=== PATIENT | male | born 1955 | race Caucasian/White ===

== ENCOUNTER 2016-05-06 09:01 | Emergency (ER) | payer OTHER ==
[~2016-05-06] VITALS: Ht 177.8 cm; Wt 81.5 kg
[2016-05-06 09:19] VITALS: Ht 177.8 cm; Wt 81.5 kg
[2016-05-06] MEDS ORDERED: ONDANSETRON 4 MG INJ IV STA ×2 (10:07→12:58)
[2016-05-06] MEDS ORDERED: SOD CHLORIDE 0.9% 1,000 ML IV STA (10:07)
[2016-05-06] MEDS ORDERED: morphine 4 MG/ML VIAL IV STA (10:07)
[2016-05-06] MEDS ORDERED: ONDANSETRON 4 MG INJ ONE ×2 (10:23→12:56)
[2016-05-06] MEDS ORDERED: morphine 4 MG/ML VIAL ONE (10:24)
[2016-05-06 10:48] LABS: HEMATOCRIT 32.7 % (42.0-52.0); HEMOGLOBIN 10.9 g/dl (14.0-18.0); MEAN CORPUSCULAR HEMOGLOBIN 28.9 pg (29.0-33.0); MEAN CORPUSCULAR HGB CONC 33.4 g/dl (32.0-37.0); MEAN CORPUSCULAR VOLUME 86.5 fl (82.0-101.0); MEAN PLATELET VOLUME 8.2 fl (7.4-10.4); PLATELET COUNT 144 10^3/UL (140-440); RED BLOOD COUNT 3.78 10^6/ul (4.70-6.10); RED CELL DISTRIBUTION WIDTH 20.5 % (11.5-14.5); UNCORRECTED WBC 6.8 10^3/ul (4.8-10.8); WHITE BLOOD COUNT 6.8 10^3/ul (4.8-10.8)
[2016-05-06 10:50] LABS: CONDITION 1; LH ANALYZER COMMENTS 1
[2016-05-06] MEDS ORDERED: LENA2.5C PO (10:55)
[2016-05-06] MEDS ORDERED: FINA5TAB4 PO (10:55)
[2016-05-06] MEDS ORDERED: OXYC10TA63 PO (10:55)
[2016-05-06 11:06] LABS: ALBUMIN 3.1 g/dl (3.3-4.9)
[2016-05-06 11:07] LABS: POTASSIUM 5.7 mmol/L (3.5-5.1)
[2016-05-06 11:08] LABS: CREATININE 1.61 mg/dl (0.61-1.24)
[2016-05-06 11:09] LABS: ALBUMIN/GLOBULIN RATIO 0.79; BILIRUBIN,DIRECT 0.3 mg/dl (0.00-0.20); BILIRUBIN,INDIRECT 0.9 mg/dl (0-1.1); BILIRUBIN,TOTAL 1.2 mg/dl (0.2-1.3); CALCIUM 9.5 mg/dl (8.4-10.2)
[2016-05-06 11:21] LABS: EOSINOPHILS # 0.1 10^3/ul (0.0-0.5); LYMPHOCYTES # 2.3 10^3/ul (0.8-2.9); MONOCYTE # 1.1 10^3/ul (0.3-0.9); NEUTROPHIL # 3.2 10^3/ul (1.6-7.5)
[2016-05-06 13:36] LABS: ADD UMIC NO; URINE BILIRUBIN (Dip) NEGATIVE (NEGATIVE); URINE BLOOD (Dip) NEGATIVE (NEGATIVE); URINE COLOR YELLOW (YELLOW); URINE GLUCOSE (Dip) NEGATIVE (NEGATIVE); URINE KETONES (Dip) NEGATIVE (NEGATIVE); URINE LEUKOCYTE ESTERASE (Dip) NEGATIVE (NEGATIVE); URINE NITRITE (Dip) NEGATIVE (NEGATIVE); URINE TOTAL PROTEIN (Dip) NEGATIVE (NEGATIVE); URINE UROBILINOGEN (Dip) 1.0 E.U./dL (0.1-1.0)
--- NOTE | 2016-05-06 15:29 | ERD ---
ER Documentation Chief Complaint Date/Time DATE: 05/06/16 TIME: 15:24 Chief Complaint ABD PAIN W/ N/V & CONSTIPATION SINCE SATURDAY. PT RECIEVES CHEMOTHERAPY. HPI Patient presents with diffuse abdominal pain since Saturday. He has felt nauseated with vomiting. He states the pain moves all over his abdomen. He has been somewhat constipated although he did have a bowel movement yesterday that was normal. Denies any diarrhea, dysuria, hematuria, fever, back pain, flank pain, hematemesis, melena, hematochezia, abdominal trauma. States nothing makes the pain better, nothing makes the pain worse. His last chemo was on April 24. He has prostate cancer which is metastatic to the bones. He denies any chest pain, shortness of breath, hemoptysis, coughing, congestion , rhinorrhea, dyspnea, sore throat, otalgia. He does complain of some left lower extremity swelling. In the remainder of the systems are negative ROS All systems reviewed and are negative except as per history of present illness. Medications Home Meds Reported Medications Finasteride* (Finasteride*) 5 Mg Tablet, 5 MG PO DAILY, TAB 05/06/16 Lenalidomide (REVLIMID) 2.5 Mg Capsule, 5 MG PO DAILY, CAP 05/06/16 Oxycodone Hcl* (Oxycontin*) 10 Mg Tab.sr.12h, 10 MG PO EVERY 4-6 HOURS Y for PAIN, TAB 05/06/16 Allergies Allergies: Coded Allergies: No Known Allergy (Unverified , 05/06/16) PMhx/Soc Hx Miscellaneous Medical Probl: Yes (PROSTATE CA ) Hx Alcohol Use: Yes Hx Substance Use: No Hx Tobacco Use: No Smoking Status: Never smoker FmHx Family History: No coronary disease Physical Exam Vitals Vital Signs Date Time Temp Pulse Resp B/P Pulse Ox O2 Delivery O2 Flow Rate FiO2 05/06/16 09:19 98.9 105 22 120/57 99 Physical Exam Const: Well-developed well-nourished male sitting on the bed in no acute distress. Head: Atraumatic Eyes: Normal Conjunctiva ENT: Normal External Ears, Nose and Mouth. Neck: Full range of motion..~ No meningismus. Resp: Clear to auscultation bilaterally Cardio: Regular rate and rhythm, no murmurs Abd: Soft, mild tenderness to palpation diffusely, non distended. Normal bowel sounds Skin: No petechiae or rashes Back: No midline or flank tenderness Ext: No cyanosis, mild edema of the left lower extremity, negative Homans sign, no calf tenderness. Neur: Awake and alert Psych: Normal Mood and Affect Result Diagram: 05/06/16 1030 05/06/16 1030 Results 24 hrs Laboratory Tests Test 05/06/16 10:30 05/06/16 13:10 Alanine Aminotransferase (ALT/SGPT) 234IU/L Albumin 3.1g/dl Albumin/Globulin Ratio 0.79 Alkaline Phosphatase 358IU/L Anion Gap 29 Aspartate Amino Transf (AST/SGOT) 446IU/L Band Neutrophils % 2.0% Basophils # 10^3/ul Basophils % % Blood Morphology Comment Blood Urea Nitrogen 47mg/dl Calcium Level 9.5mg/dl Carbon Dioxide Level 18mmol/L Chloride Level 89mmol/L Creatinine 1.61mg/dl Differential Comment MANUAL DIFF Direct Bilirubin 0.30mg/dl Eosinophils # 0.110^3/ul Eosinophils % 1.0% Globulin 3.90g/dl Glucose Level 106mg/dl Hematocrit 32.7% Hemoglobin 10.9g/dl Indirect Bilirubin 0.9mg/dl Lipase 51U/L Lymphocytes # 2.310^3/ul Lymphocytes % 34.0% Mean Corpuscular Hemoglobin 28.9pg Mean Corpuscular Hemoglobin Concent 33.4g/dl Mean Corpuscular Volume 86.5fl Mean Platelet Volume 8.2fl Monocytes # 1.110^3/ul Monocytes % 16.0% Neutrophils # 3.210^3/ul Neutrophils % 47.0% Nucleated Red Blood Cells # 10^3/ul Nucleated Red Blood Cells % 6.0/100WBC Platelet Count 21457^3/UL Potassium Level 5.7mmol/L Red Blood Count 3.7810^6/ul Red Cell Distribution Width 20.5% Sodium Level 130mmol/L Total Bilirubin 1.2mg/dl Total Protein 7.0g/dl White Blood Count 6.810^3/ul Urine Bilirubin NEGATIVE Urine Clarity CLEAR Urine Color YELLOW Urine Glucose NEGATIVE% Urine Hemoglobin NEGATIVE Urine Ketones NEGATIVE Urine Leukocyte Esterase NEGATIVE Urine Nitrite NEGATIVE Urine Specific [place] 1.025 Urine Total Protein NEGATIVE Urine Urobilinogen 1.0 E.U./dL Urine pH 5.5 Current Medications Medications (Trade) Dose Ordered Sig/Tye Route PRN Reason Start Time Stop Time Status Last Admin Dose Admin Sodium Chloride (NS) 1,000 ml @ 1,000 mls/hr Q1H STAT IV 05/06/16 10:07 05/06/16 11:06 DC 05/06/16 10:31 Morphine Sulfate (morphine) 4 mg ONCE STAT IV 05/06/16 10:07 05/06/16 10:09 DC 05/06/16 10:29 Ondansetron HCl (Zofran Inj) 4 mg ONCE STAT IV 05/06/16 10:07 05/06/16 10:09 DC 05/06/16 10:31 Ondansetron HCl (Zofran Inj) 4 mg ONCE STAT IV 05/06/16 12:58 05/06/16 13:00 DC 05/06/16 13:08 Procedures/MDM CAT scan of the abdomen and pelvis shows prostatic cancer to be present, diffuse adenopathy throughout the abdomen, malignant ascites. Patient does not have any acute infectious process noted. He does not have a bowel obstruction. Ultrasound of the left lower extremity demonstrates no evidence of a DVT. Departure Diagnosis: Primary Impression: Abdominal pain Abdominal location: generalized Qualified Code: R10.84 - Generalized abdominal pain Additional Impressions: Cancer associated pain Pedal edema Condition: Fair Additional Instructions: Please call your oncologist and set up a follow-up appointment to discuss the CAT scan results and further treatment. Continue on your current medication regimen as previously prescribed. Return to the emergency department immediately for any new or worsening symptoms. MUNA HERNANDEZ May 06, 2016 15:29
[2016-05-06 15:45] VITALS: BP 125/79; PULSE 67; RESP 19; TEMP 98.6
--- NOTE | 2016-05-06 19:19 | RADRPT ---
PROCEDURE: US DVT. CLINICAL INDICATION: Swelling in the left leg TECHNIQUE: Multiple longitudinal and transverse images of the left lower extremity veins were obta ined with augustin scale and color Doppler imaging. 2D grayscale measurements with compression, color D oppler flow, and augmentation was performed. The calf veins were interrogated as well. COMPARISON: No prior studies are available for comparison. FINDINGS: The left common femoral, superficial femoral and popliteal veins are normally compressible throughou t. Color flow demonstrates normal filling of the vessel. Normal waveforms are visualized and there is normal response to augmentation. The calf veins are visualized and are within normal limits. RPTAT: EE IMPRESSION: 1. No evidence of a deep vein thrombosis involving the left lower extremity. 2. No abnormalities of the venous system of the left leg identified. .Jeanette Fernandes MD, Date Time Electronically viewed and signed by .Jeanette Fernandes MD, MD on 05/06/2016 15:06 .T/
--- NOTE | 2016-05-06 19:19 | RADRPT ---
PROCEDURE: CT Abdomen and Pelvis without contrast. CLINICAL INDICATION: Abdominal pelvic pain. Known history of prostate cancer. TECHNIQUE: CT scan of the abdomen and pelvis without contrast was performed on a multidetector hig h-resolution CT scanner. The patient was scanned without intravenous contrast. Coronal and sagittal reformatted images were obtained from the axial source images. Images were reviewed on a high-resol [employer] PACS workstation. The total exam CTDI equals 17.65 mGy and the total exam DLP equals 1079.98 m Gy-cm. One or more of the following dose reduction techniques were used: - Automated exposure control. - Adjustment of the mA and/or kV according to patient size. - Use of iterative reconstruction technique. COMPARISON: None. FINDINGS: CT abdomen: The lung bases are remarkable for patchy subsegmental atelectasis within the right middle lobe, left lingula, and lung bases bilaterally. Tiny sliver of fluid is seen layering within the right lung b ase. The heart size is normal, without pericardial thickening or effusion. Mild adenopathy in the right pericardiophrenic recess is present. The liver is normal in size and density without focal mass or intrahepatic biliary dilatation. The spleen is normal in size and homogeneous in density. The stomach is partially collapsed, but is otilia ssly unremarkable. The pancreas as visualized is normal. The gallbladder and biliary tree are unre markable and there is no evidence for biliary dilatation. The adrenal glands are symmetric and norm al. The kidneys are symmetrically unremarkable as well. No renal calculus or obstructive uropathy or mass lesion is seen. The aorta is of normal caliber. Aortic vascular calcifications are present. There is mild diffuse scattered retroperitoneal lymphadenopathy. Mild epigastric and natty hepatis lymphadenopathy is see n as well. The bowel loops scattered throughout the abdomen are unremarkable. Moderate diffuse sca ttered ascites is seen throughout the abdominal cavity. Mesenteric edema is seen as well, moderate in degree. CT pelvis: The small bowel loops situated within the pelvis are unremarkable. Moderate ascites is seen layering within the pelvis. The pelvic organs are remarkable for enlargement and heterogeneity of the prosta te gland. Significant nodularity adjacent to the prostate gland and adjacent to the rectum is seen. Significant perirectal and presacral adenopathy is identified. Severe nodularity and adenopathy w ithin the sigmoid mesentery is identified. Findings are consistent with neoplasm. Adenopathy along the left iliac janessa chain is present. The inguinal regions are clear. Mild stranding and edema in the presacral space is present. Atherosclerotic vascular calcifications are identified within the pelvis. No focal acute inflammatory process is present. The bladder is partially collapsed and decompressed but otherwise grossly unremarkable. The surrounding osseous structures are remarkable for severe and diffuse and extensive osteoscleroti c bony metastases throughout all of the visualized bony structures. IMPRESSION: 1. Severe, diffuse, extensive osteosclerotic metastases throughout all of the bony structures. Fin dings are related to prostate cancer metastases. 2. Enlargement and nodularity of the prostate gland extending to the left posterior pelvis, consist ent with known prostate cancer. 3. Significant nodularity and adenopathy around the [place]-prostatic and perirectal and presacral spa [place] as well as along the posterior pelvis, again consistent with extensive prostate cancer spread. 4. Extensive adenopathy within the retroperitoneum and epigastrium and natty hepatis region. Adeno aneduy is seen in the right pericardiophrenic recess and the left iliac chain as well. Findings are all consistent with diffuse lymphatic spread of neoplasm from prostate cancer. 5. Diffuse moderate ascites throughout the abdominal pelvic cavity with diffuse mesenteric edema. Malignant ascites is most likely, again likely due to the patient's prostate cancer. Call report was made and findings discussed with Dr. James in the ER at 3:05 p.m. on 05/06/2016. RPTAT: HMJB .Gerald Reyes MD, MD Date Time Electronically viewed and signed by .Gerald Reyes MD, MD on 05/06/2016 15:08 .B/
== END 2016-05-06 17:39 | disposition home or self-care (01) ==
LOC: E/R 09:01
DX: R10.84 Generalized abdominal pain (principal); G89.3 Neoplasm related pain (acute) (chronic); R60.0 Localized edema; R11.2 Nausea with vomiting, unspecified; Z85.46 Personal history of malignant neoplasm of prostate
CPT/HCPCS: 36415; 74176; 80053; 81003; 83690; 85025; 93971; 96374; 96375; 96376; J2270; J2405; J7030; Z7502

== ENCOUNTER 2016-05-09 12:39 | Inpatient (IN) | payer OTHER ==
[~2016-05-09] VITALS: Ht 165.1 cm; Wt 86.4 kg
[~2016-05-09 12:39] MED LIST: ETOMIDATE 20 MG INJ ONE; FINA5TAB4 PO; LENA2.5C PO; OXYC10TA63 PO
[2016-05-09] MEDS ORDERED: SOD CHLORIDE 0.9% 150 ML IV STA (13:36)
[2016-05-09] MEDS ORDERED: MEG40/1 PO (13:43)
[2016-05-09] MEDS ORDERED: OXYC30TA PO (13:43)
[2016-05-09] MEDS ORDERED: TAMS0.4C2 PO (13:43)
[2016-05-09] MEDS ORDERED: ENZA40CA PO (13:44)
[2016-05-09] MEDS ORDERED: CHOL100062 PO (13:45)
[2016-05-09] MEDS ORDERED: ONDA-43 PO (13:45)
[2016-05-09] MEDS ORDERED: OXYCODONE/ACETAMINOPHEN (10/325) TAB PO ONE (14:00)
--- NOTE | 2016-05-09 14:15 | ERA ---
ER Documentation Chief Complaint Date/Time DATE: 05/09/16 TIME: 1327 Chief Complaint Generalized weakness, fluid retentionin abdomen, low apettite, prostate CA. HPI 60-year-old male presents to the emergency department with his daughter for evaluation of generalized weakness. Patient is a long-standing history of diffuse metastatic advanced prostate cancer. Patient was seen and evaluated on 06 May with a known diagnosis of advanced metastatic cancer. Patient followed up with his oncologist today and was referred back to the emergency department. According to the daughter, patient had a generalized weakness over the last few days which is progressive. Patient has had no fevers or chills. Patient has had no shortness of breath. The daughter reports the patient having increasing abdominal distention. Patient reports requiring his ongoing pain medication, but with no new medications recently. ROS All systems reviewed and are negative except as per history of present illness. Medications Home Meds Reported Medications Ondansetron Hcl* (Zofran*) 4 Mg Tab, 4 MG PO Q6 Y for NAUSEA AND OR VOMITING, TAB 05/09/16 Cholecalciferol* (Vitamin D3*) 1,000 Unit Tablet, 1000 UNIT PO DAILY, TAB 05/09/16 Enzalutamide (XTANDI) 40 Mg Capsule, 160 MG PO DAILY, CAP 05/09/16 Megestrol Acetate* (Megestrol Acetate*) 400 Mg/10 Ml Susp, 200 MG PO BID, ML 05/09/16 Oxycodone Hcl* (IR) (Oxycodone Hcl*) 30 Mg Tablet, 30 MG PO Q4H WHILE AWAKE Y for PAIN, TAB 05/09/16 Tamsulosin Hcl* (Tamsulosin Hcl*) 0.4 Mg Cap.er.24h, 0.4 MG PO HS, CAP 05/09/16 Finasteride* (Finasteride*) 5 Mg Tablet, 5 MG PO DAILY, TAB 05/06/16 Lenalidomide (REVLIMID) 2.5 Mg Capsule, 5 MG PO DAILY, CAP 05/06/16 Discontinued Reported Medications Oxycodone Hcl* (Oxycontin*) 10 Mg Tab.sr.12h, 10 MG PO EVERY 4-6 HOURS Y for PAIN, TAB 05/06/16 Allergies Allergies: Coded Allergies: No Known Allergy (Unverified , 05/09/16) PMhx/Soc Hx Miscellaneous Medical Probl: Yes (PROSTATE CA ) Hx Alcohol Use: Yes Hx Substance Use: No Hx Tobacco Use: No FmHx Noncontributory for chief complaint with supportive daughter at the bedside. Physical Exam Vitals Vital Signs Date Time Temp Pulse Resp B/P Pulse Ox O2 Delivery O2 Flow Rate FiO2 05/09/16 13:00 97.5 116 22 96/57 98 Physical Exam GENERAL: Patient is a frail, elderly, pale appearing male. HEENT: Pupils equal, round, and reactive to light. EOMI. There is no scleral icterus. Pallor is noted NECK: C-spine is soft and supple, there is no meningismus. There is no cervical lymphadenopathy. LUNGS: Clear to auscultation bilaterally. There are no rales, wheezes or rhonchi. HEART: Regular rate and rhythm, no murmurs, clicks, rubs or gallops. ABDOMEN: Soft and distended with a fluid wave. No significant tenderness to palpation. No CVA tenderness EXTREMITIES: 1+ edema bilaterally with no cyanosis or clubbing NEURO: The patient moves all four extremities with 5/5 strength. Cranial nerves II - XII are intact. Normal gait. Alert and oriented SKIN: There is no apparent rash or petechiae. HEME/LYMPHATIC: There is no evidence of excessive bruising or lymphedema. PSYCHIATRIC: The patient does not appear anxious or depressed. Results 24 hrs Current Medications Medications (Trade) Dose Ordered Sig/Tye Route PRN Reason Start Time Stop Time Status Last Admin Dose Admin Sodium Chloride (NS) 150 ml @ 150 mls/hr Q1H STAT IV 05/09/16 13:36 05/09/16 14:35 DC 05/09/16 13:36 Oxycodone/ Acetaminophen (Endocet (10/ 325)) 1 tab ONCE ONCE PO 05/09/16 14:00 05/09/16 14:01 DC 05/09/16 14:35 Procedures/MDM Patient was taken to a room, seen and evaluated. Comfort measures were initiated. Diagnostic tests were ordered and reviewed. 3 LEAD RHYTHM STRIP: Sinus tachycardia EK lead EKG reviewed by myself: Sinus tachycardia Normal [place] and intervals No ST elevation, depression, or T wave inversion Impression: Sinus tachycardia without evidence of obvious acute ischemia RADIOLOGY: reviewed with the radiologist CONSULTATION: hospitalist was notified for admission. I spoke with the patient' s oncologist who referred me to Dr. Coronado, who I spoke with for admission. REEVALUATION: Patient remains hemodynamically stable MEDICAL DECISION MAKIN-year-old male presents to the emergency department with generalized weakness in the setting of a diffuse advanced prostate cancer. Patient is evidence of metastatic disease with metastatic ascites noted on CT scan from the other day. He is anemic but hemodynamically stable and not requiring emergent transfusion. Patient has no evidence of acute obvious infection initially. At this point, patient appears to be significantly weak and dehydrated. I have started fluids. Patient will require admission to the hospital for oncologic consultation, palliative management and further care. Departure Diagnosis: Primary Impression: Prostate cancer metastatic to bone Additional Impressions: Metastatic malignant neoplasm to prostate Malignant ascites Condition: Serious BERNI[place]ASS May 09, 2016 14:14
--- NOTE | 2016-05-09 14:18 | RADRPT ---
PROCEDURE: Chest x-ray CLINICAL INDICATION: Pain. TECHNIQUE: One-view frontal. COMPARISON: None available FINDINGS: The cardiac silhouette is normal. Port-A-Cath overlies the right chest. The catheter is near the cavoatrial junction. Bibasilar scarring versus atelectatic changes are noted. No pneumothorax is noted. No hilar abnormalities are identifiable. Extensive sclerotic bony metastatic disease is identified. This was noted on the patient's recent C T study of 05/06/2016. IMPRESSION: 1. Scarring versus atelectatic changes in the lower lung zones. 2. Extensive sclerotic bony metastatic disease. The patient has a history of prostatic carcinoma. RPTAT: HH .Pasquale Nevarez MD, MD Date Time Electronically viewed and signed by .Pasquale Nevarez MD, on 05/09/2016 14:18 .G/
[2016-05-09 14:51] LABS: HEMATOCRIT 37.8 % (42.0-52.0); HEMOGLOBIN 12.2 g/dl (14.0-18.0); MEAN CORPUSCULAR HEMOGLOBIN 28.9 pg (29.0-33.0); MEAN CORPUSCULAR HGB CONC 32.2 g/dl (32.0-37.0); MEAN CORPUSCULAR VOLUME 89.8 fl (82.0-101.0); MEAN PLATELET VOLUME 7.9 fl (7.4-10.4); PLATELET COUNT 130 10^3/UL (140-440); RED BLOOD COUNT 4.21 10^6/ul (4.70-6.10); RED CELL DISTRIBUTION WIDTH 22.6 % (11.5-14.5); UNCORRECTED WBC 20.6 10^3/ul (4.8-10.8)
[2016-05-09 14:53] LABS: CONDITION 1; SUSPECT 1
[2016-05-09 14:54] LABS: LH ANALYZER COMMENTS 1
[2016-05-09 15:01] LABS: ALBUMIN 3.1 g/dl (3.3-4.9)
[2016-05-09 15:02] LABS: POTASSIUM 5.8 mmol/L (3.5-5.1)
[2016-05-09] MEDS ORDERED: CEFTRIAXONE 1 GM/50 ML (PMX) 50 ML IVPB STA (15:03)
[2016-05-09 15:04] LABS: ALBUMIN/GLOBULIN RATIO 0.77; BILIRUBIN,DIRECT 1.8 mg/dl (0.00-0.20); BILIRUBIN,TOTAL 2.8 mg/dl (0.2-1.3); CREATININE 1.78 mg/dl (0.61-1.24); TOTAL PROTEIN 7.1 g/dl (6.1-8.1)
[2016-05-09 15:05] LABS: CALCIUM 10.4 mg/dl (8.4-10.2)
[2016-05-09 15:19] LABS: ANISOCYTOSIS 3+; HYPOCHROMASIA RARE; POLYCHROMASIA RARE
[2016-05-09 15:20] LABS: PLATELET ESTIMATE PLT APPEAR ADEQUATE
[2016-05-09] MEDS ORDERED: morphine 4 MG/ML VIAL IV STA (15:49)
[2016-05-09 16:00] LABS: WHITE BLOOD COUNT 20.6 10^3/ul (4.8-10.8)
[2016-05-09 16:23] LABS: LYMPHOCYTES # 5.2 10^3/ul (0.8-2.9); MONOCYTE # 2.5 10^3/ul (0.3-0.9); NEUTROPHIL # 9.3 10^3/ul (1.6-7.5)
[2016-05-09 16:24] LABS: BASOPHIL # 0.2 10^3/ul (0.0-0.1); EOSINOPHILS # 1.2 10^3/ul (0.0-0.5); MYELOCYTES # 0.4
[2016-05-09] MEDS ORDERED: MAGNESIUM HYDROXIDE 30ML CUP PO PRN (16:30)
[2016-05-09] MEDS ORDERED: morphine 2 MG INJ IV PRN (16:30)
[2016-05-09] MEDS ORDERED: ALBUTEROL/IPRATROPIUM (NEB) 3 ML AMP HHN PRN (16:30)
[2016-05-09] MEDS ORDERED: ONDANSETRON 4 MG INJ IV PRN (16:30)
[2016-05-09] MEDS: IMIPENEM-CILAST 500MG IV (PMX) 100 ML IVPB SCH (16:30)
[2016-05-09] MEDS ORDERED: NITROGLYCERIN (SL) 0.4 MG TAB SL PRN (16:30)
[2016-05-09] MEDS ORDERED: hydrALAzine 20 MG INJ IV PRN (16:30)
[2016-05-09] MEDS ORDERED: HYDROCODONE/APAP (5/325) TAB PO PRN (16:30)
[2016-05-09] MEDS ORDERED: NA PHOSPHATE/BIPHOS 133 ML ENEMA PR PRN (16:30)
[2016-05-09] MEDS ORDERED: NACL 0.9% 3 ML SYG IV SCH (16:30)
[2016-05-09] MEDS ORDERED: DOCUSATE SODIUM 100 MG CAP PO PRN (16:30)
[2016-05-09] MEDS ORDERED: HYDROmorphONE 1 MG/ML SYG IV PRN ×2 (16:30→22:30)
[2016-05-09] MEDS ORDERED: VANCOMYCIN IV PER PHARMACY XX SCH (16:30)
[2016-05-09] MEDS ORDERED: oxyCODONE 15 MG TAB PO PRN (16:30)
[2016-05-09] MEDS ORDERED: LORAZEPAM 2 MG INJ IV PRN (16:30)
[2016-05-09] MEDS ORDERED: ACETAMINOPHEN 325 MG TAB PO PRN (16:30)
[2016-05-09 17:19] LABS: INR 2.26; PROTIME 25.2 Sec (12.2-14.2)
[2016-05-09 17:20] LABS: PARTIAL THROMBOPLASTIN TIME 37.9 Sec (25.0-35.0)
--- NOTE | 2016-05-09 17:33 | EN ---
Date/Time of Note Date/Time of Note DATE: 05/09/16 TIME: 17:32 ER Progress Note This patient had an ultrasound paracentesis ordered. The concern was to rule out spontaneous pectoral peritonitis. The patient was started on Rocephin here in the emergency room. The patient's oncologist was at bedside and was requesting a MRI of the thoracic, cervical, lumbar spine to rule out metastases. This patient was an MRI and I was notified that our interventional radiologist could not perform the paracentesis. The paracentesis will be done tomorrow morning. MOMO CRAIG DO May 09, 2016 17:33
--- NOTE | 2016-05-09 17:49 | CONS ---
DATE OF ADMISSION: 05/09/2016 DATE OF CONSULTATION: ADDENDUM The patient also has a Port-A-Cath in place and, although it is not tender, it could also be the bisi rce of infection and therefore the vancomycin is certainly appropriate as well as the imipenem. Dictated By: LEV PECK MD, JD/GHASSAN Conf#: [id number] DID#: [id number]
--- NOTE | 2016-05-09 17:54 | CONS ---
DATE OF ADMISSION: 05/09/2016 DATE OF CONSULTATION: 05/09/2016 TYPE OF CONSULTATION: Infectious Disease. REASON FOR CONSULTATION: Antibiotic management. HISTORY OF PRESENT ILLNESS: Ovidio Gaona is a 60-year-old, unfortunate, male who comes in with generalized weakness, fluid retention, poor appetite and prostate CA. His problems include a l ongstanding history of diffuse metastatic advanced prostate CA. He was seen by an oncologist and wa s referred back to the emergency room. He had generalized weakness over the last few days, which is progressive. He has no fever or chills. He has no shortness of breath. Daughter reports that yasir koehler is having increasing abdominal distention and he requires ongoing pain medicines. PAST MEDICAL HISTORY: Operations, as outlined. FAMILY HISTORY: Noncontributory. SOCIAL HISTORY: He does not smoke. He drinks some alcohol. He does not abuse substances. ALLERGIES: NONE TO PENICILLIN, SULFA OR FOODS. MEDICATIONS: Per chart. REVIEW OF SYSTEMS: As per HPI. PHYSICAL EXAMINATION GENERAL: The patient is an elderly appearing, frail, pale male, alert, responsive, in no acute dist ress. VITAL SIGNS: Stable. He is afebrile. SKIN: Without generalized rash. HEENT: Within normal limits. NECK: Supple. LYMPHATIC: Lymph nodes, none palpable. CHEST: Decreased breath sounds at the bases. HEART: Without murmur or gallops. ABDOMEN: Soft, nontender, distended with a fluid wave, without organosplenomegaly or masses. He arndt s no CVA tenderness. EXTREMITIES: Without cyanosis, clubbing or edema. RECTAL: Deferred. GENITAL: Deferred. NEUROLOGIC: No focal neurological abnormalities. IMAGING: A chest x-ray shows scarring versus atelectatic changes in the lower lung zones, extensive sclerotic bony metastases, with a history of prostate CA. ANCILLARY LABORATORY DATA: His white count was 20.6; H and H of 12.2 and 37.8; platelet count of 13 0,000, with 45% polys, 6% bands. BUN and creatinine are 47 and 1.78. Bilirubin is 2.8, direct bili watkins is 1.8, AST is 516, ALT 247, alkaline phosphatase 382. Total protein 7.1, albumin is 3.1, shade bulin 4.0. IMPRESSION AND PLAN: The patient appears to have sepsis with significant leukocytosis. He has gene ralized weakness. He has had 2 blood cultures and a urine culture drawn. He is currently on vancom ycin and imipenem to cover all entities and I concur with that. I will await his cultures, urine an d blood. I will dictate my findings to the hospitalist. Dictated By: LEV PECK MD, JD/GHASSAN Conf#: [id number] DID#: [id number]
--- NOTE | 2016-05-09 18:13 | CONS ---
Date/Time of Note Date/Time of Note DATE: 05/09/16 TIME: 17:56 Assessment/Plan Assessment/Plan Chief Complaint/Hosp Course The patient is a 60 year old male treated by Dr. César Barnes with metastatic prostate cancer, GS 10, with diffuse osseous mets and diffuse LAD, diagnosed 2015 previously on hormonal therapy and taxotere/carboplatin/avastin then xtandi with progression, and now was planning on being switched to cabazitaxel due to progression of disease, but presents with lethargic, decreased PO intake , back and abdominal pain, weakness and increased abdominal distention for the past week. - Plan for STAT MRI C-T-L spine due to new incontinence, worsening weakness, and back pain to rule out cord compression in the setting of diffuse osseous mets from prostate cancer - Plan for paracentesis, rule out SBP, please send for cytology - Case discussed with his primary oncologist Dr. Barnes. Plan for supportive care, then plan to initiate cabazitaxel once discharged. Will continue to follow. Problems: Consultation Date/Type/Reason Admit Date/Time Date of Consultation: May 09, 2016 Type of Consultation: Hematology/Oncology Reason for Consultation Metastatic prostate cancer Hx of Present Illness The patient is a 60 year old male treated by Dr. César Barnes with metastatic prostate cancer, GS 10, with diffuse osseous mets and diffuse LAD, diagnosed 2015 previously on hormonal therapy and taxotere/carboplatin/avastin then xtandi with progression, and now was planning on being switched to cabazitaxel due to progression of disease, but presents with lethargic, decreased PO intake , back and abdominal pain, weakness and increased abdominal distention for the past week. His family also reports new incontinence and worsening weakness with difficulty walking from the bed to the restroom. 10 point review of systems neg except as noted above Past Medical History Diabetes Metastatic prostate cancer Family History Significant Family History: no pertinent family hx Social History Alcohol Use: none Smoking Status: Never smoker Exam/Review of Systems Vital Signs Vitals Vital Signs Date Time Temp Pulse Resp B/P Pulse Ox O2 Delivery O2 Flow Rate FiO2 05/09/16 13:00 97.5 116 22 96/57 98 Exam Constitutional: alert, distress, oriented Head: normocephalic Neck: supple Respiratory: clear to auscultation Cardiovascular: regular rate and rhythm Gastrointestinal: ascites, soft Musculoskeletal: nl extremities to inspection Neurological: other (5-/5 throughout, no saddle anesthesia, sensation intact to light touch) Results Result Diagram: 05/09/16 1428 05/09/16 1428 Results 24 hrs Laboratory Tests Test 05/09/16 14:15 05/09/16 14:28 05/09/16 16:45 Free Thyroxine 1.57 Alanine Aminotransferase (ALT/SGPT) 247 H Albumin 3.1 L Albumin/Globulin Ratio 0.77 Alkaline Phosphatase 382 H Anion Gap 41 H Anisocytosis 3+ Aspartate Amino Transf (AST/SGOT) 516 H Band Neutrophils % 6.0 H Basophils # 0.2 H Basophils % 1.0 Blood Morphology Comment Blood Urea Nitrogen 47 H Calcium Level 10.4 H Carbon Dioxide Level 7 *L Chloride Level 90 L Creatinine 1.78 H Direct Bilirubin 1.80 H Eosinophils # 1.2 H Eosinophils % 6.0 Globulin 4.00 H Glucose Level 126 Hematocrit 37.8 L Hemoglobin 12.2 L Hypochromasia RARE Indirect Bilirubin 1.0 Lipase 70 Lymphocytes # 5.2 H Lymphocytes % 25.0 Macrocytosis 1+ Mean Corpuscular Hemoglobin 28.9 L Mean Corpuscular Hemoglobin Concent 32.2 Mean Corpuscular Volume 89.8 Mean Platelet Volume 7.9 Metamyelocytes # 0.4 Metamyelocytes % 2.0 H Monocytes # 2.5 H Monocytes % 12.0 H Myelocytes # 0.4 Myelocytes % 2.0 H Neutrophils # 9.3 H Neutrophils % 45.0 Nucleated Red Blood Cells # Nucleated Red Blood Cells % 21.0 H Platelet Count 130 L Platelet Estimate PLT APPEAR ADEQUATE Polychromasia RARE Potassium Level 5.8 H Promyelocytes # 0.2 Promyelocytes % 1.0 H Reactive Lymphocytes % Red Blood Count 4.21 L Red Cell Distribution Width 22.6 H Sodium Level 132 L Total Bilirubin 2.8 H Total Protein 7.1 White Blood Count 20.6 #H Activated Partial Thromboplast Time 37.9 H INR International Normalized Ratio 2.26 Prothrombin Time 25.2 H Prothrombin Time Ratio 2.0 Medications Medications Current Medications Ondansetron HCl (Zofran Inj) 4 mg Q6H PRN IV NAUSEA AND/OR VOMITING; Start 05/09 at 16:30 Acetaminophen (Tylenol Tab) 650 mg Q6H PRN PO PAIN LEVEL 1-3 OR FEVER; Start at 16:30 Acetaminophen/ Hydrocodone Bitart ([place] (5/325)) 1 tab Q6H PRN PO MODERATE PAIN LEVEL 4-6; Start 05/09/16 at 16:30 Morphine Sulfate (morphine) 2 mg Q4H PRN IV SEVERE PAIN LEVEL 7-10; Start at 16:30 Hydromorphone HCl (Dilaudid) 0.5 mg Q4H PRN IV SEVERE PAIN LEVEL 7-10; Start at 16:30 Docusate Sodium (Colace) 100 mg Q12H PRN PO CONSTIPATION; Start 05/09/16 at 16: 30 Magnesium Hydroxide (Milk Of Mag) 30 ml DAILY PRN PO CONSTIPATION; Start at 16:30 Sodium Biphosphate/ Sodium Phosphate (Fleet Enema) 133 ml DAILY PRN VT CONSTIPATION; Start 05/09/16 at 16:30 Pantoprazole (Protonix Iv) 40 mg DAILY@06 IV ; Start 05/10/16 at 06:00 Heparin Sodium (Porcine) (Heparin (5000 Units/0.5 ml)) 5,000 unit Q12 SC ; Start 05/09/16 at 21:00 Lorazepam (Ativan) 0.5 mg Q6H PRN IV ANXIETY; Start 05/09/16 at 16:30 Vancomycin HCl (Vanco Iv Per Pharmacy) VANCOMYCIN PER PHARMACY NOTE XX ; Start 05/09/16 at 16:30; Status UNV Hydralazine HCl (Apresoline) 10 mg Q6H PRN IV ELEVATED BLOOD PRESSURE; Start at 16:30 Nitroglycerin (Nitroglycerin (Sl Tab) 0.4 Mg) 1 tab Q5M PRN SL ANGINA; Start at 16:30 Cholecalciferol (Vitamin D) 1,000 unit DAILY PO ; Start 05/10/16 at 09:00 Finasteride (Proscar) 5 mg DAILY PO ; Start 05/10/16 at 09:00 Megestrol Acetate (Megace Susp) 200 mg BID PO ; Start 05/09/16 at 21:00 Tamsulosin HCl (Flomax) 0.4 mg HS PO ; Start 05/09/16 at 21:00 Miscellaneous Information 160 mg DAILY PO ; Start 05/10/16 at 09:00; Status UNV Miscellaneous Information 5 mg 5 mg DAILY PO ; Start 05/10/16 at 09:00; Status UNV Imipenem/ Cilastatin Sodium (Primaxin 500 Mg/ 100 ml (Pmx)) 100 ml @ 100 mls/ hr Q8 IVPB ; Start 05/09/16 at 16:30 TOMARY KATE MD May 09, 2016 18:09
--- NOTE | 2016-05-09 18:19 | RADRPT ---
PROCEDURE: MR Cervical Spine. CLINICAL INDICATION: Metastatic disease. Prostate carcinoma. TECHNIQUE: An MRI of the cervical spine was performed on a GE short bore high-definition 1.5 bethany scanner utilizing the following sequences: Sagittal and axial T1 weighted, sagittal and axial T2 we ighted, sagittal T2 weighted with fat saturation, and axial GRE. COMPARISON: No prior studies are available for comparison. FINDINGS: Of the visualized intracranial contents and posterior fossa contents are unremarkable. The cervical spinal cord is normal in course and caliber. No focal intramedullary signal abnormality. There is a diffuse marrow signal loss throughout the entire visualized cervical upper thoracic spine compati ble with metastatic disease and marrow infiltration. Diffuse sclerosis is noted on CT involving all visualized vertebral bodies compatible with sclerotic metastasis. Marrow signal hyperintensity within C2, C4, C5, C6, T1, and T3. Which may represent a combination o f metastatic disease and degenerative marrow changes. Reversal of the normal cervical lordosis greatest at C5-C6. Occiput-C2: The anatomic relationships are normal without canal stenosis. C2-3: The intervertebral disc is normal without foraminal or canal narrowing. C3-4: The intervertebral disc is normal without foraminal or canal narrowing. Minimal anterolisthes is of C3-C4 of 1-2 mm. No disk protrusion. C4-5: Anterior endplate spurring. The intervertebral disc is normal without foraminal or canal narr owing. Mild circumferential disk bulging without disk protrusion. C5-6: Anterior endplate spurring. The intervertebral disc is normal without foraminal or canal narro wing. Minimal disk bulging and posterior spondylitic ridging. C6-7: Anterior endplate spurring. The intervertebral disc is normal without foraminal or canal narr owing. C7-T1: The intervertebral disc is normal without foraminal or canal narrowing. No paraspinal soft tissue mass. Image degradation secondary to patient motion. IMPRESSION: 1. Reversal of the normal cervical lordosis without focal disk protrusion or significant stenosis. 2. Normal-caliber cervical spinal cord without evidence of syringohydromyelia. 3. Extensive marrow replacement and metastatic disease most pronounced involving C2, C4, C5, C6 , T 1 and T3 vertebral bodies. RPTAT:AAJJ J Port, Physician Date Time Electronically viewed and signed by Bharathi Anguiano Physician on 05/09/2016 18:19 NICHOLE/
--- NOTE | 2016-05-09 18:32 | RADRPT ---
PROCEDURE: MRI Thoracic Spine without contrast. CLINICAL INDICATION: 60-year-old male with extensive metastatic prostate cancer and generalized we akness. Evaluate for cord compression. TECHNIQUE: An MRI of the thoracic spine was performed with multiple sequences in the sagittal and axial planes without contrast. Images reviewed on a high-resolution PACS system. COMPARISON: CT abdomen pelvis 05/06/2016 FINDINGS: There is diffuse, extensive heterogeneity of the marrow signal throughout the lumbar spine, with weston r complete replacement of the T5, T7, T8 and T9 vertebral bodies with tumor. There is suggestion of prominence of the left epidural space at T7, which may be related to epidural spread of tumor (axia l series image 25, sagittal series image 4).. There is also isointense signal in the epidural space at T9 (sagittal series image 9, axial image 34), which may represent epidural extension of tumor at this level. There is no significant narrowing of the thoracic thecal sac the alignment of the thor acic spine is within normal limits. There is minimal desiccation of the T5-6 and T6-7 intervertebra l discs with preserved heights. No significant discogenic endplate changes are seen. There is no d efinite evidence of pathologic fracture at this time. IMPRESSION: 1. Diffuse, extensive heterogeneity of the marrow signal throughout the thoracic spine consistent w ith extensive prostate cancer metastases. There is isointensity in the epidural space at T7 and T9, concerning for possible epidural extension of tumor. Post contrast MRI of the thoracic spine is re commended for further evaluation. 2. Mild degenerative disc disease in the mid thoracic spine. 3. The thoracic spinal cord is normal in signal and caliber. No definite compression of the thoraci c spinal cord is seen at this time. RPTAT: HGAS .Shawn Del Castillo MD, MD Date Time Electronically viewed and signed by .Shawn Del Castillo MD, on 05/09/2016 18:32 .S/
[2016-05-09 18:42] VITALS: TEMP 97.8
--- NOTE | 2016-05-09 18:48 | RADRPT ---
PROCEDURE: MRI Lumbar Spine without contrast. CLINICAL INDICATION: 60-year-old male with metastatic prostate cancer, weakness. TECHNIQUE: An MRI of the lumbar spine was performed with multiple sequences in the sagittal and ax ial planes without contrast. Images reviewed on a high-resolution PACS system. COMPARISON: None available at the time of dictation. FINDINGS: there is straightening of the lumbar spine without significant reversal of normal lumbar lordosis . No vertebral body subluxation is seen. There is desiccation of the intervertebral discs from L3-4 to L5-S1 with mild loss of disc-space height at these levels. The vertebral body heights are mainta ined. There is no definite evidence of acute compression fracture at this time. There is extensive heterogeneity throughout the lumbar spine vertebral bodies, consistent with patient history of meta static prostate cancer, with involvement of the spinous processes as well as the pedicles. The conu s medullaris is visible at the L1 level and appears grossly normal. The lumbar nerve roots are nor mal in appearance. The paraspinal soft tissues are unremarkable. No significant paraspinal soft tis bandar swelling. L1-L2: There is a 1 mm annular disc bulge. The thecal sac and lateral recesses are patent. The ne ural foramina are patent. L2-L3: There is a 2 mm annular disc bulge. The thecal sac and lateral recesses are patent. There is mild bilateral facet spondylosis. There is mild bilateral neural foraminal narrowing. L3-L4: There is a 4-5 mm posterior disc bulge, slightly asymmetric to the right. The thecal sac me asures 6.5 mm midline AP diameter. There is severe right and moderate left lateral recess narrowing . There is mild bilateral facet spondylosis. There is mild prominence of the dorsal epidural fat. There is moderate bilateral neural foraminal narrowing. L4-L5: There is a 2-3 mm annular disc bulge. The thecal sac is patent. There is mild narrowing of both lateral recesses. There is mild bilateral facet spondylosis. There is moderate bilateral jamal ral foraminal narrowing. L5-S1: There is a 2-3 mm annular disc bulge. The thecal sac is patent. There is mild narrowing of both lateral recesses. There is mild bilateral facet spondylosis. There is moderate bilateral jamal ral foraminal narrowing. IMPRESSION: 1. 4-5 mm posterior disc bulge at L3-4 with subsequent severe spinal stenosis, severe right and mod erate left lateral recess narrowing and moderate bilateral neural foraminal narrowing. 2. The remaining lumbar spine demonstrates moderate spondylosis without significant narrowing of th e lumbar thecal sac. There is mild narrowing of both lateral recesses at L4-5. 3. Extensive heterogeneity of the marrow signal consistent with given patient history of metastatic prostate cancer. No definite evidence of epidural spread of tumor is seen at this time. Post cont rast evaluation may be helpful for further evaluation. The above findings were discussed with Patient's physician Maryjane Carroll by telephone on 05/09/2016 6:45:35 PM. RPTAT: HGAS .Shawn Del Castillo MD, MD Date Time Electronically viewed and signed by .Shawn Del Castillo MD, MD on 05/09/2016 18:47 .S/
[2016-05-09] MEDS ORDERED: SODIUM BICARBONATE (IV ADD) 150 MEQ in DEXTROSE 5% 1,000 ML IV SCH (19:00)
--- NOTE | 2016-05-09 19:38 | HP ---
DATE OF ADMISSION: 05/09/2016 CHIEF COMPLAINT: Generalized weakness, low appetite, and fluid abdominal retention. HISTORY OF PRESENT ILLNESS: A 60-year-old male with past medical history of diffuse metastatic adva nced prostate cancer followed by Dr. Barnes, hematology/oncology doctor, as an outpatient who, per rachel rodriguez, has been having lethargy, some vomiting, symptoms of abdominal distention. The symptoms have been going on for about the last 1 or 1-1/2 weeks. He has also had decreased bowel movements and h e has been having nonbilious, nonbloody vomiting despite or p.o. intake. No upper or lower GI bleed ing, no headaches, chest pain, no loss consciousness, no fevers or chills. Family took him to the ematology/oncology doctor mentioned above and hematology/oncology doctor became concerned and instru cted the family to bring the patient to the ER, given the patient's symptoms. When he came in today , he was found with an elevated white blood cell count of 20,000, and also elevated lactic acid leve ls as well and elevated LFTs and was seen by infectious disease team and hematology/oncology team he re in the ER as well. PAST MEDICAL HISTORY: As stated above. ALLERGIES: NO KNOWN DRUG ALLERGIES. MEDICATIONS: 1. Xtandi 160 mg daily. 2. Revlimid 5 mg daily. 3. Megace 200 mg b.i.d. 4. Flomax 0.4 mg at bedtime. 5. OxyIR 30 mg p.o. q.4 p.r.n. 6. Zofran 4 mg p.o. q.6h. p.r.n. 7. Vitamin D3 at 1000 units daily. 8. Finasteride 5 mg daily. PAST SURGICAL HISTORY: As stated above. ALLERGIES: NO KNOWN DRUG ALLERGIES. SOCIAL HISTORY: Occasional alcohol use, but negative for smoking or IV drug abuse. FAMILY HISTORY: Noncontributory. PHYSICAL EXAMINATION: VITAL SIGNS: T-max 97.5, pulse 116, respirations 22, blood pressure 90/57, satting at 98% on room a ir. GENERAL: The patient is lying in bed in moderate distress, complaining of pain symptoms. HEENT: Pupils equal, round, react to light. Extraocular muscles intact. NECK: Supple. No thyromegaly. LUNGS: Clear to auscultation bilaterally. No wheezes. CARDIOVASCULAR: S1, S2 heard. No rubs or gallops. Slightly tachycardic heart rate. ABDOMEN: Soft, but distended with a positive fluid wave. No rebound or guarding. MUSCULOSKELETAL: 1+ pitting edema bilateral lower extremities to the mid calves. NEUROLOGIC: No focal deficits. LABORATORIES: Again, WBC 20.6, hemoglobin 12.2, hematocrit 37.8, platelets of 130. Sodium 130, pot assium 5.7, chloride 89, CO2 of 18, BUN 29, BUN 47, creatinine 1.61. AST is 446, ALT is 234, alkali ne phosphatase 358. Lipase is normal. Lactic acid is greater than 24. IMAGING: C spine CT scan: Normal caliber cervical spinal cord without evidence of syringohydromyel ia. There is metastatic disease in C2, C4, C5, C6, T1, T3 diffuse. For MRI T-spine: Signs of pros elizondo cancer metastasis in the thoracic spine, extensive. MRI L-spine shows again a 4 to 5 mm protru matthew disk bulge at L3-L4 with subsequent severe spinal stenosis, severe right and moderate left late ral recess narrowing, and moderate bilateral neural foraminal narrowing. Chest x-ray: Extensive sc lerotic bony metastatic disease noted. ASSESSMENT AND PLAN: A 60-year-old male coming in with leukocytosis and weakness and lethargy, decr eased p.o. intake, nausea, vomiting with signs of extensive ascites, possible SBP, and also now meta bolic lactic acidosis. 1. Abdominal distention and weakness. Again, I will admit him to intensive care unit. We will do broad-spectrum antibiotics, imipenem and vancomycin. Get an ID consult. Check a TSH, A1c, lipid pa althea. Tylenol p.r.n. pain and fevers as well. Follow up on all culture results. 2. Metabolic lactic acidosis. Again, probably all secondary to his metastatic prostate cancer. Pablo thomas, ICU admission, IV fluids with bicarbonate. Will give him bicarbonate bolus as well. Again mon itor lactic acid every 6 hours as well. Check final culture results as well. Again, hematology/onc ology consult as well. 3. History of prostate cancer metastasis. Again, get hematology/oncology consult. Follow up their recommendations as well. Continue current medications as well. 4. Gastrointestinal prophylaxis. He is going to be on a PPI. 5. Deep vein thrombosis prophylaxis. Heparin subcutaneously. Overall poor prognosis. Dictated By: MURRAY MARK Conf#: [id number] DID#: [id number]
[2016-05-09] MEDS ORDERED: SOD CHLORIDE 0.9% 1,000 ML IV STA ×3 (19:40→22:48)
[2016-05-09] MEDS ORDERED: HYDROmorphONE 1 MG/ML SYG IV STA (19:40)
[2016-05-09] MEDS ORDERED: CALCIUM GLUCONATE 10% 1 GM in SOD CHLORIDE 0.9% 100 ML IVPB ONE (20:00)
[2016-05-09 20:20] LABS: ADD UMIC YES; URINE BILIRUBIN (Dip) 1+ (NEGATIVE); URINE BLOOD (Dip) 1+ (NEGATIVE); URINE COLOR DK. YELLOW (YELLOW); URINE GLUCOSE (Dip) NEGATIVE (NEGATIVE); URINE KETONES (Dip) NEGATIVE (NEGATIVE); URINE LEUKOCYTE ESTERASE (Dip) NEGATIVE (NEGATIVE); URINE NITRITE (Dip) NEGATIVE (NEGATIVE); URINE TOTAL PROTEIN (Dip) NEGATIVE (NEGATIVE); URINE UROBILINOGEN (Dip) 2.0 E.U./dL (0.1-1.0)
[2016-05-09 20:21] LABS: Allen Test ACCEPTAB; Arterial Base Excess -24.7 mmol/L (-3.0-3); Arterial COHb 0.3 % (0.0-3.0); Arterial Fraction of Oxyhgb 95.5 % (93.0-99.0); Arterial HCO3 4.2 mmol/L (22.0-26.0); Arterial MetHb 0.4 % (0.0-1.5); Arterial Total Hemglobin 10.9 g/dl (12.0-18.0); MODE ROOM AIR
[2016-05-09] MEDS ORDERED: PROPOFOL 100 ML IV STA (20:26)
[2016-05-09] MEDS ORDERED: ROCURONIUM 50 MG INJ IV STA (20:26)
[2016-05-09] MEDS ORDERED: PROPOFOL 100 ML ONE (20:26)
[2016-05-09] MEDS ORDERED: ETOMIDATE 20 MG INJ IV STA (20:26)
[2016-05-09 20:30] LABS: ICTOTEST NEGATIVE (NEGATIVE)
[2016-05-09 20:31] LABS: BACTERIA,URINE FEW; SQUAMOUS EPITHELIAL CELL,UR RARE
[2016-05-09] MEDS: SODIUM BICARBONATE (IV ADD) 150 MEQ in SOD CHLORIDE 0.9% 1,000 ML IV SCH (20:36)
[2016-05-09] MEDS ORDERED: TAMSULOSIN (SR) 0.4 MG CAP PO SCH (21:00)
--- NOTE | 2016-05-09 21:16 | RADRPT ---
PROCEDURE: XR Chest. CLINICAL INDICATION: Endotracheal intubation. New right central venous jugular line. TECHNIQUE: Single frontal view of the chest was obtained COMPARISON: Plain film chest dated today, about 6-1/2 hours ago. FINDINGS: Endotracheal intubation seen with tip about 1 cm above the mj. Right central venous port again seen with tip in superior vena cava. New right central venous jugular line in place with tip in the right atrium and recommend withdrawing same about 10 cm and re-imaging to demonstrate tip position within the superior vena cava. Cardiomegaly and atherosclerotic calcifications in the thoracic aorta. Mild bibasilar atelectasis, l eft much greater than right. There is no pleural effusion or pneumothorax. Sclerotic changes in bilateral humeral heads and possible ribs and the bilateral clavicles, suggesti ng osseous metastatic deposit, otherwise nonspecific. IMPRESSION: 1. New endotracheal intubation is seen, with tip about 1 cm above the mj. 2. New right central venous jugular line in place, with the tip in the right atrium, and recommend withdrawing same about 10 cm and re-imaging to demonstrate tip position within the superior vena cav a. 3. Right central venous port again seen, with tip in the superior vena cava. 4. Cardiomegaly and atherosclerotic calcifications in the thoracic aorta. 5. Mild bibasilar atelectasis, left much greater than right. 6. Sclerotic changes in bilateral humeral heads and possible ribs and the bilateral clavicles, sugg esting osseous metastatic deposit, otherwise nonspecific. RPTAT: [facility] Physician Audra Date Time Electronically viewed and signed by Physician Audra on 05/09/2016 21:16 RS/
[2016-05-09] MEDS ORDERED: NA BICARBONATE 8.4% 50 ML SYG IV ONE (21:30)
[2016-05-09 21:46] LABS: AADO2 Arterial 82.6 mmHg (7.0-24.0); Allen Test ACCEPTAB; Arterial COHb 0.3 % (0.0-3.0); Arterial Fraction of Oxyhgb 97.1 % (93.0-99.0); Arterial MetHb 0.5 % (0.0-1.5); Arterial Total Hemglobin 10.1 g/dl (12.0-18.0); Blood Gas Low PEEP Setting 0 cmH2O; MODE VENT - AC
[2016-05-09] MEDS: HEPARIN 5,000 UNIT/0.5 ML SYG SC SCH (21:46)
[2016-05-09] MEDS ORDERED: VANCOMYCIN 1.5 GM in SOD CHLORIDE 0.9% 250 ML IVPB ONE (22:00)
[2016-05-09] MEDS ORDERED: LACTULOSE 30ML CUP NGT ONE (22:00)
[2016-05-09 22:09] LABS: CREATININE 2.2 mg/dl (0.61-1.24)
[2016-05-09 22:10] LABS: CALCIUM 9.3 mg/dl (8.4-10.2)
[2016-05-09 22:19] LABS: POTASSIUM 6.4 mmol/L (3.5-5.1)
--- NOTE | 2016-05-09 22:27 | EN ---
Date/Time of Note Date/Time of Note DATE: 05/09/16 TIME: 22:24 ER Progress Note I was informed by this patient's nurse at the patient had an elevated lactic acid greater than 24. I went in and reevaluated this patient. This patient did appear to be confused, he was arousable. I reviewed this patient's medical records and it appears he is admitted for metastatic prostatic cancer with ascites and leukocytosis. This patient had blood cultures drawn, no urinalysis at this time. The patient did receive broad-spectrum IV antibiotics prior to my evaluation. When I evaluated this patient, he was mildly tachycardic and tachypneic. He did appear to be in moderate respiratory distress. I spoke to the patient's family and the decision was made to intubate this patient for impending respiratory failure, and decreased metabolic demand. This patient did have an ABG drawn as well which showed a severe metabolic acidosis, And a CO2 level of 4. I did start this patient on a bicarb drip. And I spoke to the family and I did place a central line for easier IV access, and fluid administration. After this patient was placed on a bicarb drip I did order repeat basic metabolic panel which showed an elevated potassium of 6.4. The patient was given calcium gluconate prior to me ordering the BMP due to the fact that he had a slightly elevated potassium level prior to the second BMP being ordered. I also ordered an ammonia level which came back elevated at 145. This patient was given lactulose in the emergency room as well. I ordered a CT of the head to rule out any intracranial bleed or stroke. CT is pending at this time. I was notified by the radiologist that the patient did have suspicious finding in the thoracic spine and he requested a MRI of the thoracic spine with contrast. That has been ordered and we are awaiting this patient to be transported to MRI. I have upgraded this patient to the intensive care unit. He is on a propofol drip for sedation, and at this time there is no need for IV vasopressors as he is maintaining a mean arterial pressure greater than 65. The patient's family is aware of his critical condition at this time. I have updated this patient's admitting physician, Dr. bush and he is aware of this patient's critical condition. I did state that this patient could benefit from dialysis as the patient does have severe acidosis, and hyperkalemia. He agrees and states he will talk to nephrology, and this patient will be evaluated by nephrology when they are in the intensive care unit. Endotracheal Intubation by me: Pre assessment performed. See preceding note for details. Pre-oxygenation performed with 100% oxygen RSI: Performed w/o complication or hypoxic events. Medications as ordered. Blade: [Mac 4] ET Tube: 7.5] cm Depth: 23] cm at the lip Intubation confirmed by colorimetric CO2, equal breath sounds, quiet over the stomach. Chest X-ray 1V Interpreted by me: 2 cm above the mj ET tube. Normal soft tissue, No pneumothorax. Central Line Placement by me: Patient consented, sterilely draped, full prep, gown, glove, mask, time out performed. Anesthesia: 1% lidocaine locally Location: Right internal jugular vein Device: Multiple lumen Technique: Seldinger technique. Secured with suture. Results: Venous return from all ports with easy saline flush. No complications. Guide wire retrieved and disposed of. [ED Ultrasound: Central line placed by me using concurrent ultrasound guidance. Real time image archived in the medical record confirms vascular anatomy. [Chest X-ray 1V Interpreted by me: Central line in SVC, Normal soft tissue, No evidence of pneumothorax.] Critical Care: Excluding all billable procedures Time: 62 minutes Treatments/Evaluations: Close monitoring and treatment of unstable vital signs, cardiorespiratory, and neurologic status, while maintaining tight balance of fluid, respiratory, and cardiac interventions. Additional diagnoses: Severe metabolic acidosis Hepatic encephalopathy Hyperkalemia Severe sepsis Severe sepsis Patient's infectious symptoms have not stabilized and the patient is at risk of rapid decompensation. The patient will be admitted for careful hydration, antibiotic therapy, and infectious source control. Severe Sepsis Assessment: Infectious Source: Bacterial peritonitis End organ damage indicated by: [Lactate > 2.0 mmol/L Hypotension( SBP < 90 or >40 mmHG drop or MAP < 65) Acute Resp Failure (sat < 92% w/o oxygen) Stand Up Forklift Operator > 2.0 INR > 1.5 Plt < 100 Bili > 2] Severe Sepsis Managment: Blood Cultures X 2 before broad spectrum antibiotics initiated within 3 hours of recognition. 30 ml/kg NS bolus Completed Initial Lactate: Greater than 24 Repeat Lactate >24 Septic Shock Assessment (1 hour post 30 ml/kg fluid bolus): Hypotension (SBP < 90 or 40 mmHg drop, MAP < 65): [No] Lactic acid > 4.0 yes Perfusion Reassessment for Septic Shock: Temp 97.8F], Pulse 106], RR [24], BP 109/64 Heart Exam: [Tachycardic] Lung Exam: [No Crackles] Capillary Refill: [Delayed] Peripheral Pulses: [Radially present] Skin: [Mottled, pale] Hypotensive Treatment (not required for isolated lactic acid elevation): Comfort Care: No Central LIne: Right internal jugular vein Vasopressor started: Not necessary at this time I considered further perfusion assessment with CVP measurement, SCVO2, bedside ultrasound volume assessment, passive leg raise, trial of further fluid bolus. And preceded with further fluid bolus Accepting Care Team: Current data and ongoing care discussed. Time: Time of admission Primary Provider: Casper Outstanding Data: none MOMO CRAIG DO May 09, 2016 22:27
[2016-05-09] MEDS ORDERED: INSULIN REGULAR, HUMAN 100 UNIT/1 ML 3ML VIAL IV ONE (22:30)
[2016-05-09] MEDS ORDERED: NA POLYST SULFON 15 GM/60 ML BTL PO ONE (22:30)
[2016-05-09] MEDS ORDERED: DEXTROSE 50% 50 ML SYRINGE IV ONE (22:30)
--- NOTE | 2016-05-09 23:03 | RADRPT ---
PROCEDURE: CT Brain without contrast. CLINICAL INDICATION: AMS. The patient has history of prostate carcinoma. TECHNIQUE: A CT of the brain was performed on a multidetector CT scanner utilizing axial sections from the skull base through the vertex without contrast. Images were reviewed on a high-resolution [employer] workstation. Exam CTDI = 44.84 mGy and the DLP = 720.23 mGy-cm. COMPARISON: None available FINDINGS: Mild to moderate diffuse cerebral and cerebellar atrophy is present. There is proportionate dilatat ion of the ventricular system and sulci in a symmetric fashion. There is prominence of the extraaxia l spaces secondary to atrophy. There is no evidence of intracranial mass effect or midline shift. Th ere is the appearance of approximate 3 mm thick subacute right frontal and temporal subdural hematom a. There is also appearance of approximate 2 mm thick upper left frontal acute subdural hematoma. T here is also appearance of approximate 2 mm thick upper left parietal acute extra-axial likely subdu ral hematoma. The augustin/white matter differentiation is preserved. Mild patchy diffuse deep white ma tter microangiopathic ischemic change is seen. There is appearance of diffuse mixed density predomi nately osteoblastic metastatic disease. Vascular calcifications are identified. Endotracheal tube a nd nasogastric tube on the roller repairer topogram. IMPRESSION: Approximate 3 mm thick subacute right frontal and temporal subdural hematoma. There is also appeara nce of approximate 2 mm thick upper left frontal acute subdural hematoma. There is also appearance o f approximate 2 mm thick upper left parietal acute extra-axial likely subdural hematoma. 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 Cri tical result discussed with Dr. Chandler at 11:02 p.m. on 05/09/2016. RPTAT: HJES .Abraham Iniguez MD, MD Date Time Electronically viewed and signed by .Abraham Iniguez MD, MD on 05/09/2016 23:02 .S/
--- NOTE | 2016-05-09 23:30 | EN ---
Date/Time of Note Date/Time of Note DATE: 05/09/16 TIME: 23:26 ER Progress Note The patient was seen earlier by Dr. Kellogg and Dr. Craig and admitted to Dr. Cervantes. I received a phone call from the radiologist Dr. Iniguez regarding about the CT of the brain at 11:05 PM [place] [id number] Radiology Main Line: [phone] DIAGNOSTIC IMAGING REPORT Patient: SETH MORAN : 1955 Age: 60 Sex: M MR #: [id number] DOS: 05/09/16 2207 Ordering MD: MOMO CRAIG DO Location: E/R Room/Bed: PROCEDURE: CT Brain without contrast. CLINICAL INDICATION: AMS. The patient has history of prostate carcinoma. TECHNIQUE: A CT of the brain was performed on a multidetector CT scanner utilizing axial sections from the skull base through the vertex without contrast. Images were reviewed on a high-resolution PACS workstation. Exam CTDI = 44.84 mGy and the DLP = 720.23 mGy-cm. COMPARISON: None available FINDINGS: Mild to moderate diffuse cerebral and cerebellar atrophy is present. There is proportionate dilatation of the ventricular system and sulci in a symmetric fashion. There is prominence of the extraaxial spaces secondary to atrophy. There is no evidence of intracranial mass effect or midline shift. There is the appearance of approximate 3 mm thick subacute right frontal and temporal subdural hematoma. There is also appearance of approximate 2 mm thick upper left frontal acute subdural hematoma. There is also appearance of approximate 2 mm thick upper left parietal acute extra-axial likely subdural hematoma. The augustin/white matter differentiation is preserved. Mild patchy diffuse deep white matter microangiopathic ischemic change is seen. There is appearance of diffuse mixed density predominately osteoblastic metastatic disease. Vascular calcifications are identified. Endotracheal tube and nasogastric tube on the shotgun shell assembly machine operator topogram. IMPRESSION: Approximate 3 mm thick subacute right frontal and temporal subdural hematoma. There is also appearance of approximate 2 mm thick upper left frontal acute subdural hematoma. There is also appearance of approximate 2 mm thick upper left parietal acute extra-axial likely subdural hematoma. 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 Critical result discussed with Dr. Chandler at 11:02 p.m. on 05/09/2016. RPTAT: HJES .Abraham Iniguez MD, MD Date Time Electronically viewed and signed by .Abraham Iniguez MD, on 05/09/2016 23:02 .S/ CC: MOMO CRAIG DO Consultation: I discussed the patient with the on-call neurosurgeon Dr. Ogden at 11:20 PM, who was made aware of the patient condition, the CT scan finding. Disposition: I informed Dr. Shirley at 11:25 PM who was on-call for Dr. Cervantes regarding the CT scan of the brain finding and my discussion with PHYLLIS Beyer MD May 09, 2016 23:30
--- NOTE | 2016-05-09 23:51 | EN ---
Date/Time of Note Date/Time of Note DATE: 05/09/16 TIME: 23:50 ER Progress Note I discussed the patient with Dr. Shirley at 11:50 PM and recommended to him that the patient should not receive heparin and INR of 2.26 needs to be reversed per neurosurgeon Dr. Ogden's request PHYLLIS MARINELLI MD May 09, 2016 23:51
[2016-05-10] VITALS (48 sets, daily range): BP systolic 80–115; BP diastolic 45–77; PULSE 75–123; RESP 21–38; Ht 165.1 cm; Wt 86.4 kg
[2016-05-10] MEDS: MEGESTROL (40 MG/ML) 10ML CUP PO SCH ×2 (00:48→09:27)
--- NOTE | 2016-05-10 04:43 | RADRPT ---
PROCEDURE: XR Chest. CLINICAL INDICATION: central line TECHNIQUE: Single frontal chest x-ray. COMPARISON: 05/09/2016 at 08:43 p.m. FINDINGS: Right central venous catheter tip has been pulled back with its tip near the atriocaval junction ove rlying the tip of the right Port-A-Cath which appears to be in the upper right atrium. Endotracheal tube is approximately 1.5 cm above the mj. Nasogastric tube is in the stomach. There is hypoi nflation of the lungs and bibasilar atelectasis. The heart does not appear to be enlarged. Degener ative changes in thoracic spine and shoulders. There is appearance of diffuse osteoblastic metastat ic disease seen. ECG leads projected over the chest. IMPRESSION: Right central venous catheter tip has been pulled back with its tip near the atriocaval junction ove rlying the tip of the right Port-A-Cath which appears to be in the upper right atrium. Endotracheal tube tip approximate 1.5 cm above the mj. Hypoinflation lungs and bibasilar atelectasis. Diffus e osteoblastic metastatic disease. Please see above. RPTAT: HJES .Abraham Iniguez MD, Date Time Electronically viewed and signed by .Abraham Iniguez MD, on 05/10/2016 04:42 .S/
[2016-05-10] MEDS: SODIUM BICARBONATE (IV ADD) 150 MEQ in SOD CHLORIDE 0.9% 1,000 ML IV SCH (05:12)
[2016-05-10] MEDS: IMIPENEM-CILAST 500MG IV (PMX) 100 ML IVPB SCH ×4 (05:39→22:27)
[2016-05-10 06:17] LABS: HEMATOCRIT 30.9 % (42.0-52.0); HEMOGLOBIN 10.1 g/dl (14.0-18.0); MEAN CORPUSCULAR HEMOGLOBIN 29.5 pg (29.0-33.0); MEAN CORPUSCULAR HGB CONC 32.8 g/dl (32.0-37.0); MEAN PLATELET VOLUME 7.7 fl (7.4-10.4); RED BLOOD COUNT 3.44 10^6/ul (4.70-6.10); RED CELL DISTRIBUTION WIDTH 22.8 % (11.5-14.5); UNCORRECTED WBC 12.5 10^3/ul (4.8-10.8); WHITE BLOOD COUNT 12.5 10^3/ul (4.8-10.8)
[2016-05-10 06:27] LABS: ALBUMIN 2.3 g/dl (3.3-4.9)
[2016-05-10 06:30] LABS: BILIRUBIN,DIRECT 2.1 mg/dl (0.00-0.20); BILIRUBIN,INDIRECT 0.7 mg/dl (0-1.1); BILIRUBIN,TOTAL 2.8 mg/dl (0.2-1.3); TOTAL PROTEIN 5.5 g/dl (6.1-8.1)
[2016-05-10 06:31] LABS: CREATININE 1.91 mg/dl (0.61-1.24)
[2016-05-10 06:32] LABS: CALCIUM 9.1 mg/dl (8.4-10.2); PHOSPHORUS 7.8 mg/dl (2.5-4.9)
[2016-05-10 06:33] LABS: MAGNESIUM 2.5 mg/dl (1.7-2.5)
[2016-05-10 06:42] LABS: CONDITION 1; SUSPECT 1
[2016-05-10 06:46] LABS: POTASSIUM 6.1 mmol/L (3.5-5.1)
--- NOTE | 2016-05-10 07:01 | RADRPT ---
PROCEDURE: MR thoracic spine with and without contrast. CLINICAL INDICATION: Back pain. TECHNIQUE: The study was performed utilizing a Signa HDxt 3 Danni magnet. The following pulse seq uences were obtained: Coronal T2 and axial T1-weighted images. After the administration of 5 cc Ma gnevist intravenous contrast, sagittal and axial T1-weighted images were obtained. Images were revi ewed on a PACS workstation. COMPARISON: Noncontrast MR done 05/09/2016. FINDINGS: Again demonstrated is diffuse, heterogeneous decreased marrow signal throughout the bony s keleton consistent with metastatic disease. Thoracic vertebral body heights and alignment are within normal limits. There is no acute fracture or subluxation. The disk height and signals are within normal limits. There is no disk protrusion or extrusion. There is no central canal or neural nena inal stenosis. The thoracic spinal cord is of normal caliber and signal with no abnormal enhancemen t. There is no paraspinal mass or collection. Postcontrast images demonstrate no abnormal epidural enhancement to suggest extraosseous tumor extension. IMPRESSION: Diffuse, heterogeneous decreased marrow signal consistent with extensive prostate cancer metastases. No abnormal epidural enhancement to suggest extraosseous tumor extension. .Evelio Calderon MD, MD Date Time Electronically viewed and signed by .Evelio Calderon MD, MD on 05/10/2016 07:01 .T/
[2016-05-10 07:14] LABS: ANISOCYTOSIS 2+; EOSINOPHILS # 0.3 10^3/ul (0.0-0.5); LYMPHOCYTES # 2.6 10^3/ul (0.8-2.9); MONOCYTE # 1.1 10^3/ul (0.3-0.9); MYELOCYTES # 0.3; NEUTROPHIL # 5.8 10^3/ul (1.6-7.5)
[2016-05-10 07:15] LABS: PLATELET ESTIMATE PLT APPEAR DECREASED; POLYCHROMASIA RARE
[2016-05-10 07:16] LABS: PLATELET COUNT 75 10^3/UL (140-440)
[2016-05-10] MEDS: PANTOPRAZOLE 40 MG INJ IV SCH (08:24)
[2016-05-10] MEDS ORDERED: LENALIDOMIDE XX SCH (08:30)
[2016-05-10] MEDS ORDERED: ENZALUTAMIDE 160 MG PO SCH (09:00)
[2016-05-10] MEDS ORDERED: LENALIDOMIDE 5 MG PO SCH (09:00)
[2016-05-10] MEDS: HEPARIN 5,000 UNIT/0.5 ML SYG SC SCH (09:00)
[2016-05-10 09:26] LABS: CHOL/HDL RATIO 9.4 RATIO
[2016-05-10] MEDS: CHOLECALCIFEROL 1,000 UNIT TAB PO SCH (09:27)
[2016-05-10] MEDS: FINASTERIDE 5 MG TAB PO SCH (09:27)
[2016-05-10] MEDS ORDERED: NA BICARBONATE 8.4% 50 ML SYG IV STA ×2 (09:42→15:55)
[2016-05-10 10:13] LABS: THYROID STIMULATING HORMONE 0.177 MIU/L (0.465-4.680)
[2016-05-10] MEDS ORDERED: NA BICARBONATE 8.4% 50 ML SYG IV SCH (10:30)
[2016-05-10 11:24] LABS: AADO2 Arterial 142.1 mmHg (7.0-24.0); Allen Test ACCEPTAB; Arterial Base Excess -9.4 mmol/L (-3.0-3); Arterial COHb 0.3 % (0.0-3.0); Arterial HCO3 14.3 mmol/L (22.0-26.0); Arterial MetHb 0.2 % (0.0-1.5); Arterial Total Hemglobin 10.6 g/dl (12.0-18.0); Blood Gas Low PEEP Setting 0 cmH2O; MODE VENT - AC
[2016-05-10] MEDS: SODIUM BICARBONATE (IV ADD) 150 MEQ in DEXTROSE 5% 1,000 ML IV SCH (11:26)
[2016-05-10] MEDS ORDERED: NA POLYST SULFON 15 GM/60 ML BTL PO ONE (11:30)
[2016-05-10] MEDS: LACTULOSE 30ML CUP NGT SCH ×2 (11:32→17:30)
--- NOTE | 2016-05-10 11:42 | PN ---
Date/Time of Note Date/Time of Note DATE: 05/10/16 TIME: 11:30 Assessment/Plan VTE Prophylaxis VTE Prophylaxis Intervention: SCD's Lines/Catheters IV Catheter Type (from Nrs): Central Line Central line still needed: Yes Urinary Cath still in place: Yes Reason Cath still needed: urinary retention Assessment/Plan Chief Complaint/Hosp Course ASSESSMENT AND PLAN: 60-year-old male coming in with leukocytosis and weakness and lethargy, decreased p.o. intake, nausea, vomiting with signs of extensive ascites, possible SBP, severe metabolic lactic acidosis/sepsis, ARF. 1. 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 Res failure as well now. Ammonia elevated = 145. Also with elevated LFT's /liver failure - continue intensive care unit, broad-spectrum antibiotics, imipenem and vancomycin. - IVF's with bicarb, trend lactic acid. f/u pulm, and ID rec's - f/u TSH, A1c, lipid panel. Tylenol p.r.n. pain and fevers as well. - Follow up on all culture results. - mech vent per pulm rec's - lactulose Q6 hrs, monitor LFT's, NH3 levels 2. ARF - Again, probably all secondary to his metastatic prostate cancer - UO is minimal, on aggressive IVF's - renal consult, madelin, - IVF's w/ bicarbonate, monitor UO 3. History of prostate cancer metastasis. Again, get hematology/oncology consult. Follow up their recommendations as well. Continue current medications as well. 4. subdural hematoma - seen on Head CT. - holding anticoagulants - monitor 5. Gastrointestinal prophylaxis - PPI. 6. Deep vein thrombosis prophylaxis - SCD's Overall poor prognosis - will also get palliative care consult - consider changing code status as well if family agrees. Critical care time spent with pt care today = 45 min. Problems: Subjective 24 Hr Interval Summary Free Text/Dictation pt now intubated, in ICU, minimal to no UO. on IVF's w/ bicarb. Head CT shows subdural hematomas, heparin held. Awaiting renal consult now. Exam/Review of Systems Vital Signs Vitals Vital Signs Date Time Temp Pulse Resp B/P Pulse Ox O2 Delivery O2 Flow Rate FiO2 05/10/16 10:00 76 24 95/54 99 Mechanical Ventilator 05/10/16 09:00 95.5 05/10/16 08:50 40 Exam GENERAL: The patient is lying in bed , intubated HEENT: Pupils equal, round, react to light. Extraocular muscles intact. NECK: Supple. No thyromegaly. LUNGS: Clear to auscultation bilaterally. No wheezes. CARDIOVASCULAR: S1, S2 heard. No rubs or gallops. Slightly tachycardic heart rate. ABDOMEN: Soft, but distended with a positive fluid wave. No rebound or guarding. MUSCULOSKELETAL: 1+ pitting edema bilateral lower extremities to the mid calves. NEUROLOGIC: No focal deficits. Results Result Diagram: 05/10/16 0528 05/10/16 0955 Results 24 hrs Laboratory Tests Test 05/09/16 14:15 05/09/16 14:28 05/09/16 16:45 05/09/16 17:40 Free Thyroxine 1.57 Alanine Aminotransferase (ALT/SGPT) 247 H Albumin 3.1 L Albumin/Globulin Ratio 0.77 Alkaline Phosphatase 382 H Anion Gap 41 H Anisocytosis 3+ Aspartate Amino Transf (AST/SGOT) 516 H Band Neutrophils % 6.0 H Basophils # 0.2 H Basophils % 1.0 Blood Morphology Comment Blood Urea Nitrogen 47 H Calcium Level 10.4 H Carbon Dioxide Level 7 *L Chloride Level 90 L Creatinine 1.78 H Direct Bilirubin 1.80 H Eosinophils # 1.2 H Eosinophils % 6.0 Globulin 4.00 H Glucose Level 126 Hematocrit 37.8 L Hemoglobin 12.2 L Hypochromasia RARE Indirect Bilirubin 1.0 Lipase 70 Lymphocytes # 5.2 H Lymphocytes % 25.0 Macrocytosis 1+ Mean Corpuscular Hemoglobin 28.9 L Mean Corpuscular Hemoglobin Concent 32.2 Mean Corpuscular Volume 89.8 Mean Platelet Volume 7.9 Metamyelocytes # 0.4 Metamyelocytes % 2.0 H Monocytes # 2.5 H Monocytes % 12.0 H Myelocytes # 0.4 Myelocytes % 2.0 H Neutrophils # 9.3 H Neutrophils % 45.0 Nucleated Red Blood Cells # Nucleated Red Blood Cells % 21.0 H Platelet Count 130 L Platelet Estimate PLT APPEAR ADEQUATE Polychromasia RARE Potassium Level 5.8 H Promyelocytes # 0.2 Promyelocytes % 1.0 H Reactive Lymphocytes % Red Blood Count 4.21 L Red Cell Distribution Width 22.6 H Sodium Level 132 L Total Bilirubin 2.8 H Total Protein 7.1 White Blood Count 20.6 #H Activated Partial Thromboplast Time 37.9 H INR International Normalized Ratio 2.26 Prothrombin Time 25.2 H Prothrombin Time Ratio 2.0 Lactic Acid Level > 24.0 *H Test 05/09/16 19:05 05/09/16 19:57 05/09/16 19:58 05/09/16 20:05 Lactic Acid Level > 24.0 *H Urine Amorphous Urates MODERATE Urine Bacteria FEW Urine Bilirubin 1+ H Urine Clarity SL HAZY Urine Color DK. YELLOW Urine Glucose NEGATIVE Urine Hemoglobin 1+ H Urine Ictotest NEGATIVE Urine Ketones NEGATIVE Urine Leukocyte Esterase NEGATIVE Urine Microscopic RBC 2-5 Urine Microscopic WBC NONE SEEN Urine Nitrite NEGATIVE Urine Specific [place] >=1.030 H Urine Squamous Epithelial Cells RARE Urine Total Protein NEGATIVE Urine Urobilinogen 2.0 E.U./dL H Urine pH 5.0 Arterial Blood HCO3 4.2 *L Arterial Blood Base Excess -24.7 L Arterial Blood Oxygen Saturation 96.2 Bhupendra Test ACCEPTAB Arterial Blood Gas Puncture Site Right Radial Arterial Blood Carboxyhemoglobin 0.3 Arterial Blood Date Drawn 05/09/2016 8:08:22 PM Arterial Blood Methemoglobin 0.4 Arterial Blood pCO2 (Temp correct) 15.9 L Arterial Blood pH (Temp corrected) 7.036 *L Arterial Blood pO2 (Temp corrected) 116.7 H Blood Gas A-a O2 Differential 14.0 Blood Gas Critical Value Read Back Chucky CRAIG MD Blood Gas Modality ROOM AIR Blood Gas Notified Time 05/09/2016 8:21:20 PM Blood Gas Notified Whom AA Blood Gas Specimen Source Blood arterial Blood Gas Temperature 37.0 FiO2 21.0 Oxyhemoglobin Percent 95.5 Total Hemoglobin 10.9 L Ammonia 145 H Test 05/09/16 20:26 05/09/16 21:49 05/09/16 22:59 05/10/16 00:19 Arterial Blood HCO3 8.0 *L Arterial Blood Base Excess -21.0 L Arterial Blood Oxygen Saturation 97.9 Bhupendra Test ACCEPTAB Arterial Blood Gas Puncture Site Left Radial Arterial Blood Carboxyhemoglobin 0.3 Arterial Blood Date Drawn 05/09/2016 9:35:05 PM Arterial Blood Methemoglobin 0.5 Arterial Blood pCO2 (Temp correct) 29.3 L Arterial Blood pH (Temp corrected) 7.054 *L Arterial Blood pO2 (Temp corrected) 168.9 H Blood Gas A-a O2 Differential 82.6 H Blood Gas Actual Respiration Rate 22 Blood Gas Critical Value Read Back Chucky CRAIG MD Blood Gas Inspiratory Pressure 15.0 Blood Gas Low PEEP Setting 0 Blood Gas Modality VENT - AC Blood Gas Notified Time 05/09/2016 9:46:16 PM Blood Gas Notified Whom AA Blood Gas Respiration Rate 22.0 Blood Gas Specimen Source Blood arterial Blood Gas Temperature 37.0 Blood Gas Tidal Volume 500.0 FiO2 40.0 Oxyhemoglobin Percent 97.1 Total Hemoglobin 10.1 L Anion Gap 38 H Blood Urea Nitrogen 50 H Calcium Level 9.3 Carbon Dioxide Level 9 *L Chloride Level 96 L Creatinine 2.20 H Glucose Level 105 Lactic Acid Level > 24.0 *H 23.1 *H Potassium Level 6.4 *H Sodium Level 137 Bedside Glucose 126 Test 05/10/16 05:20 05/10/16 05:28 05/10/16 09:55 05/10/16 11:00 Lactic Acid Level 20.9 *H Alanine Aminotransferase (ALT/SGPT) 505 H Albumin 2.3 L Alkaline Phosphatase 329 H Anion Gap 35 H Anisocytosis 2+ Aspartate Amino Transf (AST/SGOT) 2563 H Band Neutrophils % 15.0 H Basophils # Basophils % Blood Morphology Comment Blood Urea Nitrogen 52 H Calcium Level 9.1 Carbon Dioxide Level 10 L Chloride Level 99 Cholesterol Level 85 L Cholesterol/HDL Ratio 9.4 Creatinine 1.91 H Differential Comment MANUAL DIFF Direct Bilirubin 2.10 H Eosinophils # 0.3 Eosinophils % 2.0 Giant Platelets RARE Glucose Level 149 # HDL Cholesterol 9 L Hematocrit 30.9 L Hemoglobin 10.1 L Hemoglobin A1c 5.5 Indirect Bilirubin 0.7 LDL Cholesterol, Calculated 31 Large Platelets OCCASIONAL Lymphocytes # 2.6 Lymphocytes % 21.0 Magnesium Level 2.5 Mean Corpuscular Hemoglobin 29.5 Mean Corpuscular Hemoglobin Concent 32.8 Mean Corpuscular Volume 90.0 Mean Platelet Volume 7.7 Metamyelocytes # 0.4 Metamyelocytes % 3.0 H Monocytes # 1.1 H Monocytes % 9.0 Myelocytes # 0.3 Myelocytes % 2.0 H Neutrophils # 5.8 Neutrophils % 46.0 Nucleated Red Blood Cells # Nucleated Red Blood Cells % 11.0 H Phosphorus Level 7.8 H Platelet Count 75 #L Platelet Estimate PLT APPEAR DECREASED Polychromasia RARE Potassium Level 6.1 *H 5.8 H Promyelocytes # 0.3 Promyelocytes % 2.0 H Red Blood Count 3.44 L Red Cell Distribution Width 22.8 H Sodium Level 138 Thyroid Stimulating Hormone (TSH) 0.177 L Total Bilirubin 2.8 H Total Protein 5.5 #L Triglycerides Level 226 H White Blood Count 12.5 #H Arterial Blood HCO3 14.3 L Arterial Blood Base Excess -9.4 L Arterial Blood Oxygen Saturation 97.5 Bhupendra Test ACCEPTAB Arterial Blood Gas Puncture Site Right Radial Arterial Blood Carboxyhemoglobin 0.3 Arterial Blood Date Drawn 05/10/2016 11:02:19 AM Arterial Blood Methemoglobin 0.2 Arterial Blood pCO2 (Temp correct) 25.1 L Arterial Blood pH (Temp corrected) 7.375 Arterial Blood pO2 (Temp corrected) 114.2 H Blood Gas A-a O2 Differential 142.1 H Blood Gas Actual Respiration Rate 24 Blood Gas Low PEEP Setting 0 Blood Gas Modality VENT - AC Blood Gas Notified Time 05/10/2016 11:24:16 AM Blood Gas Notified Whom JLD Blood Gas Respiration Rate 24.0 Blood Gas Specimen Source Blood arterial Blood Gas Temperature 37.0 Blood Gas Tidal Volume 500.0 FiO2 40.0 Oxyhemoglobin Percent 97.0 Total Hemoglobin 10.6 L Medications Medications Current Medications Ondansetron HCl (Zofran Inj) 4 mg Q6H PRN IV NAUSEA AND/OR VOMITING; Start 05/09 at 16:30 Acetaminophen (Tylenol Tab) 650 mg Q6H PRN PO PAIN LEVEL 1-3 OR FEVER; Start at 16:30 Acetaminophen/ Hydrocodone Bitart (Jackson (5/325)) 1 tab Q6H PRN PO MODERATE PAIN LEVEL 4-6; Start 05/09/16 at 16:30 Morphine Sulfate (morphine) 2 mg Q4H PRN IV SEVERE PAIN LEVEL 7-10; Start at 16:30 Docusate Sodium (Colace) 100 mg Q12H PRN PO CONSTIPATION; Start 05/09/16 at 16: 30 Magnesium Hydroxide (Milk Of Mag) 30 ml DAILY PRN PO CONSTIPATION; Start at 16:30 Sodium Biphosphate/ Sodium Phosphate (Fleet Enema) 133 ml DAILY PRN [place] CONSTIPATION; Start 05/09/16 at 16:30 Pantoprazole (Protonix Iv) 40 mg DAILY@06 IV Last administered on 05/10/16 08: 24; Admin Dose 40 MG; Start 05/10/16 at 06:00 Lorazepam (Ativan) 0.5 mg Q6H PRN IV ANXIETY; Start 05/09/16 at 16:30 Vancomycin HCl (Vanco Iv Per Pharmacy) VANCOMYCIN PER PHARMACY NOTE XX ; Start 05/09/16 at 16:30 Hydralazine HCl (Apresoline) 10 mg Q6H PRN IV ELEVATED BLOOD PRESSURE; Start at 16:30 Nitroglycerin (Nitroglycerin (Sl Tab) 0.4 Mg) 1 tab Q5M PRN SL ANGINA; Start at 16:30 Cholecalciferol (Vitamin D) 1,000 unit DAILY PO Last administered on 05/10/16 09:27; Admin Dose 1,000 UNIT; Start 05/10/16 at 09:00 Finasteride (Proscar) 5 mg DAILY PO Last administered on 05/10/16 09:27; Admin Dose 5 MG; Start 05/10/16 at 09:00 Megestrol Acetate (Megace Susp) 200 mg BID PO Last administered on 05/10/16 09: 27; Admin Dose 200 MG; Start 05/09/16 at 21:00 Tamsulosin HCl (Flomax) 0.4 mg HS PO ; Start 05/09/16 at 21:00 Miscellaneous Information 160 mg DAILY PO ; Start 05/10/16 at 09:00; Status UNV Miscellaneous Information 5 mg 5 mg DAILY PO ; Start 05/10/16 at 09:00; Status UNV Imipenem/ Cilastatin Sodium (Primaxin 500 Mg/ 100 ml (Pmx)) 100 ml @ 100 mls/ hr Q8 IVPB Last administered on 05/10/16 05:39; Admin Dose 100 MLS/HR; Start at 16:30 Hydromorphone HCl (Dilaudid) 2 mg Q3H PRN IV SEVERE PAIN LEVEL 7-10; Start 05/09 at 22:30 Miscellaneous Information (*Order Clarification Bulletin) ENZALUTAMIDE (XTANDI) : CAN FAMILY BR... Q8H XX ; Start 05/10/16 at 08:30 Miscellaneous Information (*Order Clarification Bulletin) LENALIDOMIDE (REVLIMID ) CAN FAMILY BR... Q8H XX ; Start 05/10/16 at 08:30 Lactulose 15 gm 15 gm Q6 NGT ; Start 05/10/16 at 12:00 Sodium Bicarbonate 150 meq/Dextrose 1,150 ml @ 100 mls/hr [id number] IV ; Start at 10:00 Vancomycin HCl/ Sodium Chloride (Vancocin/NS) 150 ml @ 75 mls/hr Q24H IVPB ; Start 05/10/16 at 20:00 Sodium Polystyrene Sulfonate (Kayexalate) 30 gm ONCE ONCE PO ; Start 05/10/16 at 11:30; Stop 05/10/16 at 11:31 MURRAY HOLLINGSWORTH May 10, 2016 11:41
--- NOTE | 2016-05-10 11:53 | CONS ---
DATE OF ADMISSION: 05/09/2016 DATE OF CONSULTATION: 05/10/2016 TYPE OF CONSULTATION: Pulmonary REASON FOR CONSULTATION: Ventilator management. Thank you, Dr. Cervantes, for this consultation. HISTORY OF PRESENT ILLNESS: This is a 60-year-old gentleman with history of advanced metastatic can cer treated by Dr. Waller who came in with increasing abdominal distention, lethargy, shortness of b reath, orthopnea, PND nonbilious vomiting and subsequently had respiratory distress requiring emerge nt intubation with elevated lactic acid and evidence of metabolic acidosis with acute renal failure. Few further details are available. PAST MEDICAL HISTORY: As above. MEDICATIONS: Per chart. ALLERGIES: NONE. SOCIAL HISTORY: Nonsmoker, no alcohol, no history of drug use. FAMILY HISTORY: Noncontributory. SYSTEMS REVIEW: A 12-point review of systems unable to perform. PHYSICAL EXAMINATION: GENERAL: Chronically ill appearing gentleman, sedated on mechanical ventilation, appears comfortabl e at rest. VITAL SIGNS: Temperature 98, pulse is 76, blood pressure 95/54, O2 saturation 96% on FIO2 of 40%. NECK: Supple. No JVD or lymphadenopathy. CARDIAC: S1, S2, no added sounds or murmurs. CHEST: Diminished air entry both lung bases. ABDOMEN: Distended but nontender. No guarding or rebound. Diminished bowel sounds. EXTREMITIES: No cyanosis, clubbing, 2+ edema. NEUROLOGIC: Generalized weakness. LABORATORY DATA: White count initially 20.6, now 12.5, hemoglobin 10.1, platelets of 75. Potassium 6.1, now 5.8, BUN 51, creatinine 1.91. Lactic acid was 20.9. AST 2563, ALT 505, alkaline phosphat ase 329. Arterial blood gas pH 7.05, pCO2 of 29, pO2 168, bicarbonate was 8. DIAGNOSTIC DATA: Chest x-ray shows low lung volumes. 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 IMPRESSION AND PLAN: 1. Severe sepsis. 2. Possible abdominal source with bacterial peritonitis. 3. Acute renal failure. 4. Severe metabolic acidosis. 5. Respiratory failure. 6. Advanced metastatic prostate cancer. 7. Questionable subdural hematoma. The patient will require: 1. Emergent correction of metabolic acidosis. 2. Aggressive volume resuscitation. 3. Ultrasound of abdomen to exclude hydronephrosis. 4. Renal consult. 5. DVT and GI prophylaxis. Overall prognosis is guarded. Consider palliative care consult. Dictated By: JOSE WILLINGHAM/GHASSAN Conf#: [id number] DID#: [id number]
--- NOTE | 2016-05-10 12:37 | PN ---
DATE: 05/10/2016 INFECTIOUS DISEASE PROGRESS NOTE SUBJECTIVE: The patient remains intubated, sedated, looks comfortable. He is afebrile. Temperatur e is 97.8, pulse 76, respirations 24, blood pressure 95/54, saturations 99 on the vent. WBC 12.5, H and H 10.1 and 30.9, platelets 75. Neutrophils 46, bands 15, lymphs 21, BUN 52, creatinine 1.91. MICROBIOLOGY: The urine culture preliminary is negative. DIAGNOSTICS: Chest x-ray this morning revealed hyperinflation. Lungs with bibasilar atelectasis wi th diffuse osteoblastic metastatic disease. INDWELLINGS: Right chest Port-A-Cath and right IJ triple lumen catheter placed on this admission. Also endotracheal tube, NG tube and Rodríguez. DIAGNOSTICS: MRI of thoracic spine revealed extensive prostate cancer metastasis, with a questionab le T7-9 extension of tumor. No definite compression. MRI of the lumber spine revealed a bulging di sk at L3-4, with severe spinal stenosis and also metastatic prostate cancer. Cervical spine MRI abhijeet wed extensive marrow replacement and metastatic disease, most pronounced involving C2, 4, 5, 6, T1 a nd T3 vertebral bodies. CT of the brain revealed 3-mm subacute right frontal and temporal subdural hematoma, suggestive of d iffuse mixed density predominantly osteoblastic metastatic disease from prostate carcinoma. ANTIMICROBIALS: The patient is on IV vancomycin and imipenem. PHYSICAL EXAMINATION: GENERAL: This is a well-developed, elderly man, who is lying comfortably in bed. The patient is se dated. HEENT: Head atraumatic, normocephalic. Sclerae anicteric. Buccal mucosa dry. NECK: Supple, trachea midline. CHEST: Chest rise is symmetrical. Breath sounds diminished to the bases. HEART: S1, S2. ABDOMEN: Distended, soft. Bowel tones hypoactive. EXTREMITIES: Without cyanosis. ASSESSMENT: 1. Sepsis, with acute respiratory failure, hypothermia and leukocytosis with bandemia on admission. 2. Distended abdomen. Rule out SBP, rule out obstruction versus others. 3. Metastatic prostate CA, with metastases to brain and spine. 4. Acute renal failure. 5. Subdural hematoma. 6. Anemia. PLAN: The patient is covered with broad-spectrum antibiotics, pending final cultures. He is being seen by multiple consultants. We are going to order an abdominal ultrasound to evaluate for ascites and for possible paracentesis if advisable. Continue the present care. Follow recommendations of consultants. Overall prognosis is guarded. Dictated By: TRAY BLANCO FRONT DESK COORDINATOR for LEV العراقي/GHASSAN Conf#: [id number] DID#: [id number]
--- NOTE | 2016-05-10 13:16 | CONS ---
DATE OF ADMISSION: 05/09/2016 DATE OF CONSULTATION: TYPE OF CONSULTATION: Pulmonary. Thank you very much for allowing me to evaluate this 60-year-old male admitted through the ER with w eakness, acute renal insufficiency, metabolic acidosis and known prostate cancer. HISTORICAL EVENTS: As you well know, this patient has well advanced metastatic prostate cancer and was initially evaluated at [facility] ER on 05/06/2016 with a chief complaint of weakness. At that time, he did have a CAT scan of the abdomen that revealed a significant retroperitoneal pietro nopathy, an irregular enlarged prostate and ascites. Renal function was abnormal with a creatinine of 1.61, BUN 47, sodium 130, potassium 5.7, chloride 8 9, CO2 18, hematocrit 32.7, white count 6800, platelet count 144,000. Urinalysis was normal. He was sent home, saw his oncologist and was again told to again return to the emergency room and it was noted at that time that he had a severe metabolic acidosis, hyperkalemia and worsening renal fu nction. Because of the latter, he was ultimately admitted to the hospital. He is presently intubat ed and cannot provide me with any additional historical events. PAST MEDICAL HISTORY: Discussion with the patient's daughter reveals no history of liver disease, e xcessive alcohol intake, hypertension, stroke or coronary disease. PHYSICAL EXAMINATION: VITAL SIGNS: BP 95/54, respirations 24, pulse 76. He was intubated. NECK: Revealed no JVD. LUNGS: Reduced breath sounds. HEART: Rhythm regular. ABDOMEN: Distended, dullness involving both flanks. Liver and spleen were not enlarged. EXTREMITIES: Flanks revealed 1+ edema, pretibial area revealed 1+ edema. LABORATORY AND DIAGNOSTIC STUDIES: Hematocrit was 37.8 on 05/09/2016, this morning 30.9. White cou nt 20,600 on the 4th, 12,000 on the 5th. Platelet count 75,000. There were significant bands, 15% noted today, 6% noted on the 4th. Chemistries: Sodium 132, K 5.8, chloride 90, CO2 7, BUN 47, creatinine 1.78. Lactic acid was marke dly elevated. Albumin 3.1. Liver tests were abnormal with creatinine increasing to 2.2 and present ly 1.91. IMPRESSION: 1. Acute renal failure secondary to likely sepsis and prerenal component related to third spacing, secondary to metastatic intra-abdominal metastases. 2. Hyperkalemia secondary to lactic acidosis being aggressively treated. 3. Lactic acidosis either related to sepsis or overwhelming metastatic cancer. PLAN: At this point, will be following his potassium with you. He is receiving high rate sodium bi carbonate solution. Urinary chems will be obtained to sort out whether there is a significant prere nal component at this point. Consider a hematology evaluation for possible DIC given prolonged prot lindsey, PTT and reduction of platelet count. Dictated By: JOEY CANTOR MD MR/NTS Conf#: [id number] DID#: [id number] CC: MURRAY HOLLINGSWORTH;*EndCC*
[2016-05-10 15:12] LABS: AADO2 Arterial 122.9 mmHg (7.0-24.0); Allen Test ACCEPTAB; Arterial Base Excess -11.7 mmol/L (-3.0-3); Arterial COHb 0.3 % (0.0-3.0); Arterial Fraction of Oxyhgb 97.2 % (93.0-99.0); Arterial HCO3 12.9 mmol/L (22.0-26.0); Arterial MetHb 0.3 % (0.0-1.5); Arterial Total Hemglobin 11.6 g/dl (12.0-18.0); Blood Gas Low PEEP Setting 0 cmH2O; MODE VENT - AC
--- NOTE | 2016-05-10 15:13 | CONS ---
Date/Time of Note Date/Time of Note DATE: 05/10/16 TIME: 14:49 Assessment/Plan Assessment/Plan Chief Complaint/Hosp Course The patient is a 60 year old male treated by Dr. César Barnes with metastatic prostate cancer, GS 10, with diffuse osseous mets and diffuse LAD, diagnosed 2015 previously on hormonal therapy and taxotere/carboplatin/avastin then xtandi with progression, and now was planning on being switched to cabazitaxel due to progression of disease, but presents with lethargy, decreased PO intake, back and abdominal pain, weakness and increased abdominal distention for the past week. The patient was found to be septic with acute respiratory failure, hypothermia, with leukocytosis and bandemia and lactic acidosis, metabolic acidosis with respiratory compensation, acute renal failure, hyperkalemia, acute/subacute subdural hematomas, elevated liver enzymes with elevated ammonia level (query shock liver, CT scan from 05/06/16 shows no liver mets), and thrombocytopenia. Patient is intubated and sedated, without pressors, on broad spectrum antibiotics. - MRI spine 05/09/16 showed diffuse, heterogeneous decreased marrow signal consistent with extensive prostate cancer metastases but no abnormal epidural enhancement to suggest extraosseous tumor extension. - CT head 05/09/16 Approximate 3 mm thick subacute right frontal and temporal subdural hematoma. There is also appearance of approximate 2 mm thick upper left frontal acute subdural hematoma. There is also appearance of approximate 2 mm thick upper left parietal acute extra-axial likely subdural hematoma. 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 Appreciate neurosurgery recs. - Plan for paracentesis, rule out SBP, please send for cytology - Case discussed with his primary oncologist Dr. Barnes. Plan for supportive care, then plan to initiate cabazitaxel if patient recovers. Prognosis guarded. - Palliative care team on board. Plan for family meeting tomorrow afternoon. Case discussed with Dr. Barnes. - Thrombocytopenia likely due to sepsis and/or DIC, possible contribution from vancomycin, also likely bone marrow involvement from malignancy with myelocytes and metamyelocytes on smear and evidence of bone marrow replacement on MRI. I have ordered a DIC panel and smear review by pathology. - Coagulopathy may be related to DIC vs. liver failure - Please give cryo if fibrinogen < 150, would also recommend platelet transfusion if platelet < 100 at the discretion of neurosurgery given SDH Will continue to follow. Problems: Consultation Date/Type/Reason Admit Date/Time May 09, 2016 at 14:52 Initial Consult Date 05/09/16 Type of Consultation: Hematology/Oncology 24 HR Interval Summary Free Text/Dictation Patient intubated and sedated. Exam/Review of Systems Vital Signs Vitals Vital Signs Date Time Temp Pulse Resp B/P Pulse Ox O2 Delivery O2 Flow Rate FiO2 05/10/16 12:30 79 24 97/54 99 05/10/16 12:00 95.5 Mechanical Ventilator 05/10/16 11:40 40 Exam Constitutional: other (intubated, sedated) Head: normocephalic Eyes: nl conjunctiva Neck: non-tender, supple Respiratory: clear to auscultation Cardiovascular: regular rate and rhythm Gastrointestinal: ascites, non-tender, soft Musculoskeletal: nl extremities to inspection Results Result Diagram: 05/10/16 0528 05/10/16 0955 Results 24 hrs Laboratory Tests Test 05/09/16 16:45 05/09/16 17:40 05/09/16 19:05 05/09/16 19:57 Activated Partial Thromboplast Time 37.9 H INR International Normalized Ratio 2.26 Prothrombin Time 25.2 H Prothrombin Time Ratio 2.0 Lactic Acid Level > 24.0 *H > 24.0 *H Urine Amorphous Urates MODERATE Urine Bacteria FEW Urine Bilirubin 1+ H Urine Clarity SL HAZY Urine Color DK. YELLOW Urine Glucose NEGATIVE Urine Hemoglobin 1+ H Urine Ictotest NEGATIVE Urine Ketones NEGATIVE Urine Leukocyte Esterase NEGATIVE Urine Microscopic RBC 2-5 Urine Microscopic WBC NONE SEEN Urine Nitrite NEGATIVE Urine Specific [place] >=1.030 H Urine Squamous Epithelial Cells RARE Urine Total Protein NEGATIVE Urine Urobilinogen 2.0 E.U./dL H Urine pH 5.0 Test 05/09/16 19:58 05/09/16 20:05 05/09/16 20:26 05/09/16 21:49 Arterial Blood HCO3 4.2 *L 8.0 *L Arterial Blood Base Excess -24.7 L -21.0 L Arterial Blood Oxygen Saturation 96.2 97.9 Bhupendra Test ACCEPTAB ACCEPTAB Arterial Blood Gas Puncture Site Right Radial Left Radial Arterial Blood Carboxyhemoglobin 0.3 0.3 Arterial Blood Date Drawn 05/09/2016 8:08:22 PM 05/09/2016 9:35:05 PM Arterial Blood Methemoglobin 0.4 0.5 Arterial Blood pCO2 (Temp correct) 15.9 L 29.3 L Arterial Blood pH (Temp corrected) 7.036 *L 7.054 *L Arterial Blood pO2 (Temp corrected) 116.7 H 168.9 H Blood Gas A-a O2 Differential 14.0 82.6 H Blood Gas Critical Value Read Back Chucky CRAIG MD, K MD Blood Gas Modality ROOM AIR VENT - AC Blood Gas Notified Time 05/09/2016 8:21:20 PM 05/09/2016 9:46:16 PM Blood Gas Notified Whom AA AA Blood Gas Specimen Source Blood arterial Blood arterial Blood Gas Temperature 37.0 37.0 FiO2 21.0 40.0 Oxyhemoglobin Percent 95.5 97.1 Total Hemoglobin 10.9 L 10.1 L Ammonia 145 H Blood Gas Actual Respiration Rate 22 Blood Gas Inspiratory Pressure 15.0 Blood Gas Low PEEP Setting 0 Blood Gas Respiration Rate 22.0 Blood Gas Tidal Volume 500.0 Anion Gap 38 H Blood Urea Nitrogen 50 H Calcium Level 9.3 Carbon Dioxide Level 9 *L Chloride Level 96 L Creatinine 2.20 H Glucose Level 105 Lactic Acid Level > 24.0 *H Potassium Level 6.4 *H Sodium Level 137 Test 05/09/16 22:59 05/10/16 00:19 05/10/16 05:20 05/10/16 05:28 Bedside Glucose 126 Lactic Acid Level 23.1 *H 20.9 *H Alanine Aminotransferase (ALT/SGPT) 505 H Albumin 2.3 L Alkaline Phosphatase 329 H Anion Gap 35 H Anisocytosis 2+ Aspartate Amino Transf (AST/SGOT) 2563 H Band Neutrophils % 15.0 H Basophils # Basophils % Blood Morphology Comment Blood Urea Nitrogen 52 H Calcium Level 9.1 Carbon Dioxide Level 10 L Chloride Level 99 Cholesterol Level 85 L Cholesterol/HDL Ratio 9.4 Creatinine 1.91 H Differential Comment MANUAL DIFF Direct Bilirubin 2.10 H Eosinophils # 0.3 Eosinophils % 2.0 Giant Platelets RARE Glucose Level 149 # HDL Cholesterol 9 L Hematocrit 30.9 L Hemoglobin 10.1 L Hemoglobin A1c 5.5 Indirect Bilirubin 0.7 LDL Cholesterol, Calculated 31 Large Platelets OCCASIONAL Lymphocytes # 2.6 Lymphocytes % 21.0 Magnesium Level 2.5 Mean Corpuscular Hemoglobin 29.5 Mean Corpuscular Hemoglobin Concent 32.8 Mean Corpuscular Volume 90.0 Mean Platelet Volume 7.7 Metamyelocytes # 0.4 Metamyelocytes % 3.0 H Monocytes # 1.1 H Monocytes % 9.0 Myelocytes # 0.3 Myelocytes % 2.0 H Neutrophils # 5.8 Neutrophils % 46.0 Nucleated Red Blood Cells # Nucleated Red Blood Cells % 11.0 H Phosphorus Level 7.8 H Platelet Count 75 #L Platelet Estimate PLT APPEAR DECREASED Polychromasia RARE Potassium Level 6.1 *H Promyelocytes # 0.3 Promyelocytes % 2.0 H Red Blood Count 3.44 L Red Cell Distribution Width 22.8 H Sodium Level 138 Thyroid Stimulating Hormone (TSH) 0.177 L Total Bilirubin 2.8 H Total Protein 5.5 #L Triglycerides Level 226 H White Blood Count 12.5 #H Test 05/10/16 09:55 05/10/16 11:00 05/10/16 11:58 Potassium Level 5.8 H Arterial Blood HCO3 14.3 L Arterial Blood Base Excess -9.4 L Arterial Blood Oxygen Saturation 97.5 Bhupendra Test ACCEPTAB Arterial Blood Gas Puncture Site Right Radial Arterial Blood Carboxyhemoglobin 0.3 Arterial Blood Date Drawn 05/10/2016 11:02:19 AM Arterial Blood Methemoglobin 0.2 Arterial Blood pCO2 (Temp correct) 25.1 L Arterial Blood pH (Temp corrected) 7.375 Arterial Blood pO2 (Temp corrected) 114.2 H Blood Gas A-a O2 Differential 142.1 H Blood Gas Actual Respiration Rate 24 Blood Gas Low PEEP Setting 0 Blood Gas Modality VENT - AC Blood Gas Notified Time 05/10/2016 11:24:16 AM Blood Gas Notified Whom JLD Blood Gas Respiration Rate 24.0 Blood Gas Specimen Source Blood arterial Blood Gas Temperature 37.0 Blood Gas Tidal Volume 500.0 FiO2 40.0 Oxyhemoglobin Percent 97.0 Total Hemoglobin 10.6 L Lactic Acid Level 17.9 *H Medications Medications Current Medications Ondansetron HCl (Zofran Inj) 4 mg Q6H PRN IV NAUSEA AND/OR VOMITING; Start 05/09 at 16:30 Acetaminophen (Tylenol Tab) 650 mg Q6H PRN PO PAIN LEVEL 1-3 OR FEVER; Start at 16:30 Acetaminophen/ Hydrocodone Bitart ([place] (5/325)) 1 tab Q6H PRN PO MODERATE PAIN LEVEL 4-6; Start 05/09/16 at 16:30 Morphine Sulfate (morphine) 2 mg Q4H PRN IV SEVERE PAIN LEVEL 7-10; Start at 16:30 Docusate Sodium (Colace) 100 mg Q12H PRN PO CONSTIPATION; Start 05/09/16 at 16: 30 Magnesium Hydroxide (Milk Of Mag) 30 ml DAILY PRN PO CONSTIPATION; Start at 16:30 Sodium Biphosphate/ Sodium Phosphate (Fleet Enema) 133 ml DAILY PRN [place] CONSTIPATION; Start 05/09/16 at 16:30 Pantoprazole (Protonix Iv) 40 mg DAILY@06 IV Last administered on 05/10/16 08: 24; Admin Dose 40 MG; Start 05/10/16 at 06:00 Lorazepam (Ativan) 0.5 mg Q6H PRN IV ANXIETY; Start 05/09/16 at 16:30 Vancomycin HCl (Vanco Iv Per Pharmacy) VANCOMYCIN PER PHARMACY NOTE XX ; Start 05/09/16 at 16:30 Hydralazine HCl (Apresoline) 10 mg Q6H PRN IV ELEVATED BLOOD PRESSURE; Start at 16:30 Nitroglycerin (Nitroglycerin (Sl Tab) 0.4 Mg) 1 tab Q5M PRN SL ANGINA; Start at 16:30 Cholecalciferol (Vitamin D) 1,000 unit DAILY PO Last administered on 05/10/16 09:27; Admin Dose 1,000 UNIT; Start 05/10/16 at 09:00 Finasteride 5 mg 5 mg DAILY PO Last administered on 05/10/16 09:27; Admin Dose 5 MG; Start 05/10/16 at 09:00 Imipenem/ Cilastatin Sodium (Primaxin 500 Mg/ 100 ml (Pmx)) 100 ml @ 100 mls/ hr Q8 IVPB Last administered on 05/10/16 13:47; Admin Dose 100 MLS/HR; Start at 16:30 Hydromorphone HCl (Dilaudid) 2 mg Q3H PRN IV SEVERE PAIN LEVEL 7-10; Start 05/09 at 22:30 Lactulose 15 gm 15 gm Q6 NGT Last administered on 05/10/16 11:32; Admin Dose 15 GM; Start 05/10/16 at 12:00 Sodium Bicarbonate 150 meq/Dextrose 1,150 ml @ 100 mls/hr [id number] IV Last administered on 05/10/16t 11:26; Admin Dose 100 MLS/HR; Start 05/10/16 at 10:00 Vancomycin HCl/ Sodium Chloride (Vancocin/NS) 150 ml @ 75 mls/hr Q24H IVPB ; Start 05/10/16 at 20:00 MARY KATE PAGAN MD May 10, 2016 15:03
[2016-05-10 15:14] LABS: PLATELET COUNT 59 10^3/UL (140-440)
[2016-05-10 15:27] LABS: POTASSIUM 5.1 mmol/L (3.5-5.1)
[2016-05-10 15:31] LABS: CALCIUM 8.9 mg/dl (8.4-10.2)
[2016-05-10 15:51] LABS: LH ANALYZER COMMENTS 1
[2016-05-10 15:51] LABS: INR 2.81; PT RATIO 2.3
[2016-05-10 15:52] LABS: PARTIAL THROMBOPLASTIN TIME 41.8 Sec (25.0-35.0); THROMBIN TIME 23.3 SEC (13.8-19.1)
--- NOTE | 2016-05-10 16:36 | RADRPT ---
PROCEDURE: US Abdomen and Retroperitoneum. CLINICAL INDICATION: Elevated liver function tests. Renal dysfunction. TECHNIQUE: Multiple real-time longitudinal and transverse images were acquired of the patient's ab domen and retroperitoneum utilizing a curved array transducer. COMPARISON: No prior studies are available for comparison. FINDINGS: The liver is enlarged and diffusely heterogeneous. The liver has a mildly nodular surface. There is no focal hepatic lesion. Color Doppler and pulsed Doppler sonography demonstrate no definite flow i n the portal vein. The gallbladder is contracted with thickening of the wall measuring 6.7 mm. There are no gallstones in the gallbladder. The bile ducts are normal with the common bile duct measuring 5.3 mm in diameter. The spleen is borderline enlarged. There is no focal splenic lesion. The pancreas is partially seen and is unremarkable. There is moderate ascites. The right kidney measures 10.3 cm and the left kidney measures 11.2 cm. There is no renal mass. There is no hydronephrosis or calculus. The abdominal aorta is not dilated. The inferior vena cava is unremarkable. IMPRESSION: 1. Mild hepatomegaly. Diffusely heterogeneous liver and mildly nodular surface of liver which may indicate an infiltrative process or cirrhosis. 2. Contracted gallbladder with thickening of the wall. No gallstones or evidence of cholecystitis. 3. Borderline splenomegaly. 4. Moderate ascites. 5. Possible portal vein thrombosis. 6. Otherwise unremarkable study. RPTAT: QQ .Terrell aL MD, Date Time Electronically viewed and signed by .Terrell La MD, MD on 05/10/2016 16:36 .R/
[2016-05-10] MEDS ORDERED: NA BICARBONATE 8.4% 50 ML SYG IV ONE (17:00)
[2016-05-10 17:10] LABS: D-DIMER > 10000.00 ng/ml (<460)
[2016-05-10] MEDS ORDERED: SOD CHLORIDE 0.9% 250 ML IV* ONE (17:16)
[2016-05-10 17:50] LABS: FIBRIN SPLIT PRODUCT >80 and <160 ug/ml (<10)
[2016-05-10] MEDS: PHYTONADIONE 5 MG TAB NGT SCH (18:21)
[2016-05-10 18:25] LABS: INR 3.02; PARTIAL THROMBOPLASTIN TIME 40.7 Sec (25.0-35.0); PROTIME 31.7 Sec (12.2-14.2); PT RATIO 2.5; THROMBIN TIME 23.8 SEC (13.8-19.1)
[2016-05-10] MEDS: PROPOFOL 100 ML IV SCH (18:58)
[2016-05-10] MEDS: DOPamine-D5W 1.6 MG/ML 250 ML IV SCH (19:06)
[2016-05-10] MEDS ORDERED: VANCOMYCIN 750 MG in SOD CHLORIDE 0.9% 150 ML IVPB SCH (20:00)
--- NOTE | 2016-05-10 20:25 | CONS ---
DATE OF ADMISSION: 05/09/2016 DATE OF CONSULTATION: 05/10/2016 INDICATION FOR CONSULTATION: Subdural hematoma. HISTORY OF PRESENT ILLNESS: The patient is a 60-year-old male with a history of prostate cancer diagnosed in September 2004, currently taking oral chemotherapy. The patient was brought to the hospital by his daughters after reportedly complaining of nausea, abdominal distention and pain. The family states these symptoms have been going on for the past week, but this became significantly worse and painful yesterday. The patient was brought to the ER and there the patient reportedly became less responsive and was ultimately intubated. A CT scan of the head was performed, which was interpreted to show subdural hematomas. These were reported 2 to 3 mm bilaterally, on the right greater than left, but there was no mass effect, shift, intraventricular bleed, edema or other evidence of bleeding in the brain. The patient was noted to have platelets of 130, but abnormal coagulation panel with an INR of 2.26 and aPTT of 27.9. The patient is in the ICU, intubated, sedated and unable to give further history. History was obtained from the patient's daughters. Prior to this, the patient did not report any fevers or chills, but had been in some chronic pain. In addition, the patient had a CT scan of the cervical, thoracic and lumbar spine, apparently with the presumption that patient may have metastatic disease. This was proven to be the case with extensive diffuse marrow signal consistent with extensive prostate metastasis throughout T5, T7, T8 and T9, as well as some possible epidural extension at T7 and T9, though there is no significant mass effect or shift. The lumbar spine did show some stenosis from a disk bulge at L3-L4, causing relatively significant central canal, as well as severe right and moderate left lateral recess stenosis. There is no evidence of spondylolysis or spondylolisthesis. There is normal lordosis. There is also heterogeneous vertebral bodies consistent with diffuse metastatic prostate cancer, involving both the spinous process and the pedicles. Lastly, the patient had a CT of the cervical spine, which again, showed diffuse metastatic disease, but no significant canal stenosis. PAST MEDICAL HISTORY: Significant for prostate cancer. The patient is currently on chemotherapy. MEDICATIONS Include: 1. Zofran. 2. Calciferol. 3. Xtandi. 4. Megestrol. 5. Oxycodone. 6. Finasteride. 7. Tamsulosin. 8. Finasteride. 9. Revlimid. ALLERGIES: NO KNOWN DRUG ALLERGIES. SOCIAL HISTORY: History of alcohol usage, but nonsmoker. FAMILY HISTORY: No reported history of bleeding disorders or issues. PHYSICAL EXAMINATION VITAL SIGNS: Temperature 96.3, pulse 98, respirations 26, blood pressure 85/55 , saturating 98%. GENERAL: Patient is an elderly man, intubated, thin, lying in a hospital bed. HEENT: Normocephalic, atraumatic. CARDIAC: Regular rate and rhythm. LUNGS: Clear to auscultation. ABDOMEN: Nontender, nondistended, soft. EXTREMITIES: No clubbing, cyanosis, or edema. MUSCULOSKELETAL: No obvious deformities. NEUROLOGIC EXAMINATION: CONSTITUTIONAL: Intubated. He is sedated, but even off sedation, the patient will only open his eyes to noxious stimuli and move his upper extremities semipurposefully, as well slightly move his lower extremities. SENSATION: Unable to assess for sensation. REFLEXES: Hyporeflexic reflexes diffusely and no clonus, Babinski, Barreto sign or asterixis. CRANIAL NERVES: Pupils equal, round, reactive and conjugate. His face is symmetrical. He is breathing above the ventilator. LABORATORIES: Patient's most current, PT was 37.7 with an INR of 3 and an aPTT of 40.7, which has worsened The patient's white count has gone from 20,000 to 12.5. His platelet count also dropped from 132, currently 57,000. Patient's sodium 143. Initially, had a potassium of 6.5, currently, 5.1. BUN and creatinine were 59 and 2.0, with glucose of 106. REVIEW OF RADIOGRAPHIC REPORTS: I reviewed the radiograph reports, as indicated above. ASSESSMENT AND PLAN 1. A 60-year-old male with diffuse metastatic prostate cancer, with likely multisystem organ failure and tiny subdural hematomas. I discussed patient's clinical signs, symptoms, physical exam with the patient's family. Regarding the reason for the consultation, namely, the subdural hematomas, these are tiny subdural hematomas, if they are actually present. On the right side, there appears to be some extraaxial space which may or may not actually be a subdural hematoma. As well, on the left side, it may be that there is visualization of the sagittal sinus, but overall, I do not see a significant large compressive lesion or mass. With the presumption that these findings are subdural hematomas , I would simply recommend correction of the patient's coagulopathy to prevent potential progression of these subdurals. This would include platelet correction and correction of coagulopathy as best possible. It is unclear if these would progress, but in a coagulopathic state, this increases the likelihood that these subdurals, if present, could get bigger. 2. The patient also has a stenosis, fairly severe, at L3-L4, but this appears to be from a disk herniation, and the patient did not report any focal deficits prior to entering the hospital. The patient did have some urinary retention, which apparently, is a chronic issue from his benign prostatic hypertrophy and prostate cancer. I discussed with the patient's family that obvious the patient is currently in, appears to be, multisystem organ failure with decreased renal function, decreased liver function with consequent coagulopathy. The patient may also be sepsis given his initial white count. Overall, there is no indication for neurosurgical intervention for this patient , and his prognosis appears fairly poor. The subdural hematomas seen are nonoperative should generally dissipate with time, if the coagulopathy is corrected. Normalization of the coagulation status should be attempted as best possible to prevent future progression of these findings, but currently I do not believe the patient is symptomatic from these findings. Regarding the patient's metastatic disease, there is no evidence of fracture or significant canal stenosis, and if this does progressive, palliative radiation may be the best course of action, but I would not recommend any type of neurosurgical decompression or stabilization, given the diffuse nature and poor prognosis. Thank you for allowing me to participate in the care of this patient. Dictated By: MARINA HUIZAR MD, LG/GHASSAN Conf#: [id number] DID#: [id number] MIKAELA
[2016-05-10] MEDS: NORepinephrine 8MG/250 ML (PMX 250 ML IV SCH (21:30)
--- NOTE | 2016-05-10 23:50 | RADRPT ---
PROCEDURE: CT brain without contrast. CLINICAL INDICATION: Intracranial hemorrhage, follow-up. TECHNIQUE: CT of the brain was performed using a 3Touchpeed 64-slice VCT scann er. Contiguous axial images using 5-mm slice thickness were obtained from the skull base to the alejandro [place] without contrast. Coronal and sagittal reformatted images were also obtained. Images were review ed on a PACS workstation. Exam CTD/vol = 45.01 mGy. Total exam DLP = 720.23 mGy-cm. COMPARISON: 05/09/2016. FINDINGS: There is dural thickening versus tiny subdural hemorrhages along the right frontotemporal and left f rontoparietal lobes measuring up to 2 mm in thickness. The ventricles and cortical sulci are promin ent consistent with mild age related volume loss. There are patchy areas of low attenuation within the periventricular and subcortical white matter consistent with mild chronic ischemic changes secon avis to small vessel disease. There is no mass effect or midline shift. There is no intracranial h emorrhage or abnormal extra-axial collection. There are atherosclerotic calcifications within bilate ral distal internal carotid arteries. There is diffuse heterogeneous increase sclerosis of the calvarium. There is no evidence of fractur e. Visualized paranasal sinuses are clear. There are scattered opacified mastoid air cells bilater ally. IMPRESSION: Dural thickening versus tiny subdural hemorrhages along the right frontotemporal and left frontopari etal lobes, unchanged. There is no significant mass effect or midline shift. Mild age related volume loss and chronic ischemic white matter disease. Cerebral atherosclerosis. Diffuse, heterogeneous increase sclerosis of the calvarium suggestive of metastatic disease. Bilateral mastoid disease. .Evelio Calderon MD, MD Date Time Electronically viewed and signed by .Evelio Calderon MD, MD on 05/10/2016 23:50 .T/
[2016-05-11] VITALS (98 sets, daily range): BP systolic 43–178; BP diastolic 25–121; PULSE 0–129; RESP 23–37
[2016-05-11] MEDS ORDERED: PHENYLephrine 20MG IN 250 ML 250 ML IV SCH (00:09)
[2016-05-11] MEDS: LACTULOSE 30ML CUP NGT SCH ×4 (01:02→18:29)
[2016-05-11 01:24] LABS: PARTIAL THROMBOPLASTIN TIME 41.5 Sec (25.0-35.0); THROMBIN TIME 26.3 SEC (13.8-19.1)
[2016-05-11] MEDS: PHENYLephrine 40 MG in DEXTROSE 5% 496 ML IV SCH ×4 (02:02→14:43)
[2016-05-11 02:06] LABS: INR 2.6; PROTIME 28.2 Sec (12.2-14.2); PT RATIO 2.2
[2016-05-11] MEDS: SODIUM BICARBONATE (IV ADD) 150 MEQ in DEXTROSE 5% 1,000 ML IV SCH ×3 (03:27→21:31)
[2016-05-11 05:04] LABS: INR 3.02; PROTIME 31.7 Sec (12.2-14.2); PT RATIO 2.5
[2016-05-11 05:05] LABS: PARTIAL THROMBOPLASTIN TIME 43.9 Sec (25.0-35.0); THROMBIN TIME 32.3 SEC (13.8-19.1)
[2016-05-11 05:11] LABS: POTASSIUM 5.6 mmol/L (3.5-5.1)
[2016-05-11 05:14] LABS: CALCIUM 8.3 mg/dl (8.4-10.2)
[2016-05-11 05:32] LABS: CREATININE 3.04 mg/dl (0.61-1.24)
[2016-05-11] MEDS: PANTOPRAZOLE 40 MG INJ IV SCH (05:41)
[2016-05-11] MEDS: IMIPENEM-CILAST 500MG IV (PMX) 100 ML IVPB SCH (05:41)
[2016-05-11] MEDS ORDERED: DEXTROSE 50% 50 ML SYRINGE ONE (05:42)
[2016-05-11 05:50] LABS: ALBUMIN 2.4 g/dl (3.3-4.9)
[2016-05-11 05:53] LABS: ALKALINE PHOSPHATASE 670 IU/L (42-121); BILIRUBIN,INDIRECT 0.9 mg/dl (0-1.1); BILIRUBIN,TOTAL 4.6 mg/dl (0.2-1.3); TOTAL PROTEIN 5.5 g/dl (6.1-8.1)
[2016-05-11 05:59] LABS: HEMATOCRIT 30.1 % (42.0-52.0); HEMOGLOBIN 10.1 g/dl (14.0-18.0); MEAN CORPUSCULAR HEMOGLOBIN 30.6 pg (29.0-33.0); MEAN CORPUSCULAR HGB CONC 33.6 g/dl (32.0-37.0); MEAN PLATELET VOLUME 7.8 fl (7.4-10.4); PLATELET COUNT 97 10^3/UL (140-440); RED BLOOD COUNT 3.31 10^6/ul (4.70-6.10); RED CELL DISTRIBUTION WIDTH 23.5 % (11.5-14.5)
[2016-05-11] MEDS ORDERED: DEXTROSE 50% 50 ML SYRINGE IV ONE (06:00)
[2016-05-11] MEDS: DEXTROSE 10% 1,000 ML IV SCH ×2 (06:01→07:53)
[2016-05-11] MEDS: NORepinephrine 8MG/250 ML (PMX 250 ML IV SCH (06:01)
[2016-05-11 06:22] LABS: ALANINE AMINOTRANSFERASE 1581 IU/L (13-69)
[2016-05-11 06:53] LABS: CONDITION 1; LH ANALYZER COMMENTS 1; SUSPECT 1; UNCORRECTED WBC 19.2 10^3/ul (4.8-10.8); WHITE BLOOD COUNT 12.6 10^3/ul (4.8-10.8)
[2016-05-11] MEDS: PROPOFOL 100 ML IV SCH ×2 (07:00→17:20)
[2016-05-11 07:08] LABS: ASPARTATE AMINO TRANSFERASE > 7500 IU/L (15-46)
[2016-05-11] MEDS: VASOPRESSIN 60 UNIT in DEXTROSE 5% 57 ML IV SCH ×2 (07:52→17:17)
--- NOTE | 2016-05-11 07:55 | CONS ---
Date/Time of Note Date/Time of Note DATE: 05/11/16 TIME: 07:50 Assessment/Plan Assessment/Plan Additional Assessment/Plan 1. Acute renal failure sec to sepsis, 3rd spacing (low urine sodium) and now hypotension.He is not a dialysis candidate and favor early comfort care. 2. Persistent acidosis prob secondary to advanced metastatic cancer 3. Hyperkalemia sec to acidosis and oliguric renal failure, Kayexelate given and repeat K ordered. 4. Hypoglycemia noted, D10 ordered 5. Mild hypernatremia sec to bicarb given yesterday, will repeat labs later today. 6. Hematology and NS note rev Consultation Date/Type/Reason Admit Date/Time May 09, 2016 at 14:52 Initial Consult Date 05/09/16 Type of Consultation: Hematology/Oncology 24 HR Interval Summary Subjective hx not possible: other (Intubated, sedated and hypotensive) Exam/Review of Systems Vital Signs Vitals Vital Signs Date Time Temp Pulse Resp B/P Pulse Ox O2 Delivery O2 Flow Rate FiO2 05/11/16 05:18 105 26 97 50 05/11/16 04:30 83/44 Mechanical Ventilator 05/11/16 04:00 100.5 Intake and Output 05/10/16 05/10/16 05/11/16 15:00 23:00 07:00 Intake Total 747.68 ml 983.11 ml 1091.5 ml Output Total 190 ml 70 ml Balance 557.68 ml 913.11 ml 1091.5 ml Exam Neck: No jvd Respiratory: clear to auscultation, diminished breath sounds Cardiovascular: regular rate and rhythm Gastrointestinal: distended Extremities: edema (1+ pedal and sacral) Results Result Diagram: 05/11/16 0445 05/11/16 0445 Results 24 hrs Laboratory Tests Test 05/10/16 09:55 05/10/16 11:00 05/10/16 11:58 05/10/16 15:00 Potassium Level 5.8 H 5.1 Arterial Blood HCO3 14.3 L 12.9 L Arterial Blood Base Excess -9.4 L -11.7 L Arterial Blood Oxygen Saturation 97.5 97.8 Bhupendra Test ACCEPTAB ACCEPTAB Arterial Blood Gas Puncture Site Right Radial Left Radial Arterial Blood Carboxyhemoglobin 0.3 0.3 Arterial Blood Date Drawn 05/10/2016 11:02:19 AM 05/10/2016 3:02:32 PM Arterial Blood Methemoglobin 0.2 0.3 Arterial Blood pCO2 (Temp correct) 25.1 L 25.7 L Arterial Blood pH (Temp corrected) 7.375 7.317 L Arterial Blood pO2 (Temp corrected) 114.2 H 132.7 H Blood Gas A-a O2 Differential 142.1 H 122.9 H Blood Gas Actual Respiration Rate 24 27 Blood Gas Low PEEP Setting 0 0 Blood Gas Modality VENT - AC VENT - AC Blood Gas Notified Time 05/10/2016 11:24:16 AM 05/10/2016 3:12:15 PM Blood Gas Notified Whom JLD JLD Blood Gas Respiration Rate 24.0 24.0 Blood Gas Specimen Source Blood arterial Blood arterial Blood Gas Temperature 37.0 37.0 Blood Gas Tidal Volume 500.0 500.0 FiO2 40.0 40.0 Oxyhemoglobin Percent 97.0 97.2 Total Hemoglobin 10.6 L 11.6 L Lactic Acid Level 17.9 *H Activated Partial Thromboplast Time 41.8 H Anion Gap 31 H Blood Urea Nitrogen 59 H Calcium Level 8.9 Carbon Dioxide Level 17 L Chloride Level 100 Creatinine 2.00 H D-Dimer > 05131.00 H Fibrinogen 238.0 Glucose Level 106 # INR International Normalized Ratio 2.81 Plasma Fibrin Degradation Products >80 and <160 H Platelet Count 59 L Prothrombin Time 30.0 H Prothrombin Time Ratio 2.3 Sodium Level 143 Thrombin Time 23.3 H Test 05/10/16 17:55 05/10/16 18:00 05/10/16 20:07 05/11/16 00:55 Activated Partial Thromboplast Time 40.7 H 41.5 H INR International Normalized Ratio 3.02 2.60 Lactic Acid Level 20.9 *H > 24.0 *H Platelet Count 57 L 126 #L Prothrombin Time 31.7 H 28.2 H Prothrombin Time Ratio 2.5 2.2 Thrombin Time 23.8 H 26.3 H Urine Protein/Creatinine Ratio Urine Random Creatinine 107.40 Urine Random Sodium < 13 L Urine Total Protein Potassium Level 5.3 H Test 05/11/16 04:45 05/11/16 06:07 05/11/16 06:38 Activated Partial Thromboplast Time 43.9 H Alanine Aminotransferase (ALT/SGPT) 1581 H Albumin 2.4 L Alkaline Phosphatase 670 #H Ammonia 54 #H Anion Gap 41 #H Aspartate Amino Transf (AST/SGOT) > 7500 H Basophils # Blood Morphology Comment Blood Urea Nitrogen 67 H Calcium Level 8.3 L Carbon Dioxide Level 13 L Chloride Level 98 Creatinine 3.04 #H Direct Bilirubin 3.70 #H Eosinophils # Glucose Level 28 #*L Hematocrit 30.1 L Hemoglobin 10.1 L INR International Normalized Ratio 3.02 Indirect Bilirubin 0.9 Lactic Acid Level > 24.0 *H Lymphocytes # Mean Corpuscular Hemoglobin 30.6 Mean Corpuscular Hemoglobin Concent 33.6 Mean Corpuscular Volume 91.0 Mean Platelet Volume 7.8 Monocytes # Neutrophils # Platelet Count 97 #L Potassium Level 5.6 H Prothrombin Time 31.7 H Prothrombin Time Ratio 2.5 Red Blood Count 3.31 L Red Cell Distribution Width 23.5 H Sodium Level 146 H Thrombin Time 32.3 H Total Bilirubin 4.6 H Total Protein 5.5 L White Blood Count 12.6 H Bedside Glucose 106 99 Medications Medications Current Medications Ondansetron HCl (Zofran Inj) 4 mg Q6H PRN IV NAUSEA AND/OR VOMITING; Start 05/09 at 16:30 Acetaminophen (Tylenol Tab) 650 mg Q6H PRN PO PAIN LEVEL 1-3 OR FEVER; Start at 16:30 Acetaminophen/ Hydrocodone Bitart ([place] (5/325)) 1 tab Q6H PRN PO MODERATE PAIN LEVEL 4-6; Start 05/09/16 at 16:30 Morphine Sulfate (morphine) 2 mg Q4H PRN IV SEVERE PAIN LEVEL 7-10 Last administered on 05/10/16 22:34; Admin Dose 2 MG; Start 05/09/16 at 16:30 Docusate Sodium (Colace) 100 mg Q12H PRN PO CONSTIPATION; Start 05/09/16 at 16: 30 Magnesium Hydroxide (Milk Of Mag) 30 ml DAILY PRN PO CONSTIPATION; Start at 16:30 Sodium Biphosphate/ Sodium Phosphate (Fleet Enema) 133 ml DAILY PRN [place] CONSTIPATION; Start 05/09/16 at 16:30 Pantoprazole (Protonix Iv) 40 mg DAILY@06 IV Last administered on 05/11/16 05: 41; Admin Dose 40 MG; Start 05/10/16 at 06:00 Lorazepam (Ativan) 0.5 mg Q6H PRN IV ANXIETY; Start 05/09/16 at 16:30 Vancomycin HCl (Vanco Iv Per Pharmacy) VANCOMYCIN PER PHARMACY NOTE XX ; Start 05/09/16 at 16:30 Hydralazine HCl (Apresoline) 10 mg Q6H PRN IV ELEVATED BLOOD PRESSURE; Start at 16:30 Nitroglycerin (Nitroglycerin (Sl Tab) 0.4 Mg) 1 tab Q5M PRN SL ANGINA; Start at 16:30 Cholecalciferol (Vitamin D) 1,000 unit DAILY PO Last administered on 05/10/16 09:27; Admin Dose 1,000 UNIT; Start 05/10/16 at 09:00 Finasteride 5 mg 5 mg DAILY PO Last administered on 05/10/16 09:27; Admin Dose 5 MG; Start 05/10/16 at 09:00 Imipenem/ Cilastatin Sodium (Primaxin 500 Mg/ 100 ml (Pmx)) 100 ml @ 100 mls/ hr Q8 IVPB Last administered on 05/11/16 05:41; Admin Dose 100 MLS/HR; Start at 16:30 Hydromorphone HCl (Dilaudid) 2 mg Q3H PRN IV SEVERE PAIN LEVEL 7-10; Start 05/09 at 22:30 Lactulose 15 gm 15 gm Q6 NGT Last administered on 05/11/16 05:41; Admin Dose 15 GM; Start 05/10/16 at 12:00 Vancomycin HCl/ Sodium Chloride (Vancocin/NS) 150 ml @ 75 mls/hr Q24H IVPB Last administered on 05/10/16 20:55; Admin Dose 75 MLS/HR; Start 05/10/16 at 20: 00 Phytonadione 5 mg 5 mg DAILY NGT Last administered on 05/10/16 18:21; Admin Dose 5 MG; Start 05/10/16 at 17:30; Stop 05/15/16 at 08:59 Dopamine HCl/ Dextrose 250 ml @ 6.48 mls/hr TITRATE IV Last administered on 19:06; Admin Dose 6.48 MLS/HR; Start 05/10/16 at 19:00 Propofol 100 ml @ 2.592 mls/ hr Q12H IV Last administered on 05/10/16 18:58; Admin Dose 7.776 MLS/HR; Start 05/10/16 at 19:00 Norepinephrine 16 mg/Dextrose 500 ml @ 0 mls/hr TITRATE IV ; Start 05/11/16 at 07 :00 Phenylephrine HCl 40 mg/Dextrose 500 ml @ 75 mls/hr TITRATE IV Last administered on 05/11/16 06:59; Admin Dose 225 MLS/HR; Start 05/11/16 at 03:00 Dextrose 1,000 ml @ 50 mls/hr Q20H IV Last administered on 05/11/16 06:01; Admin Dose 50 MLS/HR; Start 05/11/16 at 06:00 Vasopressin 60 unit/Dextrose 60 ml @ 1.2 mls/hr Q12H IV ; Start 05/11/16 at 07: 00 Sodium Bicarbonate/ Dextrose (Na Bicarb/D5W) 1,100 ml @ 125 mls/hr Q8H48M IV ; Start 05/11/16 at 07:44; Status UNV Sodium Polystyrene Sulfonate (Kayexalate) 30 gm ONCE ONCE NGT ; Start 05/11/16 at 08:00; Stop 05/11/16 at 08:01; Status UNV JOEY CANTOR MD May 11, 2016 07:54
[2016-05-11] MEDS ORDERED: NA POLYST SULFON 15 GM/60 ML BTL NGT ONE (08:00)
[2016-05-11 08:06] LABS: AADO2 Arterial 254.4 mmHg (7.0-24.0); Arterial HCO3 8.3 mmol/L (22.0-26.0); Blood Gas Low PEEP Setting 0 cmH2O; MODE VENT - AC
--- NOTE | 2016-05-11 08:16 | RADRPT ---
PROCEDURE: XR Chest. CLINICAL INDICATION: Pneumonia. CHF. TECHNIQUE: Single portable view of the chest was obtained COMPARISON: Chest 05/10/2016 FINDINGS: The previous chest 05/10/2016 again noted is an endotracheal tube, nasogastric tube, right central venous catheter and right infusion port catheter unchanged in position. The patient has a poor ins piration. The heart is borderline enlarged. There is increased density at both lung bases more so t he left base which may all be due to atelectasis no aspiration or pneumonia particularly at the left base should be considered. The pulmonary vessels do not appear congested but they are poorly demon strated. The upper lungs are clear. No gross pleural effusions or pneumothorax. IMPRESSION: 1.. Previous chest 05/10/2016 there is increased density at both lung bases more so the left base w hich may all be due to atelectasis no aspiration or pneumonia particularly at the left base should b e considered. 2. No evidence congestive heart failure. RPTAT:AAJJ Physician Dixie Date Time Electronically viewed and signed by Physician Dixie on 05/11/2016 08:16 BM/
[2016-05-11] MEDS ORDERED: SODIUM BICARBONATE (IV ADD) 100 MEQ in DEXTROSE 5% 1,000 ML IV SCH (09:00)
[2016-05-11] MEDS: PHYTONADIONE 5 MG TAB NGT SCH (09:26)
[2016-05-11] MEDS: FINASTERIDE 5 MG TAB PO SCH (09:26)
[2016-05-11] MEDS ORDERED: PHENYLephrine 20MG IN 250 ML 250 ML ONE ×2 (09:28→13:13)
[2016-05-11 09:34] LABS: EOSINOPHILS # 0.6 10^3/ul (0.0-0.5); LYMPHOCYTES # 2.6 10^3/ul (0.8-2.9); MYELOCYTES # 0.3; POLYCHROMASIA 1+
[2016-05-11] MEDS: CHOLECALCIFEROL 1,000 UNIT TAB PO SCH (09:41)
--- NOTE | 2016-05-11 10:00 | CONS ---
Date/Time of Note Date/Time of Note DATE: 05/11/16 TIME: 09:54 Assessment/Plan Assessment/Plan Chief Complaint/Hosp Course Diffuse metastatic prostate CA with MSOF. Prognosis poor. CT interpretation by second radiologist of repeat CT more consistent with my observation- not clearly SDH, may be dural thickening or sinus. Has thrombocytopenia and coagulopathy from organ failure, correct as reasonable possible but patient's condition is probably terminal at this point and palliative care probably best option. No neurosurgical intervention indicated for this or potential spinal issues at this point. Will sign off, please reconsult if remarkable improvement occurs. Thank you for allowing me to participate in the care of this patient. Problems: Consultation Date/Type/Reason Admit Date/Time May 11, 2016 at 09:30 Initial Consult Date 05/09/16 Type of Consultation: Neurosurgery 24 HR Interval Summary Free Text/Dictation Patient sedated, unresponsive. Subjective hx not possible: pt non-verbal, pt critical status Exam/Review of Systems Vital Signs Vitals Vital Signs Date Time Temp Pulse Resp B/P Pulse Ox O2 Delivery O2 Flow Rate FiO2 05/11/16 08:00 112 26 75/44 95 05/11/16 07:30 Mechanical Ventilator 05/11/16 05:18 50 05/11/16 04:00 100.5 Intake and Output 05/10/16 05/10/16 05/11/16 15:00 23:00 07:00 Intake Total 747.68 ml 983.11 ml 1091.5 ml Output Total 190 ml 70 ml 0 ml Balance 557.68 ml 913.11 ml 1091.5 ml Exam Neurological: other, unresponsive (sedated, unresponsive.) Results CT head repeat: IMPRESSION: Dural thickening versus tiny subdural hemorrhages along the right frontotemporal and left frontoparietal lobes, unchanged. There is no significant mass effect or midline shift. Mild age related volume loss and chronic ischemic white matter disease. Cerebral atherosclerosis. Diffuse, heterogeneous increase sclerosis of the calvarium suggestive of metastatic disease. Bilateral mastoid disease. Result Diagram: 05/11/16 0445 05/11/16 0445 Results 24 hrs Laboratory Tests Test 05/10/16 09:55 05/10/16 11:00 05/10/16 11:58 05/10/16 15:00 Potassium Level 5.8 H 5.1 Arterial Blood HCO3 14.3 L 12.9 L Arterial Blood Base Excess -9.4 L -11.7 L Arterial Blood Oxygen Saturation 97.5 97.8 Bhupendra Test ACCEPTAB ACCEPTAB Arterial Blood Gas Puncture Site Right Radial Left Radial Arterial Blood Carboxyhemoglobin 0.3 0.3 Arterial Blood Date Drawn 05/10/2016 11:02:19 AM 05/10/2016 3:02:32 PM Arterial Blood Methemoglobin 0.2 0.3 Arterial Blood pCO2 (Temp correct) 25.1 L 25.7 L Arterial Blood pH (Temp corrected) 7.375 7.317 L Arterial Blood pO2 (Temp corrected) 114.2 H 132.7 H Blood Gas A-a O2 Differential 142.1 H 122.9 H Blood Gas Actual Respiration Rate 24 27 Blood Gas Low PEEP Setting 0 0 Blood Gas Modality VENT - AC VENT - AC Blood Gas Notified Time 05/10/2016 11:24:16 AM 05/10/2016 3:12:15 PM Blood Gas Notified Whom JLD JLD Blood Gas Respiration Rate 24.0 24.0 Blood Gas Specimen Source Blood arterial Blood arterial Blood Gas Temperature 37.0 37.0 Blood Gas Tidal Volume 500.0 500.0 FiO2 40.0 40.0 Oxyhemoglobin Percent 97.0 97.2 Total Hemoglobin 10.6 L 11.6 L Lactic Acid Level 17.9 *H Activated Partial Thromboplast Time 41.8 H Anion Gap 31 H Blood Urea Nitrogen 59 H Calcium Level 8.9 Carbon Dioxide Level 17 L Chloride Level 100 Creatinine 2.00 H D-Dimer > 30520.00 H Fibrinogen 238.0 Glucose Level 106 # INR International Normalized Ratio 2.81 Plasma Fibrin Degradation Products >80 and <160 H Platelet Count 59 L Prothrombin Time 30.0 H Prothrombin Time Ratio 2.3 Sodium Level 143 Thrombin Time 23.3 H Test 05/10/16 17:55 05/10/16 18:00 05/10/16 20:07 05/11/16 00:55 Activated Partial Thromboplast Time 40.7 H 41.5 H INR International Normalized Ratio 3.02 2.60 Lactic Acid Level 20.9 *H > 24.0 *H Platelet Count 57 L 126 #L Prothrombin Time 31.7 H 28.2 H Prothrombin Time Ratio 2.5 2.2 Thrombin Time 23.8 H 26.3 H Urine Protein/Creatinine Ratio Urine Random Creatinine 107.40 Urine Random Sodium < 13 L Urine Total Protein Potassium Level 5.3 H Test 05/11/16 04:45 05/11/16 06:07 05/11/16 06:38 05/11/16 07:00 Activated Partial Thromboplast Time 43.9 H Alanine Aminotransferase (ALT/SGPT) 1581 H Albumin 2.4 L Alkaline Phosphatase 670 #H Ammonia 54 #H Anion Gap 41 #H Aspartate Amino Transf (AST/SGOT) > 7500 H Band Neutrophils % 21.0 H Basophils # Blood Morphology Comment Blood Urea Nitrogen 67 H Calcium Level 8.3 L Carbon Dioxide Level 13 L Chloride Level 98 Creatinine 3.04 #H Differential Comment MANUAL DIFF Direct Bilirubin 3.70 #H Eosinophils # 0.6 H Eosinophils % 5.0 Glucose Level 28 #*L Hematocrit 30.1 L Hemoglobin 10.1 L INR International Normalized Ratio 3.02 Indirect Bilirubin 0.9 Lactic Acid Level > 24.0 *H Lymphocytes # 2.6 Lymphocytes % 21.0 Mean Corpuscular Hemoglobin 30.6 Mean Corpuscular Hemoglobin Concent 33.6 Mean Corpuscular Volume 91.0 Mean Platelet Volume 7.8 Metamyelocytes # 0.3 Metamyelocytes % 2.0 H Monocytes # 1.0 H Monocytes % 8.0 Myelocytes # 0.3 Myelocytes % 2.0 H Neutrophils # 5.0 Neutrophils % 40.0 Platelet Count 97 #L Polychromasia 1+ Potassium Level 5.6 H Promyelocytes # 0.1 Promyelocytes % 1.0 H Prothrombin Time 31.7 H Prothrombin Time Ratio 2.5 Red Blood Count 3.31 L Red Cell Distribution Width 23.5 H Sodium Level 146 H Thrombin Time 32.3 H Total Bilirubin 4.6 H Total Protein 5.5 L White Blood Count 12.6 H Bedside Glucose 106 99 Arterial Blood HCO3 8.3 *L Arterial Blood Base Excess -20.0 L Bhupendra Test N/A Arterial Blood Gas Puncture Site LB Arterial Blood Date Drawn 05/11/2016 7:20:00 AM Arterial Blood pCO2 (Temp correct) 27.6 L Arterial Blood pH (Temp corrected) 7.098 *L Arterial Blood pO2 (Temp corrected) 71.1 L Blood Gas A-a O2 Differential 254.4 H Blood Gas Actual Respiration Rate 27 Blood Gas Critical Value Read Back Y ALISON RN Blood Gas Low PEEP Setting 0 Blood Gas Modality VENT - AC Blood Gas Notified Time 05/11/2016 8:06:25 AM Blood Gas Notified Whom JLD Blood Gas Respiration Rate 24.0 Blood Gas Specimen Source Blood arterial Blood Gas Temperature 37.0 Blood Gas Tidal Volume 500.0 FiO2 50.0 Medications Medications Current Medications Ondansetron HCl (Zofran Inj) 4 mg Q6H PRN IV NAUSEA AND/OR VOMITING; Start 05/09 at 16:30 Acetaminophen (Tylenol Tab) 650 mg Q6H PRN PO PAIN LEVEL 1-3 OR FEVER; Start at 16:30 Acetaminophen/ Hydrocodone Bitart ([place] (5/325)) 1 tab Q6H PRN PO MODERATE PAIN LEVEL 4-6; Start 05/09/16 at 16:30 Morphine Sulfate (morphine) 2 mg Q4H PRN IV SEVERE PAIN LEVEL 7-10 Last administered on 05/10/16 22:34; Admin Dose 2 MG; Start 05/09/16 at 16:30 Docusate Sodium (Colace) 100 mg Q12H PRN PO CONSTIPATION; Start 05/09/16 at 16: 30 Magnesium Hydroxide (Milk Of Mag) 30 ml DAILY PRN PO CONSTIPATION; Start at 16:30 Sodium Biphosphate/ Sodium Phosphate (Fleet Enema) 133 ml DAILY PRN [place] CONSTIPATION; Start 05/09/16 at 16:30 Pantoprazole (Protonix Iv) 40 mg DAILY@06 IV Last administered on 05/11/16 05: 41; Admin Dose 40 MG; Start 05/10/16 at 06:00 Lorazepam (Ativan) 0.5 mg Q6H PRN IV ANXIETY; Start 05/09/16 at 16:30 Vancomycin HCl (Vanco Iv Per Pharmacy) VANCOMYCIN PER PHARMACY NOTE XX ; Start 05/09/16 at 16:30 Hydralazine HCl (Apresoline) 10 mg Q6H PRN IV ELEVATED BLOOD PRESSURE; Start at 16:30 Nitroglycerin (Nitroglycerin (Sl Tab) 0.4 Mg) 1 tab Q5M PRN SL ANGINA; Start at 16:30 Cholecalciferol (Vitamin D) 1,000 unit DAILY PO Last administered on 05/11/16 09:41; Admin Dose 1,000 UNIT; Start 05/10/16 at 09:00 Finasteride 5 mg 5 mg DAILY PO Last administered on 05/11/16 09:26; Admin Dose 5 MG; Start 05/10/16 at 09:00 Imipenem/ Cilastatin Sodium (Primaxin 500 Mg/ 100 ml (Pmx)) 100 ml @ 100 mls/ hr Q8 IVPB Last administered on 05/11/16 05:41; Admin Dose 100 MLS/HR; Start at 16:30 Hydromorphone HCl (Dilaudid) 2 mg Q3H PRN IV SEVERE PAIN LEVEL 7-10; Start 05/09 at 22:30 Lactulose 15 gm 15 gm Q6 NGT Last administered on 05/11/16 05:41; Admin Dose 15 GM; Start 05/10/16 at 12:00 Vancomycin HCl/ Sodium Chloride (Vancocin/NS) 150 ml @ 75 mls/hr Q24H IVPB Last administered on 05/10/16 20:55; Admin Dose 75 MLS/HR; Start 05/10/16 at 20: 00 Phytonadione 5 mg 5 mg DAILY NGT Last administered on 05/11/16 09:26; Admin Dose 5 MG; Start 05/10/16 at 17:30; Stop 05/15/16 at 08:59 Dopamine HCl/ Dextrose 250 ml @ 6.48 mls/hr TITRATE IV Last administered on 19:06; Admin Dose 6.48 MLS/HR; Start 05/10/16 at 19:00 Propofol 100 ml @ 2.592 mls/ hr Q12H IV Last administered on 05/10/16 18:58; Admin Dose 7.776 MLS/HR; Start 05/10/16 at 19:00 Norepinephrine 16 mg/Dextrose 500 ml @ 0 mls/hr TITRATE IV ; Start 05/11/16 at 07 :00 Phenylephrine HCl 40 mg/Dextrose 500 ml @ 75 mls/hr TITRATE IV Last administered on 05/11/16 06:59; Admin Dose 225 MLS/HR; Start 05/11/16 at 03:00 Dextrose 1,000 ml @ 50 mls/hr Q20H IV Last administered on 05/11/16 07:53; Admin Dose 50 MLS/HR; Start 05/11/16 at 06:00 Vasopressin 60 unit/Dextrose 60 ml @ 1.2 mls/hr Q12H IV Last administered on t 07:52; Admin Dose 1.2 MLS/HR; Start 05/11/16 at 07:00 Sodium Bicarbonate/ Dextrose (Na Bicarb/D5W) 1,100 ml @ 125 mls/hr Q8H48M IV ; Start 05/11/16 at 09:00 MARINA HUIZAR MD May 11, 2016 10:00
--- NOTE | 2016-05-11 10:41 | CONS ---
Date/Time of Note Date/Time of Note DATE: 05/11/16 TIME: 10:39 Consult Date/Type/Reason Admit Date/Time May 11, 2016 at 09:30 Initial Consult Date 05/09/16 Type of Consultation: pulmonary Subjective Patient remains intubated sedated on mechanical ventilation with multiple vasopressors Objective Vital Signs Date Time Temp Pulse Resp B/P Pulse Ox O2 Delivery O2 Flow Rate FiO2 05/11/16 08:00 112 26 75/44 95 05/11/16 07:30 Mechanical Ventilator 05/11/16 05:18 50 05/11/16 04:00 100.5 Intake and Output 05/10/16 05/10/16 05/11/16 15:00 23:00 07:00 Intake Total 747.68 ml 983.11 ml 1940.5 ml Output Total 190 ml 70 ml 5 ml Balance 557.68 ml 913.11 ml 1935.5 ml PHYSICAL EXAMINATION: GENERAL: Chronically ill appearing gentleman, sedated on mechanical ventilation , appears comfortable at rest. VITAL SIGNS: As above NECK: Supple. No JVD or lymphadenopathy. CARDIAC: S1, S2, no added sounds or murmurs. CHEST: Diminished air entry both lung bases. ABDOMEN: Distended but nontender. No guarding or rebound. Diminished bowel sounds. EXTREMITIES: No cyanosis, clubbing, 2+ edema. NEUROLOGIC: Generalized weakness. Results/Medications Result Diagram: 05/11/16 0445 05/11/16 0445 Results 24 hrs Laboratory Tests Test 05/10/16 11:00 05/10/16 11:58 05/10/16 15:00 05/10/16 17:55 Arterial Blood HCO3 14.3 L 12.9 L Arterial Blood Base Excess -9.4 L -11.7 L Arterial Blood Oxygen Saturation 97.5 97.8 Bhupendra Test ACCEPTAB ACCEPTAB Arterial Blood Gas Puncture Site Right Radial Left Radial Arterial Blood Carboxyhemoglobin 0.3 0.3 Arterial Blood Date Drawn 05/10/2016 11:02:19 AM 05/10/2016 3:02:32 PM Arterial Blood Methemoglobin 0.2 0.3 Arterial Blood pCO2 (Temp correct) 25.1 L 25.7 L Arterial Blood pH (Temp corrected) 7.375 7.317 L Arterial Blood pO2 (Temp corrected) 114.2 H 132.7 H Blood Gas A-a O2 Differential 142.1 H 122.9 H Blood Gas Actual Respiration Rate 24 27 Blood Gas Low PEEP Setting 0 0 Blood Gas Modality VENT - AC VENT - AC Blood Gas Notified Time 05/10/2016 11:24:16 AM 05/10/2016 3:12:15 PM Blood Gas Notified Whom JLD JLD Blood Gas Respiration Rate 24.0 24.0 Blood Gas Specimen Source Blood arterial Blood arterial Blood Gas Temperature 37.0 37.0 Blood Gas Tidal Volume 500.0 500.0 FiO2 40.0 40.0 Oxyhemoglobin Percent 97.0 97.2 Total Hemoglobin 10.6 L 11.6 L Lactic Acid Level 17.9 *H 20.9 *H Activated Partial Thromboplast Time 41.8 H 40.7 H Anion Gap 31 H Blood Urea Nitrogen 59 H Calcium Level 8.9 Carbon Dioxide Level 17 L Chloride Level 100 Creatinine 2.00 H D-Dimer > 32948.00 H Fibrinogen 238.0 Glucose Level 106 # INR International Normalized Ratio 2.81 3.02 Plasma Fibrin Degradation Products >80 and <160 H Platelet Count 59 L 57 L Potassium Level 5.1 Prothrombin Time 30.0 H 31.7 H Prothrombin Time Ratio 2.3 2.5 Sodium Level 143 Thrombin Time 23.3 H 23.8 H Test 05/10/16 18:00 05/10/16 20:07 05/11/16 00:55 05/11/16 04:45 Urine Protein/Creatinine Ratio Urine Random Creatinine 107.40 Urine Random Sodium < 13 L Urine Total Protein Potassium Level 5.3 H 5.6 H Activated Partial Thromboplast Time 41.5 H 43.9 H INR International Normalized Ratio 2.60 3.02 Lactic Acid Level > 24.0 *H > 24.0 *H Platelet Count 126 #L 97 #L Prothrombin Time 28.2 H 31.7 H Prothrombin Time Ratio 2.2 2.5 Thrombin Time 26.3 H 32.3 H Alanine Aminotransferase (ALT/SGPT) 1581 H Albumin 2.4 L Alkaline Phosphatase 670 #H Ammonia 54 #H Anion Gap 41 #H Aspartate Amino Transf (AST/SGOT) > 7500 H Band Neutrophils % 21.0 H Basophils # Blood Morphology Comment Blood Urea Nitrogen 67 H Calcium Level 8.3 L Carbon Dioxide Level 13 L Chloride Level 98 Creatinine 3.04 #H Differential Comment MANUAL DIFF Direct Bilirubin 3.70 #H Eosinophils # 0.6 H Eosinophils % 5.0 Glucose Level 28 #*L Hematocrit 30.1 L Hemoglobin 10.1 L Indirect Bilirubin 0.9 Lymphocytes # 2.6 Lymphocytes % 21.0 Mean Corpuscular Hemoglobin 30.6 Mean Corpuscular Hemoglobin Concent 33.6 Mean Corpuscular Volume 91.0 Mean Platelet Volume 7.8 Metamyelocytes # 0.3 Metamyelocytes % 2.0 H Monocytes # 1.0 H Monocytes % 8.0 Myelocytes # 0.3 Myelocytes % 2.0 H Neutrophils # 5.0 Neutrophils % 40.0 Polychromasia 1+ Promyelocytes # 0.1 Promyelocytes % 1.0 H Red Blood Count 3.31 L Red Cell Distribution Width 23.5 H Sodium Level 146 H Total Bilirubin 4.6 H Total Protein 5.5 L White Blood Count 12.6 H Test 05/11/16 06:07 05/11/16 06:38 05/11/16 07:00 Bedside Glucose 106 99 Arterial Blood HCO3 8.3 *L Arterial Blood Base Excess -20.0 L Bhupendra Test N/A Arterial Blood Gas Puncture Site LB Arterial Blood Date Drawn 05/11/2016 7:20:00 AM Arterial Blood pCO2 (Temp correct) 27.6 L Arterial Blood pH (Temp corrected) 7.098 *L Arterial Blood pO2 (Temp corrected) 71.1 L Blood Gas A-a O2 Differential 254.4 H Blood Gas Actual Respiration Rate 27 Blood Gas Critical Value Read Back Y ALISON RN Blood Gas Low PEEP Setting 0 Blood Gas Modality VENT - AC Blood Gas Notified Time 05/11/2016 8:06:25 AM Blood Gas Notified Whom JLD Blood Gas Respiration Rate 24.0 Blood Gas Specimen Source Blood arterial Blood Gas Temperature 37.0 Blood Gas Tidal Volume 500.0 FiO2 50.0 Medications Current Medications Ondansetron HCl (Zofran Inj) 4 mg Q6H PRN IV NAUSEA AND/OR VOMITING; Start 05/09 at 16:30 Acetaminophen (Tylenol Tab) 650 mg Q6H PRN PO PAIN LEVEL 1-3 OR FEVER; Start at 16:30 Acetaminophen/ Hydrocodone Bitart ([place] (5/325)) 1 tab Q6H PRN PO MODERATE PAIN LEVEL 4-6; Start 05/09/16 at 16:30 Morphine Sulfate (morphine) 2 mg Q4H PRN IV SEVERE PAIN LEVEL 7-10 Last administered on 05/10/16 22:34; Admin Dose 2 MG; Start 05/09/16 at 16:30 Docusate Sodium (Colace) 100 mg Q12H PRN PO CONSTIPATION; Start 05/09/16 at 16: 30 Magnesium Hydroxide (Milk Of Mag) 30 ml DAILY PRN PO CONSTIPATION; Start at 16:30 Sodium Biphosphate/ Sodium Phosphate (Fleet Enema) 133 ml DAILY PRN [place] CONSTIPATION; Start 05/09/16 at 16:30 Pantoprazole (Protonix Iv) 40 mg DAILY@06 IV Last administered on 05/11/16 05: 41; Admin Dose 40 MG; Start 05/10/16 at 06:00 Lorazepam (Ativan) 0.5 mg Q6H PRN IV ANXIETY; Start 05/09/16 at 16:30 Vancomycin HCl (Vanco Iv Per Pharmacy) VANCOMYCIN PER PHARMACY NOTE XX ; Start 05/09/16 at 16:30 Hydralazine HCl (Apresoline) 10 mg Q6H PRN IV ELEVATED BLOOD PRESSURE; Start at 16:30 Nitroglycerin (Nitroglycerin (Sl Tab) 0.4 Mg) 1 tab Q5M PRN SL ANGINA; Start at 16:30 Cholecalciferol (Vitamin D) 1,000 unit DAILY PO Last administered on 05/11/16 09:41; Admin Dose 1,000 UNIT; Start 05/10/16 at 09:00 Finasteride (Proscar) 5 mg DAILY PO Last administered on 05/11/16 09:26; Admin Dose 5 MG; Start 05/10/16 at 09:00 Hydromorphone HCl (Dilaudid) 2 mg Q3H PRN IV SEVERE PAIN LEVEL 7-10; Start 05/09 at 22:30 Lactulose 15 gm 15 gm Q6 NGT Last administered on 05/11/16 05:41; Admin Dose 15 GM; Start 05/10/16 at 12:00 Vancomycin HCl/ Sodium Chloride (Vancocin/NS) 150 ml @ 75 mls/hr Q24H IVPB Last administered on 05/10/16 20:55; Admin Dose 75 MLS/HR; Start 05/10/16 at 20: 00; Status Future Hold Phytonadione 5 mg 5 mg DAILY NGT Last administered on 05/11/16 09:26; Admin Dose 5 MG; Start 05/10/16 at 17:30; Stop 05/15/16 at 08:59 Dopamine HCl/ Dextrose 250 ml @ 6.48 mls/hr TITRATE IV Last administered on 19:06; Admin Dose 6.48 MLS/HR; Start 05/10/16 at 19:00 Propofol 100 ml @ 2.592 mls/ hr Q12H IV Last administered on 05/10/16 18:58; Admin Dose 7.776 MLS/HR; Start 05/10/16 at 19:00 Norepinephrine 16 mg/Dextrose 500 ml @ 0 mls/hr TITRATE IV ; Start 05/11/16 at 07 :00 Phenylephrine HCl 40 mg/Dextrose 500 ml @ 75 mls/hr TITRATE IV Last administered on 05/11/16 06:59; Admin Dose 225 MLS/HR; Start 05/11/16 at 03:00 Dextrose 1,000 ml @ 50 mls/hr Q20H IV Last administered on 05/11/16 07:53; Admin Dose 50 MLS/HR; Start 05/11/16 at 06:00 Vasopressin 60 unit/Dextrose 60 ml @ 1.2 mls/hr Q12H IV Last administered on 07:52; Admin Dose 1.2 MLS/HR; Start 05/11/16 at 07:00 Sodium Bicarbonate/ Dextrose (Na Bicarb/D5W) 1,100 ml @ 125 mls/hr Q8H48M IV ; Start 05/11/16 at 09:00 Miscellaneous Information RANDOM VANCO LEVEL... ONCE ONCE XX ; Start 05/12/16 at 05:00; Stop 05/12/16 at 05:01 Imipenem/ Cilastatin Sodium (Primaxin 250 Mg/ 100 ml (Pmx)) 100 ml @ 100 mls/ hr Q8 IVPB ; Start 05/11/16 at 14:00 Assessment/Plan Chief Complaint/Hosp Course IMPRESSION AND PLAN: 1. Severe septic shock. 2. Possible abdominal source with bacterial peritonitis. 3. Acute renal failure. 4. Severe metabolic acidosis. 5. Respiratory failure secondary to above 6. Advanced metastatic prostate cancer. 7. Evidence of subdural hematoma on CT brain The patient will require: 1. Continue bicarbonate correction of metabolic acidosis 2. Continue volume resuscitation 3. Renal recommendations 4. Neurosurgical recommendations: Clearly not nonsurgical candidate 5. Continue vasopressors 6. Empiric stress dose steroids Overall prognosis is very poor I had a discussion with the patient's daughters at bedside explained his current condition and very poor prognosis Family wished to continue all aggressive measures including CPR if needed Problems: JOSE BOONE MD, [facility] May 11, 2016 10:41
[2016-05-11] MEDS ORDERED: NA BICARBONATE 8.4% 50 ML SYG ONE (10:45)
[2016-05-11] MEDS ORDERED: NA BICARBONATE 8.4% 50 ML SYG IV STA ×2 (10:59→21:03)
[2016-05-11] MEDS: DOPamine-D5W 1.6 MG/ML 250 ML IV SCH (11:13)
[2016-05-11] MEDS ORDERED: SODIUM BICARBONATE (IV ADD) 150 MEQ in DEXTROSE 5% 1,000 ML IV SCH (11:30)
--- NOTE | 2016-05-11 11:32 | CONS ---
Date/Time of Note Date/Time of Note DATE: 05/11/16 TIME: 11:26 Consult Date/Type/Reason Admit Date/Time May 11, 2016 at 09:30 Initial Consult Date 05/09/16 Type of Consultation: ID Subjective intubated, intubated, on multiple pressors, nad, family at bedside Objective Vital Signs Date Time Temp Pulse Resp B/P Pulse Ox O2 Delivery O2 Flow Rate FiO2 05/11/16 08:00 112 26 75/44 95 05/11/16 07:30 Mechanical Ventilator 05/11/16 05:18 50 05/11/16 04:00 100.5 Intake and Output 05/10/16 05/10/16 05/11/16 15:00 23:00 07:00 Intake Total 747.68 ml 983.11 ml 1940.5 ml Output Total 190 ml 70 ml 5 ml Balance 557.68 ml 913.11 ml 1935.5 ml Results/Medications Result Diagram: 05/11/16 0445 05/11/16 0445 Results 24 hrs Laboratory Tests Test 05/10/16 11:58 05/10/16 15:00 05/10/16 17:55 05/10/16 18:00 Lactic Acid Level 17.9 *H 20.9 *H Activated Partial Thromboplast Time 41.8 H 40.7 H Arterial Blood HCO3 12.9 L Arterial Blood Base Excess -11.7 L Arterial Blood Oxygen Saturation 97.8 Bhupendra Test ACCEPTAB Arterial Blood Gas Puncture Site Left Radial Anion Gap 31 H Arterial Blood Carboxyhemoglobin 0.3 Arterial Blood Date Drawn 05/10/2016 3:02:32 PM Arterial Blood Methemoglobin 0.3 Arterial Blood pCO2 (Temp correct) 25.7 L Arterial Blood pH (Temp corrected) 7.317 L Arterial Blood pO2 (Temp corrected) 132.7 H Blood Gas A-a O2 Differential 122.9 H Blood Gas Actual Respiration Rate 27 Blood Gas Low PEEP Setting 0 Blood Gas Modality VENT - AC Blood Gas Notified Time 05/10/2016 3:12:15 PM Blood Gas Notified Whom JLD Blood Gas Respiration Rate 24.0 Blood Gas Specimen Source Blood arterial Blood Gas Temperature 37.0 Blood Gas Tidal Volume 500.0 Blood Urea Nitrogen 59 H Calcium Level 8.9 Carbon Dioxide Level 17 L Chloride Level 100 Creatinine 2.00 H D-Dimer > 50735.00 H FiO2 40.0 Fibrinogen 238.0 Glucose Level 106 # INR International Normalized Ratio 2.81 3.02 Oxyhemoglobin Percent 97.2 Plasma Fibrin Degradation Products >80 and <160 H Platelet Count 59 L 57 L Potassium Level 5.1 Prothrombin Time 30.0 H 31.7 H Prothrombin Time Ratio 2.3 2.5 Sodium Level 143 Thrombin Time 23.3 H 23.8 H Total Hemoglobin 11.6 L Urine Protein/Creatinine Ratio Urine Random Creatinine 107.40 Urine Random Sodium < 13 L Urine Total Protein Test 05/10/16 20:07 05/11/16 00:55 05/11/16 04:45 05/11/16 06:07 Potassium Level 5.3 H 5.6 H Activated Partial Thromboplast Time 41.5 H 43.9 H INR International Normalized Ratio 2.60 3.02 Lactic Acid Level > 24.0 *H > 24.0 *H Platelet Count 126 #L 97 #L Prothrombin Time 28.2 H 31.7 H Prothrombin Time Ratio 2.2 2.5 Thrombin Time 26.3 H 32.3 H Alanine Aminotransferase (ALT/SGPT) 1581 H Albumin 2.4 L Alkaline Phosphatase 670 #H Ammonia 54 #H Anion Gap 41 #H Aspartate Amino Transf (AST/SGOT) > 7500 H Band Neutrophils % 21.0 H Basophils # Blood Morphology Comment Blood Urea Nitrogen 67 H Calcium Level 8.3 L Carbon Dioxide Level 13 L Chloride Level 98 Creatinine 3.04 #H Differential Comment MANUAL DIFF Direct Bilirubin 3.70 #H Eosinophils # 0.6 H Eosinophils % 5.0 Glucose Level 28 #*L Hematocrit 30.1 L Hemoglobin 10.1 L Indirect Bilirubin 0.9 Lymphocytes # 2.6 Lymphocytes % 21.0 Mean Corpuscular Hemoglobin 30.6 Mean Corpuscular Hemoglobin Concent 33.6 Mean Corpuscular Volume 91.0 Mean Platelet Volume 7.8 Metamyelocytes # 0.3 Metamyelocytes % 2.0 H Monocytes # 1.0 H Monocytes % 8.0 Myelocytes # 0.3 Myelocytes % 2.0 H Neutrophils # 5.0 Neutrophils % 40.0 Polychromasia 1+ Promyelocytes # 0.1 Promyelocytes % 1.0 H Red Blood Count 3.31 L Red Cell Distribution Width 23.5 H Sodium Level 146 H Total Bilirubin 4.6 H Total Protein 5.5 L White Blood Count 12.6 H Bedside Glucose 106 Test 05/11/16 06:38 05/11/16 07:00 05/11/16 11:18 Bedside Glucose 99 86 Arterial Blood HCO3 8.3 *L Arterial Blood Base Excess -20.0 L Bhupendra Test N/A Arterial Blood Gas Puncture Site LB Arterial Blood Date Drawn 05/11/2016 7:20:00 AM Arterial Blood pCO2 (Temp correct) 27.6 L Arterial Blood pH (Temp corrected) 7.098 *L Arterial Blood pO2 (Temp corrected) 71.1 L Blood Gas A-a O2 Differential 254.4 H Blood Gas Actual Respiration Rate 27 Blood Gas Critical Value Read Back Y ALISON RN Blood Gas Low PEEP Setting 0 Blood Gas Modality VENT - AC Blood Gas Notified Time 05/11/2016 8:06:25 AM Blood Gas Notified Whom JLD Blood Gas Respiration Rate 24.0 Blood Gas Specimen Source Blood arterial Blood Gas Temperature 37.0 Blood Gas Tidal Volume 500.0 FiO2 50.0 Medications Current Medications Ondansetron HCl (Zofran Inj) 4 mg Q6H PRN IV NAUSEA AND/OR VOMITING; Start 05/09 at 16:30 Acetaminophen (Tylenol Tab) 650 mg Q6H PRN PO PAIN LEVEL 1-3 OR FEVER; Start at 16:30 Acetaminophen/ Hydrocodone Bitart ([place] (5/325)) 1 tab Q6H PRN PO MODERATE PAIN LEVEL 4-6; Start 05/09/16 at 16:30 Morphine Sulfate (morphine) 2 mg Q4H PRN IV SEVERE PAIN LEVEL 7-10 Last administered on 05/10/16 22:34; Admin Dose 2 MG; Start 05/09/16 at 16:30 Docusate Sodium (Colace) 100 mg Q12H PRN PO CONSTIPATION; Start 05/09/16 at 16: 30 Magnesium Hydroxide (Milk Of Mag) 30 ml DAILY PRN PO CONSTIPATION; Start at 16:30 Sodium Biphosphate/ Sodium Phosphate (Fleet Enema) 133 ml DAILY PRN [place] CONSTIPATION; Start 05/09/16 at 16:30 Pantoprazole (Protonix Iv) 40 mg DAILY@06 IV Last administered on 05/11/16 05: 41; Admin Dose 40 MG; Start 05/10/16 at 06:00 Lorazepam (Ativan) 0.5 mg Q6H PRN IV ANXIETY; Start 05/09/16 at 16:30 Vancomycin HCl (Vanco Iv Per Pharmacy) VANCOMYCIN PER PHARMACY NOTE XX ; Start 05/09/16 at 16:30 Hydralazine HCl (Apresoline) 10 mg Q6H PRN IV ELEVATED BLOOD PRESSURE; Start at 16:30 Nitroglycerin (Nitroglycerin (Sl Tab) 0.4 Mg) 1 tab Q5M PRN SL ANGINA; Start at 16:30 Cholecalciferol (Vitamin D) 1,000 unit DAILY PO Last administered on 05/11/16 09:41; Admin Dose 1,000 UNIT; Start 05/10/16 at 09:00 Finasteride (Proscar) 5 mg DAILY PO Last administered on 05/11/16 09:26; Admin Dose 5 MG; Start 05/10/16 at 09:00 Hydromorphone HCl (Dilaudid) 2 mg Q3H PRN IV SEVERE PAIN LEVEL 7-10; Start 05/09 at 22:30 Lactulose 15 gm 15 gm Q6 NGT Last administered on 05/11/16 05:41; Admin Dose 15 GM; Start 05/10/16 at 12:00 Vancomycin HCl/ Sodium Chloride (Vancocin/NS) 150 ml @ 75 mls/hr Q24H IVPB Last administered on 05/10/16 20:55; Admin Dose 75 MLS/HR; Start 05/10/16 at 20: 00; Status Future Hold Phytonadione 5 mg 5 mg DAILY NGT Last administered on 05/11/16 09:26; Admin Dose 5 MG; Start 05/10/16 at 17:30; Stop 05/15/16 at 08:59 Dopamine HCl/ Dextrose 250 ml @ 6.48 mls/hr TITRATE IV Last administered on 11:13; Admin Dose 6.48 MLS/HR; Start 05/10/16 at 19:00 Propofol 100 ml @ 2.592 mls/ hr Q12H IV Last administered on 05/10/16 18:58; Admin Dose 7.776 MLS/HR; Start 05/10/16 at 19:00 Norepinephrine 16 mg/Dextrose 500 ml @ 0 mls/hr TITRATE IV Last administered on 05/11/16 07:00; Admin Dose 3.75 MLS/HR; Start 05/11/16 at 07:00 Phenylephrine HCl 40 mg/Dextrose 500 ml @ 75 mls/hr TITRATE IV Last administered on 05/11/16 08:00; Admin Dose 225 MLS/HR; Start 05/11/16 at 03:00 Dextrose 1,000 ml @ 50 mls/hr Q20H IV Last administered on 05/11/16 07:53; Admin Dose 50 MLS/HR; Start 05/11/16 at 06:00 Vasopressin/ Dextrose (Vasostrict/D5W) 60 ml @ 1.2 mls/hr Q12H IV Last administered on 05/11/16 07:52; Admin Dose 1.2 MLS/HR; Start 05/11/16 at 07:00 Miscellaneous Information RANDOM VANCO LEVEL... ONCE ONCE XX ; Start 05/12/16 at 05:00; Stop 05/12/16 at 05:01 Imipenem/ Cilastatin Sodium (Primaxin 250 Mg/ 100 ml (Pmx)) 100 ml @ 100 mls/ hr Q8 IVPB ; Start 05/11/16 at 14:00 Hydrocortisone 100 mg 100 mg Q8 IV ; Start 05/11/16 at 14:00 Sodium Bicarbonate/ Dextrose (Na Bicarb/D5W) 1,150 ml @ 125 mls/hr Q9H12M IV ; Start 05/11/16 at 11:30 Assessment/Plan Chief Complaint/Hosp Course MICROBIOLOGY: Blood and urine culture preliminary negative. INDWELLINGS: Right chest Port-A-Cath and right IJ triple lumen catheter placed on this admission, endotracheal tube, NG tube and Rodríguez. DIAGNOSTICS: MRI of thoracic spine revealed extensive prostate cancer metastasis, with a questionable T7-9 extension of tumor. No definite compression. MRI of the lumber spine revealed a bulging disk at L3-4, with severe spinal stenosis and also metastatic prostate cancer. Cervical spine MRI showed extensive marrow replacement and metastatic disease, most pronounced involving C2, 4, 5, 6, T1 and T3 vertebral bodies. CT of the brain revealed 3-mm subacute right frontal and temporal subdural hematoma, suggestive of diffuse mixed density predominantly osteoblastic metastatic disease from prostate carcinoma. ANTIMICROBIALS: IV vancomycin and imipenem. PHYSICAL EXAMINATION: GENERAL: This is a well-developed, elderly man, who is lying comfortably in bed. The patient is sedated. HEENT: Head atraumatic, normocephalic. Sclerae anicteric. Buccal mucosa dry. NECK: Supple, trachea midline. CHEST: Chest rise is symmetrical. Breath sounds diminished to the bases. HEART: S1, S2. ABDOMEN: Distended, soft. Bowel tones hypoactive. EXTREMITIES: Mottled, cyanotic ASSESSMENT: 1. Sepsis, with acute respiratory failure, hypothermia and leukocytosis with bandemia on admission. 2. MSOF. 3. Metastatic prostate CA, with metastases to brain and spine. 4. Acute renal failure. 5. Subdural hematoma. 6. Anemia. PLAN: Doing poorly, hemodynamically unstable on multiple pressors, pending final cx, continue abx, prognosis poor, pending palliative care eval. KARYN GERARD Problems: TRAY BLANCO NP May 11, 2016 11:31
[2016-05-11] MEDS: IMIPENEM-CILAST 250MG IV (PMX) 100 ML IVPB SCH ×2 (12:02→22:00)
[2016-05-11 12:25] LABS: INR 3.98; PROTIME 39.5 Sec (12.2-14.2); PT RATIO 3.1
[2016-05-11 12:26] LABS: PARTIAL THROMBOPLASTIN TIME 55.3 Sec (25.0-35.0); THROMBIN TIME 34.8 SEC (13.8-19.1)
[2016-05-11 13:27] LABS: POTASSIUM 5.1 mmol/L (3.5-5.1)
[2016-05-11 13:31] LABS: CALCIUM 7.9 mg/dl (8.4-10.2)
[2016-05-11] MEDS: HYDROCORTISONE 100 MG INJ IV SCH ×2 (13:42→22:00)
--- NOTE | 2016-05-11 14:06 | PN ---
DATE: 05/11/2016 FAMILY CONFERENCE My complete consultation has not been transcribed on patient's chart yet. Mr. Gaona is a 60-year-o ld gentleman who is in the intensive care unit at [facility] has a history of meta static prostate cancer and is septic. Full consultation is pending. I had a meeting with the patie nt's daughters first and through a patient care director with patient's spouse over the telephone. The spouse has given us permission to speak to the children and to allow them to make decisions on her behalf. Initial meeting was done with the patient's 2 daughters who thereafter told that they wanted to rangel t until the 2 sons would arrive. Second meeting occurred with the entire group of siblings. I explai rodolfo Mr. Gaona's rapid deterioration in fact; he is on 3 pressors at this time and is not expected t o survive this hospitalization. Dr. Anaya explained that patient has metastatic prostate cancer and ex plained in detail the metabolic effect that the tumor has had upon his ability to fight off a seriou s infection as now. She has also explained to family members that he has had a very progressive agg ressive underlying malignancy. We turned our conversation to ongoing level of care and code status. We felt it more important to address the code status first of all and to not ask the family to wit hdraw care at this time. We do not want to destroy their hope that there may be some chance of, alth ough, a very low likelihood chance of recovery. The patient's family understood the severity of Mr. Gaona's underlying critical condition and they will stay at his bedside throughout the day. She arndt s given us permission to change his code status to DO NOT RESUSCITATE. All other care will be given in the event that he continues to deteriorate but does not and stays on pressors and becomes hy poxic and no chance at all of recovery. I will address the withdrawal of care with family members a t that time. Dictated By: KENYETTA WOOTEN MD, LP/GHASSAN Conf#: [id number] DID#: [id number]
[2016-05-11 14:07] LABS: CREATININE 3.4 mg/dl (0.61-1.24)
[2016-05-11] MEDS ORDERED: SOD CHLORIDE 0.9% 250 ML IV* ONE ×2 (14:50→20:43)
[2016-05-11] MEDS ORDERED: NORepinephrine 32 MG in DEXTROSE 5% 218 ML IV SCH (15:00)
[2016-05-11] MEDS ORDERED: DOPamine 1,600 MG in DEXTROSE 5% 210 ML IV SCH (15:00)
--- NOTE | 2016-05-11 15:02 | PN ---
Date/Time of Note Date/Time of Note DATE: 05/11/16 TIME: 14:59 Assessment/Plan VTE Prophylaxis VTE Prophylaxis Intervention: SCD's Lines/Catheters IV Catheter Type (from Nrs): Central Line Central line still needed: Yes Urinary Cath still in place: Yes Reason Cath still needed: urinary retention Assessment/Plan Chief Complaint/Hosp Course ASSESSMENT AND PLAN: 60-year-old male coming in with leukocytosis and weakness and lethargy, decreased p.o. intake, nausea, vomiting with signs of extensive ascites, possible SBP, severe metabolic lactic acidosis/sepsis, ARF. 1. Abdominal distention and weakness - sec to sepsis/lactic acidosis, all sec to prostrate ca metastatic to C,T,L spines possible SBP. Res failure as well now , with hepatic encephalopathy, elevated LFT's /liver failure. Now worsening lactic acidosis, in shock, on 4 pressor support, made DNR this AM. - continue intensive care unit, broad-spectrum antibiotics, imipenem and vancomycin, pressors - IVF's with bicarb, trend lactic acid. f/u pulm, and ID rec's - mech vent per pulm rec's - lactulose Q6 hrs, monitor LFT's, NH3 levels 2. ARF - sec to sepsis, 3rd spacing (low urine sodium) and now hypotension - all sec to metastatic prostate cancer - UO is minimal, on aggressive IVF's - f/u renal consult rec's, continue Rodríguez - IVF's w/ bicarbonate, monitor UO 3. History of prostate cancer metastasis - holding chemo meds for now, hematology/oncology and NSS consult on board. - Follow up their recommendations as well. - Continue current medications as well. 4. subdural hematoma - seen on Head CT. - holding anticoagulants, appreciate NSS rec's - monitor, transfuse plt and or FFP as needed 5. DIC - s/p plt and FFP yesterday. - checking fibrinogen Q 6 hrs - transfuse per NSS and Heme/Onc rec's. 5. Gastrointestinal prophylaxis - PPI. 6. Deep vein thrombosis prophylaxis - SCD's Overall poor prognosis - appreciate palliative care consult rec's- pt now DNR, but will continue to treat for now. Critical care time spent with pt care today = 50 min. Problems: Subjective 24 Hr Interval Summary Free Text/Dictation Now on 4 pressor support, seen by multiple specialists today, received plt and FFP transfusions last night. Exam/Review of Systems Vital Signs Vitals Vital Signs Date Time Temp Pulse Resp B/P Pulse Ox O2 Delivery O2 Flow Rate FiO2 05/11/16 13:45 129 28 106/63 96 Mechanical Ventilator 05/11/16 12:15 98.9 05/11/16 11:30 50 Intake and Output 05/10/16 05/10/16 05/11/16 15:00 23:00 07:00 Intake Total 747.68 ml 983.11 ml 1940.5 ml Output Total 190 ml 70 ml 5 ml Balance 557.68 ml 913.11 ml 1935.5 ml Exam GENERAL: The patient is lying in bed , intubated, family at bedside HEENT: unable to fully assess NECK: Supple. No thyromegaly. LUNGS: Clear to auscultation bilaterally. No wheezes. CARDIOVASCULAR: S1, S2 heard. No rubs or gallops. Slightly tachycardic heart rate. ABDOMEN: Soft, but distended with a positive fluid wave. No rebound or guarding. MUSCULOSKELETAL: 1+ pitting edema bilateral lower extremities to the mid calves. NEUROLOGIC: No focal deficits. Results Result Diagram: 05/11/16 1203 05/11/16 1300 Results 24 hrs Laboratory Tests Test 05/10/16 15:00 05/10/16 17:55 05/10/16 18:00 05/10/16 20:07 Activated Partial Thromboplast Time 41.8 H 40.7 H Arterial Blood HCO3 12.9 L Arterial Blood Base Excess -11.7 L Arterial Blood Oxygen Saturation 97.8 Bhupendra Test ACCEPTAB Arterial Blood Gas Puncture Site Left Radial Anion Gap 31 H Arterial Blood Carboxyhemoglobin 0.3 Arterial Blood Date Drawn 05/10/2016 3:02:32 PM Arterial Blood Methemoglobin 0.3 Arterial Blood pCO2 (Temp correct) 25.7 L Arterial Blood pH (Temp corrected) 7.317 L Arterial Blood pO2 (Temp corrected) 132.7 H Blood Gas A-a O2 Differential 122.9 H Blood Gas Actual Respiration Rate 27 Blood Gas Low PEEP Setting 0 Blood Gas Modality VENT - AC Blood Gas Notified Time 05/10/2016 3:12:15 PM Blood Gas Notified Whom JLD Blood Gas Respiration Rate 24.0 Blood Gas Specimen Source Blood arterial Blood Gas Temperature 37.0 Blood Gas Tidal Volume 500.0 Blood Urea Nitrogen 59 H Calcium Level 8.9 Carbon Dioxide Level 17 L Chloride Level 100 Creatinine 2.00 H D-Dimer > 20057.00 H FiO2 40.0 Fibrinogen 238.0 Glucose Level 106 # INR International Normalized Ratio 2.81 3.02 Oxyhemoglobin Percent 97.2 Plasma Fibrin Degradation Products >80 and <160 H Platelet Count 59 L 57 L Potassium Level 5.1 5.3 H Prothrombin Time 30.0 H 31.7 H Prothrombin Time Ratio 2.3 2.5 Sodium Level 143 Thrombin Time 23.3 H 23.8 H Total Hemoglobin 11.6 L Lactic Acid Level 20.9 *H Urine Protein/Creatinine Ratio Urine Random Creatinine 107.40 Urine Random Sodium < 13 L Urine Total Protein Test 05/11/16 00:55 05/11/16 04:45 05/11/16 06:07 05/11/16 06:38 Activated Partial Thromboplast Time 41.5 H 43.9 H INR International Normalized Ratio 2.60 3.02 Lactic Acid Level > 24.0 *H > 24.0 *H Platelet Count 126 #L 97 #L Prothrombin Time 28.2 H 31.7 H Prothrombin Time Ratio 2.2 2.5 Thrombin Time 26.3 H 32.3 H Alanine Aminotransferase (ALT/SGPT) 1581 H Albumin 2.4 L Alkaline Phosphatase 670 #H Ammonia 54 #H Anion Gap 41 #H Aspartate Amino Transf (AST/SGOT) > 7500 H Band Neutrophils % 21.0 H Basophils # Blood Morphology Comment Blood Urea Nitrogen 67 H Calcium Level 8.3 L Carbon Dioxide Level 13 L Chloride Level 98 Creatinine 3.04 #H Differential Comment MANUAL DIFF Direct Bilirubin 3.70 #H Eosinophils # 0.6 H Eosinophils % 5.0 Glucose Level 28 #*L Hematocrit 30.1 L Hemoglobin 10.1 L Indirect Bilirubin 0.9 Lymphocytes # 2.6 Lymphocytes % 21.0 Mean Corpuscular Hemoglobin 30.6 Mean Corpuscular Hemoglobin Concent 33.6 Mean Corpuscular Volume 91.0 Mean Platelet Volume 7.8 Metamyelocytes # 0.3 Metamyelocytes % 2.0 H Monocytes # 1.0 H Monocytes % 8.0 Myelocytes # 0.3 Myelocytes % 2.0 H Neutrophils # 5.0 Neutrophils % 40.0 Polychromasia 1+ Potassium Level 5.6 H Promyelocytes # 0.1 Promyelocytes % 1.0 H Red Blood Count 3.31 L Red Cell Distribution Width 23.5 H Sodium Level 146 H Total Bilirubin 4.6 H Total Protein 5.5 L White Blood Count 12.6 H Bedside Glucose 106 99 Test 05/11/16 07:00 05/11/16 11:18 05/11/16 12:03 05/11/16 13:00 Arterial Blood HCO3 8.3 *L Arterial Blood Base Excess -20.0 L Bhupendra Test N/A Arterial Blood Gas Puncture Site LB Arterial Blood Date Drawn 05/11/2016 7:20:00 AM Arterial Blood pCO2 (Temp correct) 27.6 L Arterial Blood pH (Temp corrected) 7.098 *L Arterial Blood pO2 (Temp corrected) 71.1 L Blood Gas A-a O2 Differential 254.4 H Blood Gas Actual Respiration Rate 27 Blood Gas Critical Value Read Back Y ALISON RN Blood Gas Low PEEP Setting 0 Blood Gas Modality VENT - AC Blood Gas Notified Time 05/11/2016 8:06:25 AM Blood Gas Notified Whom JLD Blood Gas Respiration Rate 24.0 Blood Gas Specimen Source Blood arterial Blood Gas Temperature 37.0 Blood Gas Tidal Volume 500.0 FiO2 50.0 Bedside Glucose 86 Activated Partial Thromboplast Time 55.3 H INR International Normalized Ratio 3.98 Lactic Acid Level > 24.0 *H Platelet Count 94 L Prothrombin Time 39.5 #H Prothrombin Time Ratio 3.1 Thrombin Time 34.8 H Anion Gap 43 H Blood Urea Nitrogen 63 H Calcium Level 7.9 L Carbon Dioxide Level 11 L Chloride Level 92 L Creatinine 3.40 H Glucose Level 130 # Potassium Level 5.1 Sodium Level 141 Medications Medications Current Medications Ondansetron HCl (Zofran Inj) 4 mg Q6H PRN IV NAUSEA AND/OR VOMITING; Start 05/09 at 16:30 Acetaminophen (Tylenol Tab) 650 mg Q6H PRN PO PAIN LEVEL 1-3 OR FEVER; Start at 16:30 Acetaminophen/ Hydrocodone Bitart ([place] (5/325)) 1 tab Q6H PRN PO MODERATE PAIN LEVEL 4-6; Start 05/09/16 at 16:30 Morphine Sulfate (morphine) 2 mg Q4H PRN IV SEVERE PAIN LEVEL 7-10 Last administered on 05/10/16t 22:34; Admin Dose 2 MG; Start 05/09/16 at 16:30 Docusate Sodium (Colace) 100 mg Q12H PRN PO CONSTIPATION; Start 05/09/16 at 16: 30 Magnesium Hydroxide (Milk Of Mag) 30 ml DAILY PRN PO CONSTIPATION; Start at 16:30 Sodium Biphosphate/ Sodium Phosphate (Fleet Enema) 133 ml DAILY PRN [place] CONSTIPATION; Start 05/09/16 at 16:30 Pantoprazole (Protonix Iv) 40 mg DAILY@06 IV Last administered on 05/11/16 05: 41; Admin Dose 40 MG; Start 05/10/16 at 06:00 Lorazepam (Ativan) 0.5 mg Q6H PRN IV ANXIETY; Start 05/09/16 at 16:30 Vancomycin HCl (Vanco Iv Per Pharmacy) VANCOMYCIN PER PHARMACY NOTE XX ; Start 05/09/16 at 16:30 Hydralazine HCl (Apresoline) 10 mg Q6H PRN IV ELEVATED BLOOD PRESSURE; Start at 16:30 Nitroglycerin (Nitroglycerin (Sl Tab) 0.4 Mg) 1 tab Q5M PRN SL ANGINA; Start at 16:30 Cholecalciferol (Vitamin D) 1,000 unit DAILY PO Last administered on 05/11/16 09:41; Admin Dose 1,000 UNIT; Start 05/10/16 at 09:00 Finasteride (Proscar) 5 mg DAILY PO Last administered on 05/11/16 09:26; Admin Dose 5 MG; Start 05/10/16 at 09:00 Hydromorphone HCl (Dilaudid) 2 mg Q3H PRN IV SEVERE PAIN LEVEL 7-10; Start 05/09 at 22:30 Lactulose 15 gm 15 gm Q6 NGT Last administered on 05/11/16 12:58; Admin Dose 15 GM; Start 05/10/16 at 12:00 Vancomycin HCl/ Sodium Chloride (Vancocin/NS) 150 ml @ 75 mls/hr Q24H IVPB Last administered on 05/10/16 20:55; Admin Dose 75 MLS/HR; Start 05/10/16 at 20: 00; Status Future Hold Phytonadione 5 mg 5 mg DAILY NGT Last administered on 05/11/16 09:26; Admin Dose 5 MG; Start 05/10/16 at 17:30; Stop 05/15/16 at 08:59 Propofol 100 ml @ 2.592 mls/ hr Q12H IV Last administered on 05/10/16 18:58; Admin Dose 7.776 MLS/HR; Start 05/10/16 at 19:00 Dextrose 1,000 ml @ 50 mls/hr Q20H IV Last administered on 05/11/16 07:53; Admin Dose 50 MLS/HR; Start 05/11/16 at 06:00 Vasopressin/ Dextrose (Vasostrict/D5W) 60 ml @ 1.2 mls/hr Q12H IV Last administered on 05/11/16 07:52; Admin Dose 1.2 MLS/HR; Start 05/11/16 at 07:00 Miscellaneous Information RANDOM VANCO LEVEL... ONCE ONCE XX ; Start 05/12/16 at 05:00; Stop 05/12/16 at 05:01 Imipenem/ Cilastatin Sodium (Primaxin 250 Mg/ 100 ml (Pmx)) 100 ml @ 100 mls/ hr Q8 IVPB Last administered on 05/11/16 12:02; Admin Dose 100 MLS/HR; Start at 14:00 Hydrocortisone 100 mg 100 mg Q8 IV Last administered on 05/11/16 13:42; Admin Dose 100 MG; Start 05/11/16 at 14:00 Sodium Bicarbonate 150 meq/Dextrose 1,150 ml @ 125 mls/hr Q9H12M IV Last administered on 05/11/16 12:02; Admin Dose 125 MLS/HR; Start 05/11/16 at 11:30 Norepinephrine 32 mg/Dextrose 250 ml @ 0.46 mls/hr TITRATE IV ; Start 05/11/16 at 15:00 Phenylephrine HCl 80 mg/Dextrose 250 ml @ 0 mls/hr TITRATE IV ; Start 05/11/16 at 15:00 Dopamine HCl/ Dextrose (D5W) 250 ml @ 0 mls/hr TITRATE IV ; Start 05/11/16 at 15: 00 MURRAY HOLLINGSWORTH May 11, 2016 15:02
--- NOTE | 2016-05-11 15:21 | CONS ---
Date/Time of Note Date/Time of Note DATE: 05/11/16 TIME: 14:33 Assessment/Plan Assessment/Plan Chief Complaint/Hosp Course The patient is a 60 year old male treated by Dr. César Barnes with metastatic prostate cancer, GS 10, with diffuse osseous mets and diffuse LAD, diagnosed 2015 previously on hormonal therapy and taxotere/carboplatin/avastin then xtandi with progression, and now was planning on being switched to cabazitaxel due to progression of disease, but presents with lethargy, decreased PO intake, back and abdominal pain, weakness and increased abdominal distention for the past week. The patient was found to be septic with acute respiratory failure, hypothermia, with leukocytosis and bandemia and lactic acidosis, metabolic acidosis with respiratory compensation, acute renal failure, hyperkalemia, acute/subacute subdural hematomas, elevated liver enzymes with elevated ammonia level (query shock liver, CT scan from 05/06/16 shows no liver mets), and thrombocytopenia. Patient is intubated and sedated, without pressors, on broad spectrum antibiotics. - MRI spine 05/09/16 showed diffuse, heterogeneous decreased marrow signal consistent with extensive prostate cancer metastases but no abnormal epidural enhancement to suggest extraosseous tumor extension. - CT head 05/09/16 Approximate 3 mm thick subacute right frontal and temporal subdural hematoma. There is also appearance of approximate 2 mm thick upper left frontal acute subdural hematoma. There is also appearance of approximate 2 mm thick upper left parietal acute extra-axial likely subdural hematoma. 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 Appreciate neurosurgery recs for platelet transfusions and correction of coagulopathy if possible; nonsurgical candidate per neurosurgery. - If paracentesis performed, please send for cytology - Case discussed with his primary oncologist Dr. Barnes. Plan for supportive care, then plan to initiate cabazitaxel if patient recovers. Prognosis guarded. - Palliative care team on board. I participated in family meeting with two daughters today along with Dr. Garland: patient now DNR, will continue supportive care and current level of care. has given daughters decision making [place]. - Thrombocytopenia likely due to sepsis and DIC related to sepsis and malignancy , possible contribution from vancomycin, also likely bone marrow involvement from malignancy with myelocytes and metamyelocytes on smear and evidence of bone marrow replacement on MRI. - Coagulopathy may be related to DIC vs. liver failure - Please give cryo if fibrinogen < 150, would also recommend platelet transfusion if platelet < 75 given SDH. Will give 2 units FFP given coagulopathy. Will continue to follow. Problems: Consultation Date/Type/Reason Admit Date/Time May 11, 2016 at 09:30 Initial Consult Date 05/09/16 Type of Consultation: Hematology/Oncology 24 HR Interval Summary Free Text/Dictation Patient started on three pressors overnight. Family meeting held, patient now DNR. Exam/Review of Systems Vital Signs Vitals Vital Signs Date Time Temp Pulse Resp B/P Pulse Ox O2 Delivery O2 Flow Rate FiO2 05/11/16 13:45 129 28 106/63 96 Mechanical Ventilator 05/11/16 12:15 98.9 05/11/16 11:30 50 Intake and Output 05/10/16 05/10/16 05/11/16 15:00 23:00 07:00 Intake Total 747.68 ml 983.11 ml 1940.5 ml Output Total 190 ml 70 ml 5 ml Balance 557.68 ml 913.11 ml 1935.5 ml Results Result Diagram: 05/11/16 1203 05/11/16 1300 Results 24 hrs Laboratory Tests Test 05/10/16 15:00 05/10/16 17:55 05/10/16 18:00 05/10/16 20:07 Activated Partial Thromboplast Time 41.8 H 40.7 H Arterial Blood HCO3 12.9 L Arterial Blood Base Excess -11.7 L Arterial Blood Oxygen Saturation 97.8 Bhupendra Test ACCEPTAB Arterial Blood Gas Puncture Site Left Radial Anion Gap 31 H Arterial Blood Carboxyhemoglobin 0.3 Arterial Blood Date Drawn 05/10/2016 3:02:32 PM Arterial Blood Methemoglobin 0.3 Arterial Blood pCO2 (Temp correct) 25.7 L Arterial Blood pH (Temp corrected) 7.317 L Arterial Blood pO2 (Temp corrected) 132.7 H Blood Gas A-a O2 Differential 122.9 H Blood Gas Actual Respiration Rate 27 Blood Gas Low PEEP Setting 0 Blood Gas Modality VENT - AC Blood Gas Notified Time 05/10/2016 3:12:15 PM Blood Gas Notified Whom JLD Blood Gas Respiration Rate 24.0 Blood Gas Specimen Source Blood arterial Blood Gas Temperature 37.0 Blood Gas Tidal Volume 500.0 Blood Urea Nitrogen 59 H Calcium Level 8.9 Carbon Dioxide Level 17 L Chloride Level 100 Creatinine 2.00 H D-Dimer > 42587.00 H FiO2 40.0 Fibrinogen 238.0 Glucose Level 106 # INR International Normalized Ratio 2.81 3.02 Oxyhemoglobin Percent 97.2 Plasma Fibrin Degradation Products >80 and <160 H Platelet Count 59 L 57 L Potassium Level 5.1 5.3 H Prothrombin Time 30.0 H 31.7 H Prothrombin Time Ratio 2.3 2.5 Sodium Level 143 Thrombin Time 23.3 H 23.8 H Total Hemoglobin 11.6 L Lactic Acid Level 20.9 *H Urine Protein/Creatinine Ratio Urine Random Creatinine 107.40 Urine Random Sodium < 13 L Urine Total Protein Test 05/11/16 00:55 05/11/16 04:45 05/11/16 06:07 05/11/16 06:38 Activated Partial Thromboplast Time 41.5 H 43.9 H INR International Normalized Ratio 2.60 3.02 Lactic Acid Level > 24.0 *H > 24.0 *H Platelet Count 126 #L 97 #L Prothrombin Time 28.2 H 31.7 H Prothrombin Time Ratio 2.2 2.5 Thrombin Time 26.3 H 32.3 H Alanine Aminotransferase (ALT/SGPT) 1581 H Albumin 2.4 L Alkaline Phosphatase 670 #H Ammonia 54 #H Anion Gap 41 #H Aspartate Amino Transf (AST/SGOT) > 7500 H Band Neutrophils % 21.0 H Basophils # Blood Morphology Comment Blood Urea Nitrogen 67 H Calcium Level 8.3 L Carbon Dioxide Level 13 L Chloride Level 98 Creatinine 3.04 #H Differential Comment MANUAL DIFF Direct Bilirubin 3.70 #H Eosinophils # 0.6 H Eosinophils % 5.0 Glucose Level 28 #*L Hematocrit 30.1 L Hemoglobin 10.1 L Indirect Bilirubin 0.9 Lymphocytes # 2.6 Lymphocytes % 21.0 Mean Corpuscular Hemoglobin 30.6 Mean Corpuscular Hemoglobin Concent 33.6 Mean Corpuscular Volume 91.0 Mean Platelet Volume 7.8 Metamyelocytes # 0.3 Metamyelocytes % 2.0 H Monocytes # 1.0 H Monocytes % 8.0 Myelocytes # 0.3 Myelocytes % 2.0 H Neutrophils # 5.0 Neutrophils % 40.0 Polychromasia 1+ Potassium Level 5.6 H Promyelocytes # 0.1 Promyelocytes % 1.0 H Red Blood Count 3.31 L Red Cell Distribution Width 23.5 H Sodium Level 146 H Total Bilirubin 4.6 H Total Protein 5.5 L White Blood Count 12.6 H Bedside Glucose 106 99 Test 05/11/16 07:00 05/11/16 11:18 05/11/16 12:03 05/11/16 13:00 Arterial Blood HCO3 8.3 *L Arterial Blood Base Excess -20.0 L Bhupendra Test N/A Arterial Blood Gas Puncture Site LB Arterial Blood Date Drawn 05/11/2016 7:20:00 AM Arterial Blood pCO2 (Temp correct) 27.6 L Arterial Blood pH (Temp corrected) 7.098 *L Arterial Blood pO2 (Temp corrected) 71.1 L Blood Gas A-a O2 Differential 254.4 H Blood Gas Actual Respiration Rate 27 Blood Gas Critical Value Read Back Y ALISON GERARD Blood Gas Low PEEP Setting 0 Blood Gas Modality VENT - AC Blood Gas Notified Time 05/11/2016 8:06:25 AM Blood Gas Notified Whom JLD Blood Gas Respiration Rate 24.0 Blood Gas Specimen Source Blood arterial Blood Gas Temperature 37.0 Blood Gas Tidal Volume 500.0 FiO2 50.0 Bedside Glucose 86 Activated Partial Thromboplast Time 55.3 H INR International Normalized Ratio 3.98 Lactic Acid Level > 24.0 *H Platelet Count 94 L Prothrombin Time 39.5 #H Prothrombin Time Ratio 3.1 Thrombin Time 34.8 H Anion Gap 43 H Blood Urea Nitrogen 63 H Calcium Level 7.9 L Carbon Dioxide Level 11 L Chloride Level 92 L Creatinine 3.40 H Glucose Level 130 # Potassium Level 5.1 Sodium Level 141 Medications Medications Current Medications Ondansetron HCl (Zofran Inj) 4 mg Q6H PRN IV NAUSEA AND/OR VOMITING; Start 05/09 at 16:30 Acetaminophen (Tylenol Tab) 650 mg Q6H PRN PO PAIN LEVEL 1-3 OR FEVER; Start at 16:30 Acetaminophen/ Hydrocodone Bitart ([place] (5/325)) 1 tab Q6H PRN PO MODERATE PAIN LEVEL 4-6; Start 05/09/16 at 16:30 Morphine Sulfate (morphine) 2 mg Q4H PRN IV SEVERE PAIN LEVEL 7-10 Last administered on 05/10/16t 22:34; Admin Dose 2 MG; Start 05/09/16 at 16:30 Docusate Sodium (Colace) 100 mg Q12H PRN PO CONSTIPATION; Start 05/09/16 at 16: 30 Magnesium Hydroxide (Milk Of Mag) 30 ml DAILY PRN PO CONSTIPATION; Start at 16:30 Sodium Biphosphate/ Sodium Phosphate (Fleet Enema) 133 ml DAILY PRN [place] CONSTIPATION; Start 05/09/16 at 16:30 Pantoprazole (Protonix Iv) 40 mg DAILY@06 IV Last administered on 05/11/16 05: 41; Admin Dose 40 MG; Start 05/10/16 at 06:00 Lorazepam (Ativan) 0.5 mg Q6H PRN IV ANXIETY; Start 05/09/16 at 16:30 Vancomycin HCl (Vanco Iv Per Pharmacy) VANCOMYCIN PER PHARMACY NOTE XX ; Start 05/09/16 at 16:30 Hydralazine HCl (Apresoline) 10 mg Q6H PRN IV ELEVATED BLOOD PRESSURE; Start at 16:30 Nitroglycerin (Nitroglycerin (Sl Tab) 0.4 Mg) 1 tab Q5M PRN SL ANGINA; Start at 16:30 Cholecalciferol (Vitamin D) 1,000 unit DAILY PO Last administered on 05/11/16 09:41; Admin Dose 1,000 UNIT; Start 05/10/16 at 09:00 Finasteride (Proscar) 5 mg DAILY PO Last administered on 05/11/16 09:26; Admin Dose 5 MG; Start 05/10/16 at 09:00 Hydromorphone HCl (Dilaudid) 2 mg Q3H PRN IV SEVERE PAIN LEVEL 7-10; Start 05/09 at 22:30 Lactulose 15 gm 15 gm Q6 NGT Last administered on 05/11/16 12:58; Admin Dose 15 GM; Start 05/10/16 at 12:00 Vancomycin HCl/ Sodium Chloride (Vancocin/NS) 150 ml @ 75 mls/hr Q24H IVPB Last administered on 05/10/16 20:55; Admin Dose 75 MLS/HR; Start 05/10/16 at 20: 00; Status Future Hold Phytonadione 5 mg 5 mg DAILY NGT Last administered on 05/11/16 09:26; Admin Dose 5 MG; Start 05/10/16 at 17:30; Stop 05/15/16 at 08:59 Dopamine HCl/ Dextrose 250 ml @ 6.48 mls/hr TITRATE IV Last administered on 11:13; Admin Dose 6.48 MLS/HR; Start 05/10/16 at 19:00 Propofol 100 ml @ 2.592 mls/ hr Q12H IV Last administered on 05/10/16 18:58; Admin Dose 7.776 MLS/HR; Start 05/10/16 at 19:00 Norepinephrine 16 mg/Dextrose 500 ml @ 0 mls/hr TITRATE IV Last administered on 05/11/16 11:41; Admin Dose 56.25 MLS/HR; Start 05/11/16 at 07:00 Phenylephrine HCl 40 mg/Dextrose 500 ml @ 75 mls/hr TITRATE IV Last administered on 05/11/16 08:00; Admin Dose 225 MLS/HR; Start 05/11/16 at 03:00 Dextrose 1,000 ml @ 50 mls/hr Q20H IV Last administered on 05/11/16 07:53; Admin Dose 50 MLS/HR; Start 05/11/16 at 06:00 Vasopressin/ Dextrose (Vasostrict/D5W) 60 ml @ 1.2 mls/hr Q12H IV Last administered on 05/11/16 07:52; Admin Dose 1.2 MLS/HR; Start 05/11/16 at 07:00 Miscellaneous Information RANDOM VANCO LEVEL... ONCE ONCE XX ; Start 05/12/16 at 05:00; Stop 05/12/16 at 05:01 Imipenem/ Cilastatin Sodium (Primaxin 250 Mg/ 100 ml (Pmx)) 100 ml @ 100 mls/ hr Q8 IVPB Last administered on 05/11/16 12:02; Admin Dose 100 MLS/HR; Start at 14:00 Hydrocortisone 100 mg 100 mg Q8 IV Last administered on 05/11/16 13:42; Admin Dose 100 MG; Start 05/11/16 at 14:00 Sodium Bicarbonate/ Dextrose (Na Bicarb/D5W) 1,150 ml @ 125 mls/hr Q9H12M IV Last administered on 05/11/16 12:02; Admin Dose 125 MLS/HR; Start 05/11/16 at 11: 30 MARY KATE PAGAN MD May 11, 2016 15:21
[2016-05-11] MEDS: PHENYLephrine 80 MG in DEXTROSE 5% 242 ML IV SCH ×2 (17:13→22:03)
[2016-05-11 19:19] LABS: INR 4.52; PT RATIO 3.4
[2016-05-11 19:20] LABS: THROMBIN TIME 37.4 SEC (13.8-19.1)
[2016-05-11 19:49] LABS: PROTIME 42.9 Sec (12.2-14.2)
[2016-05-11 19:50] LABS: PARTIAL THROMBOPLASTIN TIME 66.8 Sec (25.0-35.0)
[2016-05-12] VITALS: PULSE 0
[2016-05-12] MEDS: LACTULOSE 30ML CUP NGT SCH
[2016-05-12 00:10] VITALS: RESP 24
--- NOTE | 2016-05-12 06:36 | CONS ---
DATE OF ADMISSION: 05/11/2016 DATE OF CONSULTATION: 05/10/2016 TYPE OF CONSULTATION: Palliative care. HISTORY OF PRESENT ILLNESS: A 60-year-old gentleman who has history of metastatic prostate cancer, [place] score 10 with progression, on chemotherapy, presented to [facility] weak, lethargic, leukocytosis and clinical findings of SVT. The patient also has significant lactic acido sis and metabolic acidosis. He is currently in the intensive care unit and receiving aggressive bro ad spectrum IV antibiotic coverage, being seen by ID, hematology/oncology, nephrology and pulmonary medicine. His prognosis is extremely poor at this point and I am asked to speak to family members. MEDICATIONS: Please refer to reconciliation sheets. ALLERGIES: NO KNOWN DRUG ALLERGIES. MAJOR MEDICAL PROBLEMS IN THE PAST: For this consultation is primarily per history of present illne ss. SOCIAL HISTORY: Unremarkable without a history of smoking, drinking. It is unclear where patient cu rrently lives at this time. FAMILY HISTORY: Cannot be obtained. REVIEW OF SYSTEMS: Cannot be obtained. PHYSICAL EXAMINATION: GENERAL: Shows an emaciated-appearing elderly gentleman. VITAL SIGNS: Blood pressure 83/44, pulse 105, respirations 26, pulse ox of 97 on 50% FIO2. HEENT: Normocephalic, atraumatic, anicteric, acyanotic, ashen-appearing on examination. CHEST: Shows distant breath sounds throughout both lung alfonso. COR: S1, S2, without S3, S4, murmur, gallop, rub. Normal rate, normal rhythm. ABDOMEN: Grossly distended. LABORATORY TESTS: Have been reviewed. Significant for white blood cell count of 12.6, down from of 20.6; hemoglobin of 10.1, hematocrit of 30.1, MCV of 91.0, platelet count of 97,000. Refrigeration Houseman paul: Serum sodium 146, potassium 5.6, chloride 98, bicarbonate of 31, BUN of 67, creatinine 3.04. Prior BUN 59, prior creatinine on 05/10 of 2.0. IMAGING STUDY: Right CVP tip has been pulled back with the tip near the atrial clavicle juncti on overlying the tip of the right Port-A-Cath, appears to be in the right atrium, endotracheal tube tip approximately 1.5 cm above the mj, inflation of lungs and bibasilar atelectasis, diffus e osteoblastic metastasis. ASSESSMENT AND PLAN: This is a critically ill 60-year-old gentleman with metastatic prostate cancer with metastasis in the intensive care unit and septic. I will schedule a consultation with family as soon as possible. Currently is a full code. At that time will address his code status with famil y members for his ongoing level of care since patient has deteriorated and is currently on 3 pressor s. Dictated By: KENYETTA WOOTEN MD, LP/GHASSAN Conf#: [id number] DID#: [id number]
--- NOTE | 2016-05-12 11:29 | DES ---
Date/Time of Note Date/Time of Note DATE: 05/12/16 TIME: 11:13 Discharge/ Summary Admission/Discharge Info Admit Date/Time May 11, 2016 at 09:30 Discharge Date/Time May 11, 2016 at 22:41 Final Diagnosis 1. Abdominal distention and weakness - sec to sepsis/lactic acidosis, all sec to prostrate ca metastatic to C,T,L spines 2. Suspected SBP. 3. Res failure - intubated 4. hepatic encephalopathy - with elevated LFT's /liver failure. 5. ARF - sec to sepsis, 3rd spacing (low urine sodium) and now hypotension - all sec to metastatic prostate cancer 6. History of prostate cancer metastasis -metastatic to C,T,L spines 7. subdural hematoma with osseous brain mets 8. DIC - s/p plt and FFP 9. Thrombocytopenia likely due to sepsis and DIC Preliminary Cause of 1. res distress - sec to shock and metabolic lactic acidosis (days) 2. advanced prostate ca with distant metastasis - months Hospital Course 60 year old male treated by Dr. César Barnes with metastatic prostate cancer, GS 10, with diffuse osseous mets and diffuse LAD, diagnosed 09/2015 previously on hormonal therapy and taxotere/carboplatin/avastin then xtandi with progression, and now was planning on being switched to cabazitaxel due to progression of disease, but presented to ER on 05/09/16 with lethargy, decreased PO intake, back and abdominal pain, weakness and increased abdominal distention for the past week. The patient was found to be septic with acute respiratory failure, hypothermia, with leukocytosis and bandemia and lactic acidosis, metabolic acidosis with respiratory compensation, acute renal failure, hyperkalemia, acute/subacute subdural hematomas, elevated liver enzymes with elevated ammonia level (query shock liver, CT scan from 05/06/16 shows no liver mets), and thrombocytopenia. Patient was intubated and sedated, without pressors, on broad spectrum antibiotics. Imaging was also performed: - MRI spine 05/09/16 showed diffuse, heterogeneous decreased marrow signal consistent with extensive prostate cancer metastases but no abnormal epidural enhancement to suggest extraosseous tumor extension. - CT head 05/09/16 Approximate 3 mm thick subacute right frontal and temporal subdural hematoma. There is also appearance of approximate 2 mm thick upper left frontal acute subdural hematoma. There is also appearance of approximate 2 mm thick upper left parietal acute extra-axial likely subdural hematoma. 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 Appreciate neurosurgery recs for platelet transfusions and correction of coagulopathy if possible; nonsurgical candidate per neurosurgery. Multiple specialists including NSS, Heme/Onc,ID, pulm, renal, and Palliative care team on board. Aggressive IVF's with bicarb were given, UO was minimal to none, lactic acidosis was still present and pt went into shock and required 4 pressors drug therepy, in addition to the broad spectrum abx given. Family meeting was held with two daughters along with Dr. Garland and Heme/Onc team - patient made DNR. gave daughters decision making capacity.On the evening of 05/11/16, family decided to stop all medications, and pt on 05/11/16 at 22:41. Pending Labs/Cultures Laboratory Tests Test 05/11/16 11:18 05/11/16 12:03 05/11/16 13:00 05/11/16 18:23 Bedside Glucose 86mg/dL (70-220) Activated Partial Thromboplast Time 55.3Sec (25.0-35.0) 66.8Sec (25.0-35.0) INR International Normalized Ratio 3.98 4.52 Lactic Acid Level > 24.0mmol/L (0.5-2.2) > 24.0mmol/L (0.5-2.2) Platelet Count 9410^3/UL (140-440) 7110^3/UL (140-440) Prothrombin Time 39.5Sec (12.2-14.2) 42.9Sec (12.2-14.2) Prothrombin Time Ratio 3.1 3.4 Thrombin Time 34.8SEC (13.8-19.1) 37.4SEC (13.8-19.1) Anion Gap 43 (8-16) Blood Urea Nitrogen 63mg/dl (7-20) Calcium Level 7.9mg/dl (8.4-10.2) Carbon Dioxide Level 11mmol/L (21-31) Chloride Level 92mmol/L (97-110) Creatinine 3.40mg/dl (0.61-1.24) Glucose Level 130mg/dl (70-220) Potassium Level 5.1mmol/L (3.5-5.1) Sodium Level 141mmol/L (135-144) Fibrinogen 151.0mg/dl (207-461) MURRAY HOLLINGSWORTH. May 12, 2016 11:25
== END 2016-05-11 22:41 | disposition expired | DRG 871 ==
LOC: E/R 12:39 → ICU 14:52 → OBSVTOIN 05-11 09:30
PROVIDERS: ADMIT Family Medicine; ATTEND Family Medicine
PROC: 0BH17EZ Insertion of Endotracheal Airway into Trachea, Via Natural or Artificial Opening (ICD-10-PCS; principal; 2016-05-09)
PROC: 5A1935Z Respiratory Ventilation, Less than 24 Consecutive Hours (ICD-10-PCS; 2016-05-10)
PROC: 30233K1 Transfusion of Nonautologous Frozen Plasma into Peripheral Vein, Percutaneous Approach (ICD-10-PCS; 2016-05-10)
PROC: 30233K1 Transfusion of Nonautologous Frozen Plasma into Peripheral Vein, Percutaneous Approach (ICD-10-PCS; 2016-05-11)
PROC: 6A550Z2 Pheresis of Platelets, Single (ICD-10-PCS; 2016-05-11)
DX: A41.9 Sepsis, unspecified organism (principal); I62.01 Nontraumatic acute subdural hemorrhage; D65 Disseminated intravascular coagulation [defibrination syndrome]; J96.00 Acute respiratory failure, unspecified whether with hypoxia or hypercapnia; E87.2 Acidosis; R18.0 Malignant ascites; E87.0 Hyperosmolality and hypernatremia; N17.9 Acute kidney failure, unspecified; C79.51 Secondary malignant neoplasm of bone; C79.31 Secondary malignant neoplasm of brain; C79.89 Secondary malignant neoplasm of other specified sites; D68.9 Coagulation defect, unspecified; C61 Malignant neoplasm of prostate; E87.5 Hyperkalemia; N40.1 Benign prostatic hyperplasia with lower urinary tract symptoms; R33.8 Other retention of urine; K72.90 Hepatic failure, unspecified without coma; Z66 Do not resuscitate
CPT/HCPCS: 31500; 36430; 36600; 70450; 71010; 72141; 72146; 72147; 72148; 76700; 80048; 80053; 80061; 80076; 81001; 81003; 82140; 82570; 82803; 82962; 83036; 83605; 83690; 83735; 84100; 84132; 84300; 84439; 84443; 85025; 85049; 85362; 85378; 85384; 85610; 85670; 85730; 86644; 86850; 86900; 86901; 87040; 87086; 93005; 94002; 94003; 94770; 99217; C9113; G0378; J0610; J0696; J0743; J1170; J1265; J1720; J1815; J2060; J2270; J2370; J3370; J7030; J7040; J7050; J7070; P9035; P9059